=== PATIENT | male | born 1930 | race Caucasian/White ===

== ENCOUNTER 2019-06-14 04:24 | Inpatient (IN) ==
[2019-06-14] MEDS ORDERED: IPRATROPIUM/ALBUTEROL 3 ML AMPUL.NEB NEB ONE (05:00)
--- NOTE | 2019-06-14 05:00 | Emergency Department Note ---
Fall HPI - General Chief Complaint: Fall Stated Complaint: fALL Time Seen by Provider: 06/14/19 04:49 Source: patient Mode of arrival: ambulatory Limitations: no limitations - History of Present Illness HPI Narrative: 89-year-old male brought in by his children for fall out of bed this morning. He is confused and talking nonsense. He is unable to get up by himself. In the process of getting him up he scraped his knees. No other injuries are reported. All history is per his children-I am unable to get a full history or review of systems from him - Related Data Home Medications Medication Instructions Recorded Confirmed Bisoprolol Fumarate 5 mg PO DAILY 05/09/17 05/06/19 Pravastatin [Pravachol] 40 mg PO HS 05/09/17 05/06/19 metFORMIN [Glucophage] 750 mg PO BIDCC 05/09/17 05/06/19 aspirin 81 mg tablet,delayed 81 mg PO QDAY 10/13/17 05/06/19 release pantoprazole 40 mg tablet,delayed 40 mg PO QDAY 10/13/17 05/06/19 release ferrous gluconate 324 mg (37.5 mg 324 mg PO QDAY tab 12/15/17 05/06/19 iron) tablet chlorthalidone 25 mg tablet 25 mg PO QDAY 05/27/18 05/06/19 hydrochlorothiazide 12.5 mg capsule 12.5 mg PO QDAY 05/27/18 05/06/19 telmisartan 80 mg-amlodipine 5 mg 1 tab PO QDAY 05/27/18 05/06/19 tablet vitamins A,C,D-apjr-yptldb 14,320 1 cap PO BID 05/27/18 05/06/19 unit-226 mg-200 unit capsule vitamins A,C,D-shxc-nanjha 14,320 1 cap PO ONCE cap 05/06/19 05/06/19 unit-226 mg-200 unit capsule Previous Rx's Medication Instructions Recorded finasteride 5 mg tablet 5 mg PO QDAY #30 tab 11/23/18 tamsulosin 0.4 mg capsule 0.8 mg PO QDAY #60 cap 11/23/18 Allergies Allergy/AdvReac Type Severity Reaction Status Date / Time No Known Drug Allergies Allergy Verified 05/06/19 09:52 Review of Systems All systems ED: reviewed and negative except as stated. 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) Urge incontinence (Chronic) Essential (primary) hypertension (Chronic) Type 2 diabetes mellitus without complication (Chronic) 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 Normocephalic atraumatic. Conjunctive are clear sclerae white and icteric. Wearing nasal cannula oxygen. No nasal congestion or discharge. Oropharynx pink moist. Posterior pharynx clear. Neck is supple without lymphadenopathy thyromegaly or carotid bruit. Heart is regular rate and rhythm no murmur appreciated. Lungs are clear to auscultation bilaterally but he does have end expiratory wheezes. Abdomen soft nontender nondistended. No peritoneal signs or guarding. No pedal edema. Bilateral abrasions on patella. No ecchymoses. Alert but not oriented. He is unable to give meaningful history or review of systems. Limitations: no limitations Course Vital Signs Temperature 98.6 F 06/14/19 04:26 Pulse Rate 92 H 06/14/19 04:26 Respiratory Rate 25 H 06/14/19 04:26 Blood Pressure 103/44 06/14/19 04:26 Pulse Oximetry (%) 89 L 06/14/19 04:26 Temperature 98.6 F 06/14/19 04:26 Pulse Rate 82 06/14/19 08:16 Respiratory Rate 24 H 06/14/19 05:20 Blood Pressure 115/54 06/14/19 08:16 Pulse Oximetry (%) 93 06/14/19 08:16 Fall - Lab Data Lab results reviewed: Yes I reviewed the patient's lab results. Result diagrams: 06/14/19 05:00 06/14/19 05:00 Lab Results 06/14/19 06/14/19 06/14/19 Range/Units 05:00 05:00 05:00 WBC 19.8 H (4.5-11.0) K/mcL RBC 4.28 L (4.50-5.90) M/mcL Hgb 12.4 L (13.5-16.5) g/dL Hct 38.1 L (41.0-55.0) % POC Hct 39.0 L (41.0-55.0) % MCV 88.9 (80.0-100.0) fL MCH 29.0 (26.0-34.0) pg MCHC 32.6 (31.0-36.0) g/dL RDW 14.3 (11.5-14.5) % Plt Count 237 (140-440) K/mcL MPV 9.4 (7.4-10.4) fL Gran % 92.1 H (38.0-78.0) % Lymph % (Auto) 2.2 L (15.5-49.0) % Bethel % (Auto) 5.7 (1.0-12.0) % Eos % (Auto) 0 (0.0-7.0) % Baso % (Auto) 0 (0.0-2.0) % Gran # 18.3 H (1.8-8.0) K/mcL Lymph # (Auto) 0.4 L (1.5-4.8) K/mcL Bethel # (Auto) 1.1 H (0.1-0.9) K/mcL Eos # (Auto) 0 (0.0-0.7) K/mcL Baso # (Auto) 0 (0.0-0.3) K/mcL Differential Comment VBG Lactic Acid 5.4 H* (0.5-2.0) mmol/L POC Sodium 142 (133-145) mmol/L Sodium 141 (133-145) mmol/L POC Potassium 3.6 (3.3-5.1) mmol/L Potassium 3.7 (3.3-5.1) mmol/L POC Chloride 101 (96-108) mmol/L Chloride 99 (96-108) mmol/L Carbon Dioxide 22 (22-30) mmol/L POC Total CO2 23 (22-30) mmol/L Anion Gap 20.0 H (8-16) POC BUN 28 H (8-23) mg/dl BUN 28 H (8-23) mg/dl Creatinine 1.8 H (0.7-1.2) mg/dl POC Creatinine 1.9 H (0.7-1.2) mg/dl GFR Calculation 33 Glucose 238 H (70-105) mg/dL POC Glucose 239 H (70-105) mg/dL Calcium 7.9 L (8.6-10.4) mg/dl POC WB Ioniz Calcium 0.94 L (1.16-1.32) mmol/L Total Bilirubin 1.1 H (0.0-1.0) mg/dL AST 209 H (0-37) U/l ALT 147 H (0-40) U/l Alkaline Phosphatase 299 H (39-117) U/L Total Protein 6.5 (5.9-8.4) gm/dL Albumin 3.8 (3.2-5.2) gm/dL Globulin 2.7 (2.2-3.7) gm/dL Albumin/Globulin Ratio 1.4 (1.0-2.3) Prolactin (4.0-15.2) ng/ml Urine Color Urine Appearance Urine pH (5.0-9.0) Ur Specific Rumson (1.000-1.035) Urine Protein (NEG) mg/dL Urine Glucose (UA) (NEG) mg/dL Urine Ketones (NEG) mg/dL Urine Occult Blood (<0.03) mg/dL Urine Nitrate (NEG) Urine Bilirubin (NEG) mg/dL Urine Urobilinogen (NEG) mg/dL Ur Leukocyte Esterase (NEG) /uL Urine RBC (0-1) /hpf Urine WBC (0-4) /hpf Ur Squamous Epith Cells (0-4) /hpf Urine Bacteria (0) /hpf Hyaline Casts (0-2) /lpf Urine Mucus (0) /hpf Ur Culture Indicated? 06/14/19 06/14/19 Range/Units 05:55 06:36 WBC (4.5-11.0) K/mcL RBC (4.50-5.90) M/mcL Hgb (13.5-16.5) g/dL Hct (41.0-55.0) % POC Hct (41.0-55.0) % MCV (80.0-100.0) fL MCH (26.0-34.0) pg MCHC (31.0-36.0) g/dL RDW (11.5-14.5) % Plt Count (140-440) K/mcL MPV (7.4-10.4) fL Gran % (38.0-78.0) % Lymph % (Auto) (15.5-49.0) % Bethel % (Auto) (1.0-12.0) % Eos % (Auto) (0.0-7.0) % Baso % (Auto) (0.0-2.0) % Gran # (1.8-8.0) K/mcL Lymph # (Auto) (1.5-4.8) K/mcL Bethel # (Auto) (0.1-0.9) K/mcL Eos # (Auto) (0.0-0.7) K/mcL Baso # (Auto) (0.0-0.3) K/mcL Differential Comment VBG Lactic Acid (0.5-2.0) mmol/L POC Sodium (133-145) mmol/L Sodium (133-145) mmol/L POC Potassium (3.3-5.1) mmol/L Potassium (3.3-5.1) mmol/L POC Chloride (96-108) mmol/L Chloride (96-108) mmol/L Carbon Dioxide (22-30) mmol/L POC Total CO2 (22-30) mmol/L Anion Gap (8-16) POC BUN (8-23) mg/dl BUN (8-23) mg/dl Creatinine (0.7-1.2) mg/dl POC Creatinine (0.7-1.2) mg/dl GFR Calculation Glucose (70-105) mg/dL POC Glucose (70-105) mg/dL Calcium (8.6-10.4) mg/dl POC WB Ioniz Calcium (1.16-1.32) mmol/L Total Bilirubin (0.0-1.0) mg/dL AST (0-37) U/l ALT (0-40) U/l Alkaline Phosphatase (39-117) U/L Total Protein (5.9-8.4) gm/dL Albumin (3.2-5.2) gm/dL Globulin (2.2-3.7) gm/dL Albumin/Globulin Ratio (1.0-2.3) Prolactin 46.7 H (4.0-15.2) ng/ml Urine Color Lori Urine Appearance Clear Urine pH 5.0 (5.0-9.0) Ur Specific Rumson 1.016 (1.000-1.035) Urine Protein 30 A (NEG) mg/dL Urine Glucose (UA) 50 A (NEG) mg/dL Urine Ketones 5/tr A (NEG) mg/dL Urine Occult Blood 0.03 A (<0.03) mg/dL Urine Nitrate Neg (NEG) Urine Bilirubin Neg (NEG) mg/dL Urine Urobilinogen 4.0 A (NEG) mg/dL Ur Leukocyte Esterase Neg (NEG) /uL Urine RBC 9 H (0-1) /hpf Urine WBC 3 (0-4) /hpf Ur Squamous Epith Cells 1 (0-4) /hpf Urine Bacteria 0 (0) /hpf Hyaline Casts 20 H (0-2) /lpf Urine Mucus Few (0) /hpf Ur Culture Indicated? No - Radiology Data Radiology results reviewed: Yes I reviewed the patient's radiology results. Chest x-ray shows no acute findings - EKG Data EKG attestation: Yes I reviewed and interpreted this EKG., Yes There are no EKG findings of acute coronary syndrome, Yes This EKG will be read by industrial service technician EKG results narrative: EKG shows sinus rhythm with a rate of 92 with several PVCs. Borderline long SC and long QT 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 by [employer]/PA only: No Clinical Impression: Abrasion Sepsis Qualifiers: Sepsis type: sepsis due to unspecified organism Sepsis acute organ dysfunction status: with acute organ dysfunction Severe sepsis acute organ dysfunction type: acute renal failure Acute renal failure type: unspecified Severe sepsis shock status: without septic shock Qualified Code(s): A41.9 - Sepsis, unspecified organism Fall Qualifiers: Encounter type: initial encounter Qualified Code(s): W19.XXXA - Unspecified fall, initial encounter Summary: Likely urinary tract infection causing confusion and fall. Bilateral abrasions on knees. Ordered work-up with laboratory chest x-ray. EKG just shows some PVCs Lactic acid came back elevated so we will start IV fluids. Concern for sepsis : Has leukocytosis along with elevated lactic acid and altered mental status. Blood pressure has been stable at low normal not requiring pressors. Blood cultures ordered with antibiotic. Influenza swab ordered Hospitalist wanted further [id number] results. Patient is handed off to Dr. Oliveira at shift change for further work-up and admission Disposition: Xfer As Inpt ([facility]) Condition: Critical Referrals: David Mccray MD [Primary Care Provider] -
[2019-06-14 05:15] LABS: POC Blood Urea Nitrogen 28 mg/dl (8-23); POC CO2 23 mmol/L (22-30); POC Calcium, Ionized 0.94 mmol/L (1.16-1.32); POC Chloride 101 mmol/L (96-108); POC Creatinine 1.9 mg/dl (0.7-1.2); POC Glucose, Random 239 mg/dL (70-105); POC Potassium 3.6 mmol/L (3.3-5.1); POC Sodium 142 mmol/L (133-145)
--- NOTE | 2019-06-14 05:23 | XRay Report ---
CLINICAL INFORMATION: FALL COMPARISON: 05/06/2019 FINDINGS: Heart size is normal for technique. Increased density in the retrocardiac region likely indicates a hiatal hernia. There is also noted on prior study. The remaining mediastinum and pulmonary vessels are normal. Lungs are clear. No effusions IMPRESSION: No acute disease. Probable hiatal hernia Interpreted and Authenticated by: Otto Dominique 06/14/19
[2019-06-14 05:44] LABS: Basophils # (Auto) 0 K/mcL (0.0-0.3); Basophils % (Auto) 0 % (0.0-2.0); Eosinophils # (Auto) 0 K/mcL (0.0-0.7); Eosinophils % (Auto) 0 % (0.0-7.0); Granulocytes % (Auto) 92.1 % (38.0-78.0); Hematocrit 38.1 % (41.0-55.0); Hemoglobin 12.4 g/dL (13.5-16.5); Lymphocytes # (Auto) 0.4 K/mcL (1.5-4.8); Lymphocytes % (Auto) 2.2 % (15.5-49.0); Mean Cell Volume 88.9 fL (80.0-100.0); Mean Corpuscular HGB Conc 32.6 g/dL (31.0-36.0); Mean Platelet Volume 9.4 fL (7.4-10.4); Monocytes # (Auto) 1.1 K/mcL (0.1-0.9); Monocytes % (Auto) 5.7 % (1.0-12.0); Platelet Count 237 K/mcL (140-440); RBC 4.28 M/mcL (4.50-5.90); Red Cell Distribution Width 14.3 % (11.5-14.5); WBC 19.8 K/mcL (4.5-11.0)
[2019-06-14] MEDS ORDERED: 0.9 % SODIUM CHLORIDE 1,000 ML IV ONE ×2 (06:09→06:17)
[2019-06-14 06:14] LABS: ALT/SGPT 147 U/l (0-40); AST/SGOT 209 U/l (0-37); Albumin 3.8 gm/dL (3.2-5.2); Albumin/Globulin Ratio 1.4 (1.0-2.3); Alkaline Phosphatase 299 U/L (39-117); Bilirubin,Total 1.1 mg/dL (0.0-1.0); Blood Urea Nitrogen 28 mg/dl (8-23); Calcium 7.9 mg/dl (8.6-10.4); Carbon Dioxide 22 mmol/L (22-30); Chloride 99 mmol/L (96-108); Globulin 2.7 gm/dL (2.2-3.7); Glomerular Filtration Rate 33; Glucose 238 mg/dL (70-105)
[2019-06-14] MEDS ORDERED: VANCOMYCIN 1,000 MG in 0.9 % SODIUM CHLORIDE 250 ML IV ONE (06:18)
[2019-06-14] MEDS ORDERED: PIPERACILLIN SODIUM/TAZOBACTAM 3.375 GM in DEXTROSE 5% IN WATER 50 ML IV ONE (06:18)
[2019-06-14 06:47] LABS: Appearance,Urine CLEAR; Bacteria,Urine 0 /hpf (0); Bilirubin,Urine NEG (NEG); Color,Urine AMBER; Culture Indicated,Urine NO; Glucose,Urine (UA) 50 mg/dL (NEG); Ketones,Urine 5/TR mg/dL (NEG); Leukocyte Esterase,Urine NEG /uL (NEG); Mucus,Urine FEW /hpf (0); Nitrate,Urine NEG (NEG); Protein,Urine 30 mg/dL (NEG); Specific Gravity,Urine 1.016 (1.000-1.035); Urine Blood 0.03 mg/dL (<0.03); Urine Hyaline Cast 20 /lpf (0-2); Urine RBC 9 /hpf (0-1); Urine Squamous Epithelial Cell 1 /hpf (0-4); Urine WBC 3 /hpf (0-4)
[2019-06-14 08:07] LABS: Prolactin 46.7 ng/ml (4.0-15.2)
--- NOTE | 2019-06-14 08:33 | Cat Scan Report ---
CLINICAL INFORMATION: Fever. Evaluate for infection COMPARISON: None. TECHNIQUE: 0.625 mm mm helical slices were obtained from the lung apices through the subtrochanteric regions of the femurs. Following reconstruction, 2.5 mm sagittal, coronal and axial reformatted images were processed and reviewed at multiple windows and levels. 7 mm MIP reconstructions were obtained through the lungs to optimize nodule detection.The exam was performed using radiation dose optimization techniques including, but not limited to, automated exposure control, adjustment of the mA and/or kV according to patient size and use of iterative reconstruction technique. FINDINGS: Pulmonary parenchymal windows show mild airspace disease in the posterior peripheral lower lobes. There is associated subsegmental and segmental bronchiectasis. This is more likely fibrosis and atelectasis rather than developing aspiration pneumonia or infection. No effusion. A large hiatal hernia is is appreciated. The heart is mildly enlarged with extraordinarily heavy calcification in the coronary arteries. The noncontrast central pulmonary arteries are mildly enlarged: main pulmonary artery diameter 3.5 cm suggesting mild pulmonary hypertension. The noncontrasted thoracic aorta is normal in diameter with scattered atherosclerotic plaque. There is no adenopathy in the mediastinal hilar or axillary region. The thyroid is diminutive. Abdominal images show multiple small stones in the gallbladder. The gallbladder also shows equivocal wall thickening, bowel is normal caliber - 6 mm. Common bile ducts are normal caliber CBD is 5 mm. The noncontrasted liver, both kidneys, adrenal glands, spleen, pancreas are normal. The aorta demonstrates heavy atherosclerotic plaque but is normal diameter. Pelvic images show marked enlargement of the prostate (7.5 x 7.2 cm). There is diffuse wall thickening of the urinary bladder likely representing chronic bladder outlet narrowing. Partial sigmoid colectomy changes noted. The remainder of the colon appendix, small bowel and stomach are normal. Large (8 cm) inguinal hernia contains only mesenteric fat with a small amount of edema in the hernia sac. Bone windows show no focal osseous abnormality. IMPRESSION: 1. Marked prostatic hypertrophy including a 2.6 cm nodule from the central zone invaginating the urinary bladder base. Diffuse wall thickening of the urinary bladder likely represents chronic bladder outlet obstruction. Patient is at risk for cystitis. 2. Large right inguinal hernia containing only mesenteric fat with a small amount of edema. 3. Cholelithiasis. There is equivocal wall thickening the gallbladder suggesting mild cholecystitis - suggest limited gallbladder ultrasound to confirm. 4. Mild airspace disease confined to the periphery of both inferior lower lobe almost certainly represent atelectasis or scarring. There is associated segmental and subsegmental bronchiectasis. The patient is at risk for aspiration pneumonia with a large hiatal hernia and dilatation of the thoracic esophagus. 5. Mild pulmonary hypertension. Interpreted and Authenticated by: Otto Dominique 06/14/19
[2019-06-14 09:38] LABS: INR 1.3 (0.9-1.1); Prothrombin Time 15.9 sec (11.9-14.5)
--- NOTE | 2019-06-14 10:00 | Cat Scan Report ---
CLINICAL INFORMATION: Extremity weakness history of trauma COMPARISON: None. TECHNIQUE: 2.5 mm helical slices were obtained in the skull base to vertex. Following reconstruction, axial reformatted images were reviewed at bone and parenchymal windows. The exam was performed using radiation dose optimization techniques including, but not limited to, automated exposure control, adjustment of the mA and/or kV according to patient size and use of iterative reconstruction technique. FINDINGS: The ventricles, sulci, fissures, and cisterns are symmetrically enlarged compatible with mild age-related atrophy - no subdural hemorrhage or extra-axial fluid collections or mass appreciated. Patchy chronic ischemic changes in the cerebral white matter expected for age. There is no intracerebral hemorrhage, mass effect, edema or other acute finding. Bone windows show no fracture or other osseous abnormality. IMPRESSION: Mild atrophy and patchy chronic ischemic changes in the deep cerebral white matter that expected for age. There is no intracerebral hemorrhage or acute posttraumatic change. Interpreted and Authenticated by: Otto Dominique 06/14/19
--- NOTE | 2019-06-14 10:24 | Emergency Department Note ---
Fall HPI - General Chief Complaint: Fall Stated Complaint: fALL Time Seen by Provider: 06/14/19 04:49 Source: patient Mode of arrival: ambulatory - Related Data Home Medications Medication Instructions Recorded Confirmed Bisoprolol Fumarate 5 mg PO DAILY 05/09/17 06/14/19 Pravastatin [Pravachol] 40 mg PO HS 05/09/17 06/14/19 metFORMIN [Glucophage] 750 mg PO BIDCC 05/09/17 06/14/19 aspirin 81 mg tablet,delayed 81 mg PO QDAY 10/13/17 06/14/19 release pantoprazole 40 mg tablet,delayed 40 mg PO QDAY 10/13/17 06/14/19 release ferrous gluconate 324 mg (37.5 mg 324 mg PO QDAY tab 12/15/17 06/14/19 iron) tablet hydrochlorothiazide 12.5 mg capsule 12.5 mg PO QDAY 05/27/18 06/14/19 telmisartan 80 mg-amlodipine 5 mg 1 tab PO QDAY 05/27/18 06/14/19 tablet Vit A/Vit C/Vit E/Zinc/Copper 1 each PO DAILY 06/14/19 06/14/19 [Icaps Areds Softgel] Previous Rx's Medication Instructions Recorded finasteride 5 mg tablet 5 mg PO QDAY #30 tab 11/23/18 tamsulosin 0.4 mg capsule 0.8 mg PO QDAY #60 cap 11/23/18 Allergies Allergy/AdvReac Type Severity Reaction Status Date / Time No Known Drug Allergies Allergy Verified 05/06/19 09:52 Fall PMH - Past Medical History Medical history: Reports: arthritis, DM, hyperlipidemia, hypertension, other (Anemia, hemorrhoids, prostate problems with lower urinary tract symptoms) - Social History smoking status: Former smoker Alcohol use: Reports: None Drug use: Reports: none Physical Exam Limitations: no limitations Course - Reevaluation(s) Reevaluation #1: Please see history and physical are documented by Dr. Gipson . Further history is obtained from the son who states that he has never been disoriented, he has not been confused he denies headache. He has no neck stiffness on physical exam he has no focal neurologic deficits except that he had bilateral leg weakness l ikely from an episode of hypotension and infection. At this point he has no source of infection, gallbladder ultrasound reportedly not convincing for acute cholecystitis although there was a little bit of sludge but no dilation of his common bile duct, no pericholecystic fluid. It is not tender in that area on physical exam. His abdominal exam is rather benign but he does have a significant history of diverticulosis and diverticulitis. Status post colon resection on the left side for diverticular disease and this was done several years ago by Dr. Tamayo. At this point he has regained strength in his legs with just IV fluids. He was started on antibiotics. Other baseline labs have been done. White count is elevated 19,000 Vital Signs Temperature 98.6 F 06/14/19 04:26 Pulse Rate 92 H 06/14/19 04:26 Respiratory Rate 25 H 06/14/19 04:26 Blood Pressure 103/44 06/14/19 04:26 Pulse Oximetry (%) 89 L 06/14/19 04:26 Temperature 98.9 F 06/14/19 10:10 Pulse Rate 89 06/14/19 09:01 Respiratory Rate 24 H 06/14/19 05:20 Blood Pressure 106/68 06/14/19 09:16 Pulse Oximetry (%) 93 06/14/19 09:01 Fall - [facility] Narrative Medical decision making narrative: Impression is infection, undetermined etiology. History of diverticulitis. Further studies are pending. Plan is hospital admission. Discussed with our hospitalist., Discussed with Dr. Cheung. At this time he he will be admitted, IV fluids given. His strength was improving with IV fluids as well as IV antibiotics. - Lab Data Lab results reviewed: Yes I reviewed the patient's lab results. Result diagrams: 06/14/19 05:00 06/14/19 05:00 Lab Results 06/14/19 06/14/19 06/14/19 Range/Units 05:00 05:00 05:00 WBC 19.8 H (4.5-11.0) K/mcL RBC 4.28 L (4.50-5.90) M/mcL Hgb 12.4 L (13.5-16.5) g/dL Hct 38.1 L (41.0-55.0) % POC Hct 39.0 L (41.0-55.0) % MCV 88.9 (80.0-100.0) fL MCH 29.0 (26.0-34.0) pg MCHC 32.6 (31.0-36.0) g/dL RDW 14.3 (11.5-14.5) % Plt Count 237 (140-440) K/mcL MPV 9.4 (7.4-10.4) fL Gran % 92.1 H (38.0-78.0) % Lymph % (Auto) 2.2 L (15.5-49.0) % [place] % (Auto) 5.7 (1.0-12.0) % Eos % (Auto) 0 (0.0-7.0) % Baso % (Auto) 0 (0.0-2.0) % Gran # 18.3 H (1.8-8.0) K/mcL Lymph # (Auto) 0.4 L (1.5-4.8) K/mcL [place] # (Auto) 1.1 H (0.1-0.9) K/mcL Eos # (Auto) 0 (0.0-0.7) K/mcL Baso # (Auto) 0 (0.0-0.3) K/mcL Differential Comment PT (11.9-14.5) sec INR (0.9-1.1) VBG Lactic Acid 5.4 H* (0.5-2.0) mmol/L POC Sodium 142 (133-145) mmol/L Sodium 141 (133-145) mmol/L POC Potassium 3.6 (3.3-5.1) mmol/L Potassium 3.7 (3.3-5.1) mmol/L POC Chloride 101 (96-108) mmol/L Chloride 99 (96-108) mmol/L Carbon Dioxide 22 (22-30) mmol/L POC Total CO2 23 (22-30) mmol/L Anion Gap 20.0 H (8-16) POC BUN 28 H (8-23) mg/dl BUN 28 H (8-23) mg/dl Creatinine 1.8 H (0.7-1.2) mg/dl POC Creatinine 1.9 H (0.7-1.2) mg/dl GFR Calculation 33 Glucose 238 H (70-105) mg/dL POC Glucose 239 H (70-105) mg/dL Calcium 7.9 L (8.6-10.4) mg/dl POC WB Ioniz Calcium 0.94 L (1.16-1.32) mmol/L Total Bilirubin 1.1 H (0.0-1.0) mg/dL AST 209 H (0-37) U/l ALT 147 H (0-40) U/l Alkaline Phosphatase 299 H (39-117) U/L Ammonia (16-60) umol/L C-Reactive Protein (0.0-0.8) mg/dl Total Protein 6.5 (5.9-8.4) gm/dL Albumin 3.8 (3.2-5.2) gm/dL Globulin 2.7 (2.2-3.7) gm/dL Albumin/Globulin Ratio 1.4 (1.0-2.3) Procalcitonin (<0.10) ng/mL Prolactin (4.0-15.2) ng/ml Urine Color Urine Appearance Urine pH (5.0-9.0) Ur Specific [place] (1.000-1.035) Urine Protein (NEG) mg/dL Urine Glucose (UA) (NEG) mg/dL Urine Ketones (NEG) mg/dL Urine Occult Blood (<0.03) mg/dL Urine Nitrate (NEG) Urine Bilirubin (NEG) mg/dL Urine Urobilinogen (NEG) mg/dL Ur Leukocyte Esterase (NEG) /uL Urine RBC (0-1) /hpf Urine WBC (0-4) /hpf Ur Squamous Epith Cells (0-4) /hpf Urine Bacteria (0) /hpf Hyaline Casts (0-2) /lpf Urine Mucus (0) /hpf Ur Culture Indicated? 06/14/19 06/14/19 06/14/19 Range/Units 05:55 06:36 06:36 WBC (4.5-11.0) K/mcL RBC (4.50-5.90) M/mcL Hgb (13.5-16.5) g/dL Hct (41.0-55.0) % POC Hct (41.0-55.0) % MCV (80.0-100.0) fL MCH (26.0-34.0) pg MCHC (31.0-36.0) g/dL RDW (11.5-14.5) % Plt Count (140-440) K/mcL MPV (7.4-10.4) fL Gran % (38.0-78.0) % Lymph % (Auto) (15.5-49.0) % [place] % (Auto) (1.0-12.0) % Eos % (Auto) (0.0-7.0) % Baso % (Auto) (0.0-2.0) % Gran # (1.8-8.0) K/mcL Lymph # (Auto) (1.5-4.8) K/mcL [place] # (Auto) (0.1-0.9) K/mcL Eos # (Auto) (0.0-0.7) K/mcL Baso # (Auto) (0.0-0.3) K/mcL Differential Comment PT (11.9-14.5) sec INR (0.9-1.1) VBG Lactic Acid (0.5-2.0) mmol/L POC Sodium (133-145) mmol/L Sodium (133-145) mmol/L POC Potassium (3.3-5.1) mmol/L Potassium (3.3-5.1) mmol/L POC Chloride (96-108) mmol/L Chloride (96-108) mmol/L Carbon Dioxide (22-30) mmol/L POC Total CO2 (22-30) mmol/L Anion Gap (8-16) POC BUN (8-23) mg/dl BUN (8-23) mg/dl Creatinine (0.7-1.2) mg/dl POC Creatinine (0.7-1.2) mg/dl GFR Calculation Glucose (70-105) mg/dL POC Glucose (70-105) mg/dL Calcium (8.6-10.4) mg/dl POC WB Ioniz Calcium (1.16-1.32) mmol/L Total Bilirubin (0.0-1.0) mg/dL AST (0-37) U/l ALT (0-40) U/l Alkaline Phosphatase (39-117) U/L Ammonia (16-60) umol/L C-Reactive Protein (0.0-0.8) mg/dl Total Protein (5.9-8.4) gm/dL Albumin (3.2-5.2) gm/dL Globulin (2.2-3.7) gm/dL Albumin/Globulin Ratio (1.0-2.3) Procalcitonin 13.65 (<0.10) ng/mL Prolactin 46.7 H (4.0-15.2) ng/ml Urine Color Lori Urine Appearance Clear Urine pH 5.0 (5.0-9.0) Ur Specific [place] 1.016 (1.000-1.035) Urine Protein 30 A (NEG) mg/dL Urine Glucose (UA) 50 A (NEG) mg/dL Urine Ketones 5/tr A (NEG) mg/dL Urine Occult Blood 0.03 A (<0.03) mg/dL Urine Nitrate Neg (NEG) Urine Bilirubin Neg (NEG) mg/dL Urine Urobilinogen 4.0 A (NEG) mg/dL Ur Leukocyte Esterase Neg (NEG) /uL Urine RBC 9 H (0-1) /hpf Urine WBC 3 (0-4) /hpf Ur Squamous Epith Cells 1 (0-4) /hpf Urine Bacteria 0 (0) /hpf Hyaline Casts 20 H (0-2) /lpf Urine Mucus Few (0) /hpf Ur Culture Indicated? No 06/14/19 06/14/19 06/14/19 Range/Units 06:36 06:36 09:26 WBC (4.5-11.0) K/mcL RBC (4.50-5.90) M/mcL Hgb (13.5-16.5) g/dL Hct (41.0-55.0) % POC Hct (41.0-55.0) % MCV (80.0-100.0) fL MCH (26.0-34.0) pg MCHC (31.0-36.0) g/dL RDW (11.5-14.5) % Plt Count (140-440) K/mcL MPV (7.4-10.4) fL Gran % (38.0-78.0) % Lymph % (Auto) (15.5-49.0) % [place] % (Auto) (1.0-12.0) % Eos % (Auto) (0.0-7.0) % Baso % (Auto) (0.0-2.0) % Gran # (1.8-8.0) K/mcL Lymph # (Auto) (1.5-4.8) K/mcL [place] # (Auto) (0.1-0.9) K/mcL Eos # (Auto) (0.0-0.7) K/mcL Baso # (Auto) (0.0-0.3) K/mcL Differential Comment PT 15.9 H (11.9-14.5) sec INR 1.3 H (0.9-1.1) VBG Lactic Acid (0.5-2.0) mmol/L POC Sodium (133-145) mmol/L Sodium (133-145) mmol/L POC Potassium (3.3-5.1) mmol/L Potassium (3.3-5.1) mmol/L POC Chloride (96-108) mmol/L Chloride (96-108) mmol/L Carbon Dioxide (22-30) mmol/L POC Total CO2 (22-30) mmol/L Anion Gap (8-16) POC BUN (8-23) mg/dl BUN (8-23) mg/dl Creatinine (0.7-1.2) mg/dl POC Creatinine (0.7-1.2) mg/dl GFR Calculation Glucose (70-105) mg/dL POC Glucose (70-105) mg/dL Calcium (8.6-10.4) mg/dl POC WB Ioniz Calcium (1.16-1.32) mmol/L Total Bilirubin (0.0-1.0) mg/dL AST (0-37) U/l ALT (0-40) U/l Alkaline Phosphatase (39-117) U/L Ammonia 11 L (16-60) umol/L C-Reactive Protein 2.5 H (0.0-0.8) mg/dl Total Protein (5.9-8.4) gm/dL Albumin (3.2-5.2) gm/dL Globulin (2.2-3.7) gm/dL Albumin/Globulin Ratio (1.0-2.3) Procalcitonin (<0.10) ng/mL Prolactin (4.0-15.2) ng/ml Urine Color Urine Appearance Urine pH (5.0-9.0) Ur Specific [place] (1.000-1.035) Urine Protein (NEG) mg/dL Urine Glucose (UA) (NEG) mg/dL Urine Ketones (NEG) mg/dL Urine Occult Blood (<0.03) mg/dL Urine Nitrate (NEG) Urine Bilirubin (NEG) mg/dL Urine Urobilinogen (NEG) mg/dL Ur Leukocyte Esterase (NEG) /uL Urine RBC (0-1) /hpf Urine WBC (0-4) /hpf Ur Squamous Epith Cells (0-4) /hpf Urine Bacteria (0) /hpf Hyaline Casts (0-2) /lpf Urine Mucus (0) /hpf Ur Culture Indicated? - Radiology Data Radiology results reviewed: Yes I reviewed the patient's radiology results. 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/PA only: No Clinical Impression: Abrasion, Diverticulitis, Sepsis associated hypotension Sepsis Qualifiers: Sepsis type: sepsis due to unspecified organism Sepsis acute organ dysfunction status: with acute organ dysfunction Severe sepsis acute organ dysfunction type: acute renal failure Acute renal failure type: unspecified Severe sepsis shock status: without septic shock Qualified Code(s): A41.9 - Sepsis, unspecified o rganism Fall Qualifiers: Encounter type: initial encounter Qualified Code(s): W19.XXXA - Unspecified fall, initial encounter Disposition: Xfer As Inpt ([facility]) Condition: Fair Referrals: David Mccray MD [Primary Care Provider] -
--- NOTE | 2019-06-14 10:36 | Ultrasound Report ---
CLINICAL INFORMATION: Fever COMPARISON: None. FINDINGS: There are multiple stones present within the gallbladder. The gallbladder wall is mildly thickened: 3.5 mm. No focal tenderness. Common bile is normal caliber: 6 mm. The liver and pancreas are normal in size, configuration echotexture without focal lesion. No free fluid IMPRESSION: Cholelithiasis with mild gallbladder wall thickening suggesting developing cholecystitis. Interpreted and Authenticated by: Otto Dominique 06/14/19
--- NOTE | 2019-06-14 11:10 | Internal Med History&Physical ---
Medical - H&P: HPI Patient information: Note initiated : 06/14/19 at 11:05 am Service Date, if different from initiated Date: [] Patient: Parag Monk 89 y/o M admitted on for fALL. Chief Complaint: [] History of present illness: Mr. Monk is a 89 year old M Presents the ED after fall with weakness. History obtained from patient and family. Patient states he felt fine going to bed last night and felt fine yesterday. In the middle night he up to urinate went to the bathroom came back to bed but was too weak to get into bed and had a controlled fall to the ground scraping his knees on the carpet. He denies any headache fever chills stomach pain diarrhea constipation. When asked about chest pain he said he did have chest pain in the center before he went to bed while he was sitting in his chair that lasted for several hours and felt better after taking [place]. He was seen in minor care a month prior for the similar type of chest pain/epigastric pain had a EKG and troponin which were unremarkable. There was some initial concern about confusion but discussion with the family he is never been confused. Per EMS he is quite weak and it sounds like there might of been a low blood pre ssure obtained by EMS but I do not have the results. In the ED is found to have leukocytosis with elevated lactate level mildly elevated liver enzymes and elevated urine creatinine. Systolic blood pressure in the ER range from 97-124. He received several liters of IV fluids as well as vancomycin and Zosyn. CT abdomen pelvis was obtained which revealed atelectasis large right inguinal hernia and hiatal hernia. It did show cholelithiasis with some gallbladder wall thickening. Gallbladder ultrasound showed cholelithiasis with mild gallbladder wall thickening common bile duct was within normal limits, no mention of pericholecystic fluid. Case was discussed with Dr. Cheung who will review the abdominal imaging. Other than the possible gallbladder no obvious source of infection seen at this time. Review of Systems: Pertinent positive as above. Denies headache/fever/chills/nausea/vomiti ng/abdominal pain/cough/dyspnea/diarrhea. 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) Urge incontinence (Chronic) Essential (primary) hypertension (Chronic) Type 2 diabetes mellitus without complication (Chronic) 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) Past Surgical History (Last Reviewed 05/06/19 @ 10:02 by Lori Francis PA-C) History of colon surgery (Chronic ~1999) History of hernia repair (Chronic) History of surgery (Chronic) Family History (Last Reviewed 05/06/19 @ 10:02 by Lori Francis PA-C) Other Cancer Diabetes Social History (Last Updated 05/06/19 @ 13:02 by Lori Francis PA-C) Quit smoking 40 years ago has a 20 pack smoking history Has a glass of wine 2-3 times a week Ambulates independently Lives at home with his Medical - H&P: Meds Home Medications Medication Instructions Recorded Confirmed Type Bisoprolol Fumarate 5 mg PO DAILY 05/09/17 06/14/19 History Pravastatin [Pravachol] 40 mg PO HS 05/09/17 06/14/19 History metFORMIN [Glucophage] 750 mg PO BIDCC 05/09/17 06/14/19 History aspirin 81 mg tablet,delayed 81 mg PO QDAY 10/13/17 06/14/19 History release pantoprazole 40 mg tablet,delayed 40 mg PO QDAY 10/13/17 06/14/19 History release ferrous gluconate 324 mg (37.5 mg 324 mg PO QDAY tab 12/15/17 06/14/19 History iron) tablet hydrochlorothiazide 12.5 mg capsule 12.5 mg PO QDAY 05/27/18 06/14/19 History telmisartan 80 mg-amlodipine 5 mg 1 tab PO QDAY 05/27/18 06/14/19 History tablet finasteride 5 mg tablet 5 mg PO QDAY #30 tab 11/23/18 06/14/19 Rx tamsulosin 0.4 mg capsule 0.8 mg PO QDAY #60 cap 11/23/18 06/14/19 Rx Vit A/Vit C/Vit E/Zinc/Copper 1 each PO DAILY 06/14/19 06/14/19 History [Icaps Areds Softgel] Allergies Allergy/AdvReac Type Severity Reaction Status Date / Time No Known Drug Allergies Allergy Verified 05/06/19 09:52 Medical - H&P: Exam - Constitutional Vitals: Temp Pulse Resp BP Pulse Ox 98.9 F 89 24 H 106/68 93 06/14/19 10:10 06/14/19 09:01 06/14/19 05:20 06/14/19 09:16 06/14/19 09:01 Exam: General: Alert, Awake, No acute Distress, obese Eyes/N/T: EOMI, PEERL, Head/Neck: neck supple, normocephalic atraumatic CV: RRR, No murmurs, normal s1/s2 Pulm: Mild wheezing bilaterally, no rhonchi rales Abd: soft, nontender, +BS x4 Ext: no clubbing/cyanosis, 1-2+ b/l LE edema Neuro: Alert, no focal deficits, moves all extremities, CN 2-12 grossly intact, symmetrical strength b/l upper/lower, sensations intact b/l upper/lower Skin: warm/dry Medical - H&P: Reslt - Labs CBC & Chem 7: 06/14/19 05:00 06/14/19 05:00 Labs: Short CBC 06/14/19 Range/Units 05:00 WBC 19.8 H (4.5-11.0) K/mcL Hgb 12.4 L (13.5-16.5) g/dL Hct 38.1 L (41.0-55.0) % Plt Count 237 (140-440) K/mcL BMP 06/14/19 05:00 Sodium 141 Potassium 3.7 Chloride 99 Carbon Dioxide 22 BUN 28 H Creatinine 1.8 H Glucose 238 H Calcium 7.9 L Liver Function 06/14/19 Range/Units 05:00 Total Bilirubin 1.1 H (0.0-1.0) mg/dL AST 209 H (0-37) U/l ALT 147 H (0-40) U/l Alkaline Phosphatase 299 H (39-117) U/L Albumin 3.8 (3.2-5.2) gm/dL Urine 06/14/19 Range/Units 05:55 Urine Color Lori Urine Appearance Clear Urine pH 5.0 (5.0-9.0) Ur Specific [place] 1.016 (1.000-1.035) Urine Protein 30 A (NEG) mg/dL Urine Glucose (UA) 50 A (NEG) mg/dL - Impressions CT abdomen pelvis and abdominal ultrasound with some cholelithiasis and mild gallbladder wall thickening. Atelectasis on the chest. Medical - H&P: A/P - Narrative A/P Narrative: A: *Sepsis: Unknown etiology, possible early cholecystitis *Lactic acidosis: *CARLOS on CKD III: volume depletion *Transaminitis: Possibly from transient hypotension versus developing cholecystitis *Low BP: *DM: *HTN/HLD: *GERD: *BPH: Follows with Dr. Poon * P: -IVF's -f/u lactate -Zosyn, pending BC -monitor UOP -trend PCT and LFT's -Dr. Cheung to review abdominal imaging -Hold home BP meds -SSI -IS for atelectasis - -pt/ot -ppx: Lovenox/home PPI DNR
[2019-06-14] MEDS ORDERED: DEXTROSE 50% 50 ML VIAL IV PRN (12:11)
[2019-06-14] MEDS ORDERED: MAGNESIUM SULFATE 2 GM/50 ML BAG IV PRN (12:11)
[2019-06-14] MEDS ORDERED: ONDANSETRON 4 MG/2 ML VIAL IV PRN (12:11)
[2019-06-14] MEDS ORDERED: DEXTROSE 31 GM ORAL.SUSP PO PRN (12:11)
[2019-06-14] MEDS ORDERED: POLYETHYLENE GLYCOL 3350 17 GM PACKET PO PRN (12:11)
[2019-06-14] MEDS ORDERED: POTASSIUM CHLORIDE 20 MEQ TABLET PO PRN ×2 (12:11)
[2019-06-14] MEDS ORDERED: POTASSIUM CHLORIDE 40 MEQ in DEXTROSE 5% IN WATER 500 ML IV PRN (12:11)
[2019-06-14] MEDS ORDERED: LACTULOSE 20 GM/30 ML ORAL.SOL PO PRN (12:11)
[2019-06-14] MEDS ORDERED: SENNOSIDES 1 TABLET PO PRN (12:11)
[2019-06-14] MEDS: 0.9 % SODIUM CHLORIDE 1,000 ML IV SCH (13:03)
[2019-06-14] MEDS: PIPERACILLIN SODIUM/TAZOBACTAM 2.25 GM in DEXTROSE 5% IN WATER 50 ML IV SCH ×3 (13:14→23:59)
[2019-06-14] MEDS: INSULIN LISPRO 1 UNIT/0.01 ML UNIT SQ SCH ×3 (13:22→20:42)
[2019-06-14] MEDS: 0.9 % SODIUM CHLORIDE 10 ML SYRINGE IV SCH ×2 (15:12→20:43)
--- NOTE | 2019-06-14 16:13 | General Surgery Consult Note ---
History of Present Illness Patient information: Note initiated : 06/14/19 at 4:08 pm Service Date, if different from initiated Date: [] Patient: Parag Monk 89 y/o M admitted on 06/14/19 for fALL. Chief Complaint: [] Reason for consult: abdominal pain Requesting physician: Donovan Terry History of present illness: 89-year-old male admitted for evaluation of sepsis and evidence of leukocytosis and dehydration. The patient was found at home on the floor. He had been up to urinate and could not get back in bed. His son could not assist him back in bed so he was brought in by EMS. He was confused and weak. He also had systolic blood pressure in the 100 range but no tachycardia. There is a history which suggests that he did have some mid chest pain earlier in the evening but that resolved. Prior history shows that he was seen in urgent care on 05/06/19 for epigastric pain. His white blood count was 14,200 at that time. He was released to go home and by his memory he had some other episodes of epigastric and mid chest pain. Troponins in the past have been negative for myocardial injury. Patient's white blood count is 19.8 and his lactate on admission was 5.4. BUN is 28 and creatinine is 1.8. When evaluating his liver panel his bili weaver is 1.1 with AST of 209, ALT 147, alkaline phosphatase 29 . Symptoms complex and lab findings suggestive of possible common bile duct stone with potentially early cholangitis. Patient is admitted and has been started on antibiotics. Other source of infection has been undertaken. It is felt that he should have MRCP tomorrow after his stabilize clinically. Review of Systems All systems PM: reviewed and no additional remarkable complaints except as stated (review of systems is not obtainable due to mental status) Past History Past medical history: History taken from records History of diverticulitis Elevated valve stenosis Hypertension Type 2 diabetes mellitus BPH with urinary retention Right inguinal hernia Chronic hiatal hernia Past surgical history: Partial colectomy 2000 diverticulitis Hernia repair 2 Past family history: Family history positive for diabetes mellitus and cancer specifics unknown Past social history: Former smoker but none recently Occasional alcoholic beverage Denies drug use Medications and Allergies Home Medications Medication Instructions Recorded Confirmed Type Bisoprolol Fumarate 5 mg PO DAILY 05/09/17 06/14/19 History Pravastatin [Pravachol] 40 mg PO HS 05/09/17 06/14/19 History metFORMIN [Glucophage] 750 mg PO BIDCC 05/09/17 06/14/19 History aspirin 81 mg tablet,delayed 81 mg PO Q2D 10/13/17 06/14/19 History release pantoprazole 40 mg tablet,delayed 40 mg PO QDAY 10/13/17 06/14/19 History release ferrous gluconate 324 mg (37.5 mg 324 mg PO QDAY tab 12/15/17 06/14/19 History iron) tablet hydrochlorothiazide 12.5 mg capsule 12.5 mg PO QDAY 05/27/18 06/14/19 History telmisartan 80 mg-amlodipine 5 mg 1 tab PO QDAY 05/27/18 06/14/19 History tablet finasteride 5 mg tablet 5 mg PO QDAY #30 tab 11/23/18 06/14/19 Rx tamsulosin 0.4 mg capsule 0.8 mg PO QDAY #60 cap 11/23/18 06/14/19 Rx Vit A/Vit C/Vit E/Zinc/Copper 1 each PO DAILY 06/14/19 06/14/19 History [Icaps Areds Softgel] Allergies Allergy/AdvReac Type Severity Reaction Status Date / Time No Known Drug Allergies Allergy Verified 05/06/19 09:52 Exam Temp Pulse Resp BP Pulse Ox 98.6 F 71 24 H 126/61 96 06/14/19 16:05 06/14/19 16:05 06/14/19 12:19 06/14/19 16:01 06/14/19 16:05 - General physical appearance well developed, well nourished, no distress - Eyes PERRL, normal ocular movement - ENT normal pinna, normal nares, normal mucosa, no congestion, decreased hearing - Head Head exam IM: Present: atraumatic, normocephalic - Neck no masses, no bruits, trachea midline, no lymphadenopathy, no venous distension - Cardiovascular Cardiovascular exam IM: Present: normal rate and rhythm, RRR, +S1, +S2. Absent: JVD, tachycardia - Respiratory normal expansion, normal respiratory effort, clear to auscultation - Abdomen Abdomen: Present: soft, tender (no abdominal or epigastric tenderness noted), bowel sounds Hernia: Present: none - Genitourinary Present: normal penis with no external lesions, other ( Wesley catheter in place) - Integumentary Present: no rash, no growths, no abnormal pigmentation, other ( deep abrasions on both knees covered with dressing) - Neurologic Present: normal coordination, normal sensation, other ( patient no longer appears to be confused as he was originally) - Musculoskeletal Present: other ( gait and stance not tested) - Psychiatric Present: oriented to time, oriented to person, oriented to place, speech is normal, memory intact Results - Labs 06/14/19 05:00 06/14/19 05:00 Abnormal lab results 06/14/19 06/14/19 06/14/19 Range/Units 05:00 05:00 05:00 WBC 19.8 H (4.5-11.0) K/mcL RBC 4.28 L (4.50-5.90) M/mcL Hgb 12.4 L (13.5-16.5) g/dL Hct 38.1 L (41.0-55.0) % POC Hct 39.0 L (41.0-55.0) % Gran % 92.1 H (38.0-78.0) % Lymph % (Auto) 2.2 L (15.5-49.0) % Gran # 18.3 H (1.8-8.0) K/mcL Lymph # (Auto) 0.4 L (1.5-4.8) K/mcL [place] # (Auto) 1.1 H (0.1-0.9) K/mcL PT (11.9-14.5) sec INR (0.9-1.1) VBG Lactic Acid 5.4 H* (0.5-2.0) mmol/L Anion Gap 20.0 H (8-16) POC BUN 28 H (8-23) mg/dl BUN 28 H (8-23) mg/dl Creatinine 1.8 H (0.7-1.2) mg/dl POC Creatinine 1.9 H (0.7-1.2) mg/dl Glucose 238 H (70-105) mg/dL POC Glucose 239 H (70-105) mg/dL Calcium 7.9 L (8.6-10.4) mg/dl POC WB Ioniz Calcium 0.94 L (1.16-1.32) mmol/L Total Bilirubin 1.1 H (0.0-1.0) mg/dL AST 209 H (0-37) U/l ALT 147 H (0-40) U/l Alkaline Phosphatase 299 H (39-117) U/L Ammonia (16-60) umol/L C-Reactive Protein (0.0-0.8) mg/dl Prolactin (4.0-15.2) ng/ml Urine Protein (NEG) mg/dL Urine Glucose (UA) (NEG) mg/dL Urine Ketones (NEG) mg/dL Urine Occult Blood (<0.03) mg/dL Urine Urobilinogen (NEG) mg/dL Urine RBC (0-1) /hpf Hyaline Casts (0-2) /lpf 06/14/19 06/14/19 06/14/19 Range/Units 05:55 06:36 06:36 WBC (4.5-11.0) K/mcL RBC (4.50-5.90) M/mcL Hgb (13.5-16.5) g/dL Hct (41.0-55.0) % POC Hct (41.0-55.0) % Gran % (38.0-78.0) % Lymph % (Auto) (15.5-49.0) % Gran # (1.8-8.0) K/mcL Lymph # (Auto) (1.5-4.8) K/mcL [place] # (Auto) (0.1-0.9) K/mcL PT (11.9-14.5) sec INR (0.9-1.1) VBG Lactic Acid (0.5-2.0) mmol/L Anion Gap (8-16) POC BUN (8-23) mg/dl BUN (8-23) mg/dl Creatinine (0.7-1.2) mg/dl POC Creatinine (0.7-1.2) mg/dl Glucose (70-105) mg/dL POC Glucose (70-105) mg/dL Calcium (8.6-10.4) mg/dl POC WB Ioniz Calcium (1.16-1.32) mmol/L Total Bilirubin (0.0-1.0) mg/dL AST (0-37) U/l ALT (0-40) U/l Alkaline Phosphatase (39-117) U/L Ammonia (16-60) umol/L C-Reactive Protein 2.5 H (0.0-0.8) mg/dl Prolactin 46.7 H (4.0-15.2) ng/ml Urine Protein 30 A (NEG) mg/dL Urine Glucose (UA) 50 A (NEG) mg/dL Urine Ketones 5/tr A (NEG) mg/dL Urine Occult Blood 0.03 A (<0.03) mg/dL Urine Urobilinogen 4.0 A (NEG) mg/dL Urine RBC 9 H (0-1) /hpf Hyaline Casts 20 H (0-2) /lpf 06/14/19 06/14/19 06/14/19 Range/Units 06:36 09:26 11:03 WBC (4.5-11.0) K/mcL RBC (4.50-5.90) M/mcL Hgb (13.5-16.5) g/dL Hct (41.0-55.0) % POC Hct (41.0-55.0) % Gran % (38.0-78.0) % Lymph % (Auto) (15.5-49.0) % Gran # (1.8-8.0) K/mcL Lymph # (Auto) (1.5-4.8) K/mcL [place] # (Auto) (0.1-0.9) K/mcL PT 15.9 H (11.9-14.5) sec INR 1.3 H (0.9-1.1) VBG Lactic Acid 3.7 H (0.5-2.0) mmol/L Anion Gap (8-16) POC BUN (8-23) mg/dl BUN (8-23) mg/dl Creatinine (0.7-1.2) mg/dl POC Creatinine (0.7-1.2) mg/dl Glucose (70-105) mg/dL POC Glucose (70-105) mg/dL Calcium (8.6-10.4) mg/dl POC WB Ioniz Calcium (1.16-1.32) mmol/L Total Bilirubin (0.0-1.0) mg/dL AST (0-37) U/l ALT (0-40) U/l Alkaline Phosphatase (39-117) U/L Ammonia 11 L (16-60) umol/L C-Reactive Protein (0.0-0.8) mg/dl Prolactin (4.0-15.2) ng/ml Urine Protein (NEG) mg/dL Urine Glucose (UA) (NEG) mg/dL Urine Ketones (NEG) mg/dL Urine Occult Blood (<0.03) mg/dL Urine Urobilinogen (NEG) mg/dL Urine RBC (0-1) /hpf Hyaline Casts (0-2) /lpf Diabetes panel 06/14/19 Range/Units 05:00 Sodium 141 (133-145) mmol/L Potassium 3.7 (3.3-5.1) mmol/L Chloride 99 (96-108) mmol/L Carbon Dioxide 22 (22-30) mmol/L BUN 28 H (8-23) mg/dl Creatinine 1.8 H (0.7-1.2) mg/dl Glucose 238 H (70-105) mg/dL Calcium 7.9 L (8.6-10.4) mg/dl AST 209 H (0-37) U/l ALT 147 H (0-40) U/l Alkaline Phosphatase 299 H (39-117) U/L Total Protein 6.5 (5.9-8.4) gm/dL Albumin 3.8 (3.2-5.2) gm/dL Calcium panel 06/14/19 Range/Units 05:00 Calcium 7.9 L (8.6-10.4) mg/dl Albumin 3.8 (3.2-5.2) gm/dL Pituitary panel 06/14/19 06/14/19 Range/Units 05:00 06:36 Sodium 141 (133-145) mmol/L Potassium 3.7 (3.3-5.1) mmol/L Chloride 99 (96-108) mmol/L Carbon Dioxide 22 (22-30) mmol/L BUN 28 H (8-23) mg/dl Creatinine 1.8 H (0.7-1.2) mg/dl Glucose 238 H (70-105) mg/dL Calcium 7.9 L (8.6-10.4) mg/dl Prolactin 46.7 H (4.0-15.2) ng/ml Adrenal panel 06/14/19 Range/Units 05:00 Sodium 141 (133-145) mmol/L Potassium 3.7 (3.3-5.1) mmol/L Chloride 99 (96-108) mmol/L Carbon Dioxide 22 (22-30) mmol/L BUN 28 H (8-23) mg/dl Creatinine 1.8 H (0.7-1.2) mg/dl Glucose 238 H (70-105) mg/dL Calcium 7.9 L (8.6-10.4) mg/dl Total Bilirubin 1.1 H (0.0-1.0) mg/dL AST 209 H (0-37) U/l ALT 147 H (0-40) U/l Alkaline Phosphatase 299 H (39-117) U/L Total Protein 6.5 (5.9-8.4) gm/dL Albumin 3.8 (3.2-5.2) gm/dL All other labs normal. Assessment and Plan (1) Elevated liver enzymes Follow-up MRCP in the a.m. Recheck labs in the Status: Acute (2) Cholelithiasis and acute cholecystitis without obstruction If MRCP is negative patient will be stabilized and then considered for cholecystectomy If MRCP is positive we will have to make arrangements for him to have ERCP which will probably require transfer to a high level of care Status: Acute (3) Essential (primary) hypertension Status: Chronic (4) Nonrheumatic aortic valve stenosis Status: Chronic (5) Type 2 diabetes mellitus without complication Status: Chronic
[2019-06-14] MEDS: DOCUSATE SODIUM 100 MG CAPSULE PO SCH (20:41)
[2019-06-14] MEDS: SIMVASTATIN 20 MG TABLET PO SCH (20:41)
[2019-06-14] MEDS: FAMOTIDINE 20 MG TABLET PO SCH (20:41)
[2019-06-14] MEDS ORDERED: ACETAMINOPHEN 1,000 MG/100 ML BOTTLE IV ONE (23:01)
[2019-06-14 23:39] LABS: ALT/SGPT 174 U/l (0-40); AST/SGOT 273 U/l (0-37); Albumin 3.4 gm/dL (3.2-5.2); Albumin/Globulin Ratio 1.3 (1.0-2.3); Alkaline Phosphatase 220 U/L (39-117); Bilirubin,Direct 0.3 mg/dL (0.0-0.3); Blood Urea Nitrogen 23 mg/dl (8-23); Calcium 7.1 mg/dl (8.6-10.4); Carbon Dioxide 28 mmol/L (22-30); Chloride 102 mmol/L (96-108); Globulin 2.6 gm/dL (2.2-3.7); Glomerular Filtration Rate 35; Glucose 139 mg/dL (70-105); Lactate Dehydrogenase 413 U/L (94-250); Phosphorous 2.6 mg/dL (2.7-4.5); Triglycerides 70 mg/dl (<150); Uric Acid 7.7 mg/dL (2.5-8.0)
[2019-06-15] MEDS ORDERED: HYDROmorphone 2 MG/ML VIAL IV PRN ×2 (00:32→00:52)
[2019-06-15] MEDS ORDERED: HYDROmorphone 2 MG/ML VIAL ONE (00:59)
[2019-06-15] MEDS: 0.9 % SODIUM CHLORIDE 1,000 ML IV SCH (01:56)
[2019-06-15] MEDS: 0.9 % SODIUM CHLORIDE 10 ML SYRINGE IV SCH ×3 (05:05→20:43)
[2019-06-15] MEDS: PIPERACILLIN SODIUM/TAZOBACTAM 2.25 GM in DEXTROSE 5% IN WATER 50 ML IV SCH (05:06)
[2019-06-15 05:45] LABS: Hematocrit 34.6 % (41.0-55.0); Hemoglobin 11.1 g/dL (13.5-16.5); Mean Cell Volume 90.2 fL (80.0-100.0); Mean Corpuscular HGB Conc 32.2 g/dL (31.0-36.0); Mean Platelet Volume 9.1 fL (7.4-10.4); Platelet Count 174 K/mcL (140-440); RBC 3.84 M/mcL (4.50-5.90); Red Cell Distribution Width 14.2 % (11.5-14.5); WBC 13.1 K/mcL (4.5-11.0)
[2019-06-15 05:53] LABS: INR 1.5 (0.9-1.1); Prothrombin Time 17.7 sec (11.9-14.5)
[2019-06-15 06:26] LABS: ALT/SGPT 161 U/l (0-40); AST/SGOT 240 U/l (0-37); Albumin 3.3 gm/dL (3.2-5.2); Albumin/Globulin Ratio 1.3 (1.0-2.3); Alkaline Phosphatase 214 U/L (39-117); Bilirubin,Direct 0.3 mg/dL (0.0-0.3); Blood Urea Nitrogen 20 mg/dl (8-23); Calcium 7.3 mg/dl (8.6-10.4); Carbon Dioxide 27 mmol/L (22-30); Chloride 104 mmol/L (96-108); Globulin 2.6 gm/dL (2.2-3.7); Glomerular Filtration Rate 41; Glucose 121 mg/dL (70-105); Lactate Dehydrogenase 353 U/L (94-250); Triglycerides 76 mg/dl (<150); Uric Acid 7.3 mg/dL (2.5-8.0)
[2019-06-15 08:13] LABS: Band Neutrophils % 8 % (0-10); Eosinophils % (Manual) 1 % (0-7); Lymphocytes % 6 % (15-49); Monocytes % (Manual) 1 % (1-12); Platelet Estimate NORMAL (NORMAL); RBC Morphology NORMAL (NORMAL); Segmented Neutrophils % 84 % (38-78)
[2019-06-15] MEDS ORDERED: PNEUMOCOCCAL 23-VAL P-SAC VAC 0.5 ML SYRINGE IM ONE (10:00)
[2019-06-15] MEDS: INSULIN LISPRO 1 UNIT/0.01 ML UNIT SQ SCH ×4 (10:47→20:44)
[2019-06-15] MEDS: ENOXAPARIN 40 MG/0.4 ML SYRINGE SQ SCH ×2 (11:17→14:10)
[2019-06-15] MEDS: ACETAMINOPHEN 1,000 MG/100 ML BOTTLE IV PRN ×2 (12:09→22:20)
--- NOTE | 2019-06-15 12:34 | Magnetic Resonance Report ---
CLINICAL INFORMATION: Known cholelithiasis. Elevated LFTs. Evaluate for choledocholithiasis COMPARISON: Abdomen and pelvic CT 06/14/2019 TECHNIQUE: MRCP was performed using 3D FRFSE respiratory triggered and single-shot FSE thick slab technique. Axial T2 SSFSE and coronal SSFSE images were obtained through the upper abdomen as well. FINDINGS: Multiple small stones layer dependently within the gallbladder. The gallbladder is normal size and wall thickness without evidence of associated cholecystitis. The intrahepatic, common hepatic and common bile ducts are normal caliber: CBD is 4 mm. There is no evidence of choledocholithiasis. Pancreatic duct is also normal in contour and caliber with a diameter 2 mm. The liver, pancreas, both adrenal glands, spleen and aorta are normal in size configuration and signal intensity without focal lesion. 2.2 cm simple cyst inferior pole of the right kidney and 10 mm simple cyst mid left kidney appreciated - no significant renal lesions. No free air, free fluid or adenopathy. Moderate-sized hiatal hernia noted IMPRESSION: Cholelithiasis. No evidence of associated cholecystitis. Intrahepatic common bile and hepatic ducts all normal. There is no evidence of choledocholithiasis. Moderate hiatal hernia Interpreted and Authenticated by: Otto Dominique 06/15/19
[2019-06-15] MEDS: PIPERACILLIN SODIUM/TAZOBACTAM 3.375 GM in DEXTROSE 5% IN WATER 50 ML IV SCH ×3 (12:35→23:40)
[2019-06-15] MEDS: FINASTERIDE 5 MG TABLET PO SCH (14:10)
[2019-06-15] MEDS: DOCUSATE SODIUM 100 MG CAPSULE PO SCH ×2 (14:11→20:43)
[2019-06-15] MEDS: ASPIRIN 81 MG TAB.CHEW PO SCH (14:11)
[2019-06-15] MEDS: FAMOTIDINE 20 MG TABLET PO SCH ×2 (14:11→20:43)
[2019-06-15] MEDS: TAMSULOSIN 0.4 MG CAPSULE PO SCH (14:11)
--- NOTE | 2019-06-15 16:20 | General Surgery Progress Note ---
Subjective Patient reports: feels better, pain is less Narrative: Note initiated : 06/15/19 at 4:19 pm Service Date, if different from initiated Date: [] Patient: Parag Monk 89 y/o M admitted on 06/14/19 for Fall. Chief Complaint: [Patient states that he feels much better. He does not have any discomfort but he states that he is very weak. He has been afebrile. His lactate has decreased from 3.7-1. White blood count is decreased to 13.1. LFTs are still elevated including alkaline phosphatase and bilirubin is normal. Blood cultures are growing out gram-negative bacillus. MR DANIELLE does not show any common bile duct stones or obstruction. Findings suggest acute cholecystitis with cholelithiasis. Discussed with him and his the probability of proceeding with cholecystectomy on Thursday. This will allow him to stabilize hemodynamically prior to surgery. Echocardiogram will be ordered to check b aseline cardiac function.] Objective Temp Pulse Resp BP Pulse Ox 100.4 F H 91 H 16 143/65 96 06/15/19 12:55 06/15/19 07:58 06/15/19 12:55 06/15/19 12:55 06/15/19 13:02 - Additional Data Intake & Output - Last 24 hours: Intake & Output 06/13/19 06/14/19 06/15/19 06/16/19 05:59 05:59 05:59 05:59 Intake Total 4509 440 Output Total 2190 700 Balance 2319 -260 Weight 223 lb 218 lb 14.4 oz 218 lb 14.4 oz - General physical appearance well developed, well nourished, no distress - Eyes PERRL, normal ocular movement - ENT normal pinna, normal nares, normal mucosa, no hearing loss, no congestion - Neck no masses, no bruits, trachea midline, no lymphadenopathy, no venous distension - Respiratory normal expansion, normal respiratory effort, other (the patient has some upper airway coarse wheezes but peripherally his lungs are clear. Oxygenation is very good) - Cardiovascular Cardiovascular exam: Present: normal rate and rhythm, RRR, +S1, +S2. Absent: JVD, tachycardia - Abdomen non tender (no abdominal tenderness noted today), bowel sounds (present), surgical scars (none), masses (none) - Integumentary no rash, no growths, no abnormal pigmentation - Neurologic normal coordination, normal sensation - Musculoskeletal normal gait, normal posture - Psychiatric oriented to time, oriented to person, oriented to place, speech is normal, memory intact - Labs 06/15/19 04:03 06/15/19 04:03 Diabetes panel 06/14/19 06/15/19 Range/Units 22:35 04:03 Sodium 142 144 (133-145) mmol/L Potassium 3.9 3.5 (3.3-5.1) mmol/L Chloride 102 104 (96-108) mmol/L Carbon Dioxide 28 27 (22-30) mmol/L BUN 23 20 (8-23) mg/dl Creatinine 1.7 H 1.5 H (0.7-1.2) mg/dl Glucose 139 H 121 H (70-105) mg/dL Calcium 7.1 L 7.3 L (8.6-10.4) mg/dl AST 273 H 240 H (0-37) U/l ALT 174 H 161 H (0-40) U/l Alkaline Phosphatase 220 H 214 H (39-117) U/L Total Protein 6.0 5.9 (5.9-8.4) gm/dL Albumin 3.4 3.3 (3.2-5.2) gm/dL Triglycerides 70 76 (<150) mg/dl Calcium panel 06/14/19 06/15/19 Range/Units 22:35 04:03 Calcium 7.1 L 7.3 L (8.6-10.4) mg/dl Phosphorus 2.6 L 3.0 (2.7-4.5) mg/dL Albumin 3.4 3.3 (3.2-5.2) gm/dL Pituitary panel 06/14/19 06/15/19 Range/Units 22:35 04:03 Sodium 142 144 (133-145) mmol/L Potassium 3.9 3.5 (3.3-5.1) mmol/L Chloride 102 104 (96-108) mmol/L Carbon Dioxide 28 27 (22-30) mmol/L BUN 23 20 (8-23) mg/dl Creatinine 1.7 H 1.5 H (0.7-1.2) mg/dl Glucose 139 H 121 H (70-105) mg/dL Calcium 7.1 L 7.3 L (8.6-10.4) mg/dl Adrenal panel 06/14/19 06/15/19 Range/Units 22:35 04:03 Sodium 142 144 (133-145) mmol/L Potassium 3.9 3.5 (3.3-5.1) mmol/L Chloride 102 104 (96-108) mmol/L Carbon Dioxide 28 27 (22-30) mmol/L BUN 23 20 (8-23) mg/dl Creatinine 1.7 H 1.5 H (0.7-1.2) mg/dl Glucose 139 H 121 H (70-105) mg/dL Calcium 7.1 L 7.3 L (8.6-10.4) mg/dl Total Bilirubin 1.0 1.0 (0.0-1.0) mg/dL AST 273 H 240 H (0-37) U/l ALT 174 H 161 H (0-40) U/l Alkaline Phosphatase 220 H 214 H (39-117) U/L Total Protein 6.0 5.9 (5.9-8.4) gm/dL Albumin 3.4 3.3 (3.2-5.2) gm/dL Assessment and Plan (1) Elevated liver enzymes Status: Acute Assessment and plan: MRCP is normal Discussed need for cholecystectomy which will be performed potentially on Thursday Current Visit: Yes (2) Cholelithiasis and acute cholecystitis without obstruction Status: Acute Assessment and plan: As noted above Current Visit: Yes (3) Essential (primary) hypertension Status: Chronic Current Visit: No (4) Nonrheumatic aortic valve stenosis Status: Chronic Current Visit: No (5) Type 2 diabetes mellitus without complication Status: Chronic Current Visit: No (6) Bacteremia due to Gram-negative bacteria Status: Acute Current Visit: Yes - Time Spent With Patient Total time spent is greater than 50% in coordination of care (as documented) at patient's floor/unit and/or counseling patient:
--- NOTE | 2019-06-15 19:06 | Internal Med Progress Note ---
Medical - PN: Subj Patient information: Note initiated : 06/15/19 at 7:04 pm Service Date, if different from initiated Date: [] Patient: Parag Monk 89 y/o M admitted on 06/14/19 for Fall. Chief Complaint: [] Interval history: History obtained from patient and family. Patient states he felt fine going to bed last night and felt fine yesterday. In the middle night he up to urinate went to the bathroom came back to bed but was too weak to get into bed and had a controlled fall to the ground scraping his knees on the carpet. He denies any headache fever chills stomach pain diarrhea constipation. When a sked about chest pain he said he did have chest pain in the center before he went to bed while he was sitting in his chair that lasted for several hours and felt better after taking Monie-[place]. He was seen in minor care a month prior for the similar type of chest pain/epigastric pain had a EKG and troponin which were unremarkable. There was some initial concern about confusion but discussion with the family he is never been confused. Per EMS he is quite weak and it sounds like there might of been a low blood pressure obtained by EMS but I do not have the results. In the ED is found to have leukocytosis with elevated lactate level mildly elevated liver enzymes and elevated urine creatinine. Systolic blood pressure in the ER range from 97-124. He received several liters of IV fluids as well as vancomycin and Zosyn. CT abdomen pelvis was obtained which revealed atelectasis large right inguinal hernia and hiatal hernia. It did show cholelithiasis with some gallbladder wall thickening. Gallbladder ultrasound showed cholelithiasis with mild gallbladder wall thickening common bile duct was within normal limits, no mention of pericholecystic fluid. Case was discussed with Dr. Cheung who will review the abdominal imaging. Other than the possible gallbladder no obvious source of infection seen at this time. [id number] bacteremia with E. coli on initial identification. Sensory is pending. Repeat surveillance cultures pending. Procalcitonin 25. ID consulted. MRCP no evidence of biliary obstruction. Patient undergo cholecystectomy likely on Thursday. Echocardiogram awaited. Continue IV antibiotics. De-escalate based on culture sensitivities per ID. T-max 101.3. Lactic acid normalized, white count down from 19.8-13.1, creatinine improved to 1.5 from 1.7. - Constitutional Vitals: Vital Signs Temp Pulse Resp BP Pulse Ox 98.9 F 91 H 14 135/74 97 06/15/19 17:23 06/15/19 07:58 06/15/19 17:23 06/15/19 17:23 06/15/19 17:23 Period Temp Pulse Resp BP Sys/[place] Pulse Ox Last 24 Hr 98.4 F-101.3 F 70-91 14-24 113-166/63-82 94-97 Intake and Output 06/15/19 06/15/19 06/15/19 05:59 13:59 21:59 Intake Total 1800 200 240 Output Total 875 700 Balance 925 200 -460 Weight 218 lb 14.4 oz Patient Weight 06/16/19 05:59 Weight 218 lb 14.4 oz Intake & Output: Intake & Output 06/15/19 06/15/19 06/15/19 05:59 13:59 21:59 Intake Total 1800 200 240 Output Total 875 700 Balance 925 200 -460 Weight 218 lb 14.4 oz Intake: IV 1200 200 Sodium Chloride 0.9% 1,000 ml @ 1000 100 mls/hr IV .Q10H [facility] Rx#: [id number] OFIRMEV 1,000 mg In 100 ml @ 0 100 mls/hr IV .STK-MED [facility] Rx#: [id number] Zosyn 2.25 gm In Dextrose 5% in 50 50 Water 50 ml @ 100 mls/hr IV Q6H [facility] Rx#:[id number] Zosyn 3.375 gm In Dextrose 5% 50 in Water 50 ml @ 100 mls/hr IV Q6H [facility] Rx#:[id number] Oral 600 240 Output: Urine Catheter Amount 875 Void Amount 700 Other: Meal Lunch Percent of Meal Consumed 100% Feeding Ability Independent Urine Appearance Cloudy Clear Temp Probe Wesley Sediment Urine Color Dark Yellow Pale Temp Probe Wesley Straw Urine Odor Normal # Voids 1 General appearance: no acute distress Exam: Alert oriented Nonlabored breathing No telemetry events Nondistended nontender abdomen No lymphedema Medical - PN: Obj Da - Labs CBC & Chem 7: 06/15/19 04:03 06/15/19 04:03 Labs: Abnormal Lab Results 06/15/19 06/15/19 06/15/19 04:03 04:03 04:03 WBC 13.1 H RBC 3.84 L Hgb 11.1 L Hct 34.6 L POC Hct Gran % Lymph % (Auto) Gran # Lymph # (Auto) [place] # (Auto) Seg Neutrophils % 84 H Lymphocytes % 6 L PT 17.7 H INR 1.5 H VBG Lactic Acid Anion Gap POC BUN BUN Creatinine 1.5 H POC Creatinine Glucose 121 H POC Glucose Calcium 7.3 L POC WB Ioniz Calcium Phosphorus Magnesium Total Bilirubin GGT 229 H AST 240 H ALT 161 H Alkaline Phosphatase 214 H Ammonia Lactate Dehydrogenase 353 H C-Reactive Protein Prolactin Urine Protein Urine Glucose (UA) Urine Ketones Urine Occult Blood Urine Urobilinogen Urine RBC Hyaline Casts 06/14/19 06/14/19 06/14/19 22:35 11:03 09:26 WBC RBC Hgb Hct POC Hct Gran % Lymph % (Auto) Gran # Lymph # (Auto) [place] # (Auto) Seg Neutrophils % Lymphocytes % PT INR VBG Lactic Acid 3.7 H Anion Gap POC BUN BUN Creatinine 1.7 H POC Creatinine Glucose 139 H POC Glucose Calcium 7.1 L POC WB Ioniz Calcium Phosphorus 2.6 L Magnesium 1.2 L Total Bilirubin GGT 236 H AST 273 H ALT 174 H Alkaline Phosphatase 220 H Ammonia 11 L Lactate Dehydrogenase 413 H C-Reactive Protein Prolactin Urine Protein Urine Glucose (UA) Urine Ketones Urine Occult Blood Urine Urobilinogen Urine RBC Hyaline Casts 06/14/19 06/14/19 06/14/19 06:36 06:36 06:36 WBC RBC Hgb Hct POC Hct Gran % Lymph % (Auto) Gran # Lymph # (Auto) [place] # (Auto) Seg Neutrophils % Lymphocytes % PT 15.9 H INR 1.3 H VBG Lactic Acid Anion Gap POC BUN BUN Creatinine POC Creatinine Glucose POC Glucose Calcium POC WB Ioniz Calcium Phosphorus Magnesium Total Bilirubin GGT AST ALT Alkaline Phosphatase Ammonia Lactate Dehydrogenase C-Reactive Protein 2.5 H Prolactin 46.7 H Urine Protein Urine Glucose (UA) Urine Ketones Urine Occult Blood Urine Urobilinogen Urine RBC Hyaline Casts 06/14/19 06/14/19 06/14/19 05:55 05:00 05:00 WBC RBC Hgb Hct POC Hct 39.0 L Gran % Lymph % (Auto) Gran # Lymph # (Auto) [place] # (Auto) Seg Neutrophils % Lymphocytes % PT INR VBG Lactic Acid 5.4 H* Anion Gap 20.0 H POC BUN 28 H BUN 28 H Creatinine 1.8 H POC Creatinine 1.9 H Glucose 238 H POC Glucose 239 H Calcium 7.9 L POC WB Ioniz Calcium 0.94 L Phosphorus Magnesium Total Bilirubin 1.1 H GGT AST 209 H ALT 147 H Alkaline Phosphatase 299 H Ammonia Lactate Dehydrogenase C-Reactive Protein Prolactin Urine Protein 30 A Urine Glucose (UA) 50 A Urine Ketones 5/tr A Urine Occult Blood 0.03 A Urine Urobilinogen 4.0 A Urine RBC 9 H Hyaline Casts 20 H 06/14/19 05:00 WBC 19.8 H RBC 4.28 L Hgb 12.4 L Hct 38.1 L POC Hct Gran % 92.1 H Lymph % (Auto) 2.2 L Gran # 18.3 H Lymph # (Auto) 0.4 L [place] # (Auto) 1.1 H Seg Neutrophils % Lymphocytes % PT INR VBG Lactic Acid Anion Gap POC BUN BUN Creatinine POC Creatinine Glucose POC Glucose Calcium POC WB Ioniz Calcium Phosphorus Magnesium Total Bilirubin GGT AST ALT Alkaline Phosphatase Ammonia Lactate Dehydrogenase C-Reactive Protein Prolactin Urine Protein Urine Glucose (UA) Urine Ketones Urine Occult Blood Urine Urobilinogen Urine RBC Hyaline Casts Meds: Medications Albuterol/Ipratropium (Duoneb) 3 ml NEB Q4HP PRN PRN Reason: Shortness Of Breath Aspirin (Aspirin) 81 mg PO DAILY [facility] Last Admin: 06/15/19 14:11 Dose: 81 mg Documented by: Dextrose (Dextrose 50%) 0 ml IV UD PRN PRN Reason: Hypoglycemia Diagnostic Test (Pha) (Accu-Chek) 1 each FS ACHS [facility] Last Admin: 06/15/19 17:56 Dose: 1 each Documented by: Docusate Sodium (Colace) 100 mg PO BID [facility] Last Admin: 06/15/19 14:11 Dose: 100 mg Documented by: Enoxaparin Sodium (Lovenox) 40 mg SQ DAILY [facility] Last Admin: 06/15/19 14:10 Dose: 40 mg Documented by: Famotidine (Pepcid) 20 mg PO BID [facility] Last Admin: 06/15/19 14:11 Dose: Not Given Documented by: Finasteride (Proscar) 5 mg PO QDAY [facility] Last Admin: 06/15/19 14:10 Dose: 5 mg Documented by: Glucose (Insta-Glucose) 15 gm PO PRN PRN PRN Reason: Hypoglycemia Hydromorphone HCl (Dilaudid) 0.25 mg IV Q4HP PRN; Protocol PRN Reason: Per Pain Protocol Potassium Chloride 40 meq/ (Dextrose) 520 mls @ 130 mls/hr IV UD PRN PRN Reason: Potassium < 3 Magnesium Sulfate (Magnesium Sulfate) 2 gm in 50 mls @ 50 mls/hr IV UD PRN PRN Reason: Magnesium </= 1.6 Last Infusion: 06/15/19 01:42 Dose: Infused Documented by: Acetaminophen (Ofirmev) 1,000 mg in 100 mls @ 200 mls/hr IV Q8HP PRN; Protocol PRN Reason: PAIN/FEVER > 101 Last Infusion: 06/15/19 13:00 Dose: Infused Documented by: Piperacillin Sod/Tazobactam (Sod 3.375 gm/ Dextrose) 50 mls @ 100 mls/hr IV Q6H [facility]; Protocol Last Admin: 06/15/19 18:46 Dose: 100 mls/hr Documented by: Insulin Human Lispro (Humalog) 0 unit SQ ACHS [facility]; Protocol Last Admin: 06/15/19 17:56 Dose: Not Given Documented by: Lactulose (Cephulac) 10 gm PO DAILYP PRN PRN Reason: Constipation Ondansetron HCl (Zofran) 4 mg IV Q4HP PRN PRN Reason: Nausea And Vomiting Polyethylene Glycol (Miralax) 17 gm PO DAILYP PRN PRN Reason: Constipation Potassium Chloride (Kdur) 40 meq PO UD PRN PRN Reason: Potssium is 3-3.5 Potassium Chloride (Kdur) 40 meq PO UD PRN PRN Reason: Potassium < 3 Senna (Senokot) 2 tab PO HSP PRN PRN Reason: Constipation Simvastatin (Zocor) 20 mg PO HS [facility] Last Admin: 06/14/19 20:41 Dose: 20 mg Documented by: Sodium Chloride (Saline Flush) 10 ml IV Q8 [facility] Last Admin: 06/15/19 14:12 Dose: 10 ml Documented by: Tamsulosin HCl (Flomax) 0.8 mg PO QDAY [facility] Last Admin: 06/15/19 14:11 Dose: 0.8 mg Documented by: Medical - PN: A/P - Time Spent With Patient Total time spent is greater than 50% in coordination of care (as documented) at patient's floor/unit and/or counseling patient: 25 - 35 minutes (1) E coli bacteremia Status: Acute Assessment and plan: * E. coli bacteremia-likely source acute cholecystitis. Surveillance cultures pending. On antibiotic coverage. Await sensitivities. ID on board. * Acute cholecystitis will undergo cholecystectomy on Thursday. Surgery on board. * Severe sepsis with leukocytosis/evidence of endorgan dysfunction including CARLOS. Clinically improving. White count down from 19.8-13.1 * CARLOS-improving white count. Likely secondary to sepsis endorgan dysfunction * Lactic acidosis clinically resolved. Down from 5.4-1 * Transaminitis secondary to acute cholecystitis * DM type II continue basal panel insulin * History of BPH follows up with Dr. Poon * History of hypertension hold antihypertensive until sepsis resolved * Full code * Prophylaxis Lovenox Plan * Antibiotic coverage and de-escalate based on sensitivities * ID consult * Monitor renal function * Pre-existing well condition management home meds except for antihypertensives * PT OT Current Visit: Yes Medical - PN: Qual - Stroke Symptom Onset Unknown: No - VTE Deep Vein Thrombosis/Pulmonary Embolism Present on Admission: No
[2019-06-15] MEDS: SIMVASTATIN 20 MG TABLET PO SCH (20:46)
[2019-06-16] MEDS: PIPERACILLIN SODIUM/TAZOBACTAM 3.375 GM in DEXTROSE 5% IN WATER 50 ML IV SCH ×3 (05:31→17:22)
[2019-06-16] MEDS: 0.9 % SODIUM CHLORIDE 10 ML SYRINGE IV SCH ×4 (05:32→20:58)
[2019-06-16 05:39] LABS: Basophils # (Auto) 0 K/mcL (0.0-0.3); Basophils % (Auto) 0.3 % (0.0-2.0); Eosinophils # (Auto) 0.2 K/mcL (0.0-0.7); Eosinophils % (Auto) 1.7 % (0.0-7.0); Granulocytes % (Auto) 84.5 % (38.0-78.0); Hematocrit 33.9 % (41.0-55.0); Hemoglobin 11.1 g/dL (13.5-16.5); Lymphocytes # (Auto) 0.6 K/mcL (1.5-4.8); Lymphocytes % (Auto) 7.2 % (15.5-49.0); Mean Cell Volume 89.4 fL (80.0-100.0); Mean Corpuscular HGB Conc 32.6 g/dL (31.0-36.0); Mean Platelet Volume 9.1 fL (7.4-10.4); Monocytes # (Auto) 0.6 K/mcL (0.1-0.9); Monocytes % (Auto) 6.3 % (1.0-12.0); Platelet Count 170 K/mcL (140-440); RBC 3.79 M/mcL (4.50-5.90); Red Cell Distribution Width 14.6 % (11.5-14.5); WBC 8.9 K/mcL (4.5-11.0)
[2019-06-16 06:07] LABS: ALT/SGPT 116 U/l (0-40); AST/SGOT 122 U/l (0-37); Albumin/Globulin Ratio 1.1 (1.0-2.3); Alkaline Phosphatase 178 U/L (39-117); Bilirubin,Direct 0.3 mg/dL (0.0-0.3); Bilirubin,Total 0.7 mg/dL (0.0-1.0); Blood Urea Nitrogen 15 mg/dl (8-23); Calcium 7.4 mg/dl (8.6-10.4); Carbon Dioxide 28 mmol/L (22-30); Chloride 103 mmol/L (96-108); Globulin 2.7 gm/dL (2.2-3.7); Glomerular Filtration Rate 49; Glucose 116 mg/dL (70-105); Lactate Dehydrogenase 270 U/L (94-250); Phosphorous 3.1 mg/dL (2.7-4.5); Triglycerides 145 mg/dl (<150); Uric Acid 4.7 mg/dL (2.5-8.0)
[2019-06-16] MEDS: INSULIN LISPRO 1 UNIT/0.01 ML UNIT SQ SCH ×4 (07:40→20:48)
[2019-06-16] MEDS: IPRATROPIUM/ALBUTEROL 3 ML AMPUL.NEB NEB PRN ×2 (07:58→17:25)
[2019-06-16] MEDS: TAMSULOSIN 0.4 MG CAPSULE PO SCH (09:05)
[2019-06-16] MEDS: FAMOTIDINE 20 MG TABLET PO SCH ×2 (09:05→20:55)
[2019-06-16] MEDS: ASPIRIN 81 MG TAB.CHEW PO SCH (09:05)
[2019-06-16] MEDS: ENOXAPARIN 40 MG/0.4 ML SYRINGE SQ SCH (09:05)
[2019-06-16] MEDS: DOCUSATE SODIUM 100 MG CAPSULE PO SCH ×2 (09:06→20:55)
[2019-06-16] MEDS: FINASTERIDE 5 MG TABLET PO SCH (09:06)
--- NOTE | 2019-06-16 09:48 | Internal Med Progress Note ---
Medical - PN: Subj Patient information: Note initiated : 06/16/19 at 9:45 am Service Date, if different from initiated Date: [] Patient: Parag Monk 89 y/o M admitted on 06/14/19 for Fall. Chief Complaint: [] Interval history: History obtained from patient and family. Patient states he felt fine going to bed last night and felt fine yesterday. In the middle night he up to urinate went to the bathroom came back to bed but was too weak to get into bed and had a controlled fall to the ground scraping his knees on the carpet. He denies any headache fever chills stomach pain diarrhea constipation. When a sked about chest pain he said he did have chest pain in the center before he went to bed while he was sitting in his chair that lasted for several hours and felt better after taking Monie-[place]rof[place]. He was seen in minor care a month prior for the similar type of chest pain/epigastric pain had a EKG and troponin which were unremarkable. There was some initial concern about confusion but discussion with the family he is never been confused. Per EMS he is quite weak and it sounds like there might of been a low blood pressure obtained by EMS but I do not have the results. In the ED is found to have leukocytosis with elevated lactate level mildly elevated liver enzymes and elevated urine creatinine. Systolic blood pressure in the ER range from 97-124. He received several liters of IV fluids as well as vancomycin and Zosyn. CT abdomen pelvis was obtained which revealed atelectasis large right inguinal hernia and hiatal hernia. It did show cholelithiasis with some gallbladder wall thickening. Gallbladder ultrasound showed cholelithiasis with mild gallbladder wall thickening common bile duct was within normal limits, no mention of pericholecystic fluid. Case was discussed with Dr. Cheung who will review the abdominal imaging. Other than the possible gallbladder no obvious source of infection seen at this time. [id number] bacteremia with E. coli on initial identification. Sensory is pending. Repeat surveillance cultures pending. Procalcitonin 25. ID consulted. MRCP no evidence of biliary obstruction. Patient undergo cholecystectomy likely on Thursday. Echocardiogram awaited. Continue IV antibiotics. De-escalate based on culture sensitivities per ID. T-max 101.3. Lactic acid normalized, white count down from 19.8-13.1, creatinine improved to 1.5 from 1.7. 06/16-patient doing remarkably better. No overnight events during fever chills. White count downtrending. LFTs improving. Due for surgery in 24 hours. - Constitutional Vitals: Vital Signs Temp Pulse Resp BP Pulse Ox 97.6 F 78 18 125/84 96 06/16/19 08:02 06/16/19 08:04 06/16/19 08:04 06/16/19 08:02 06/16/19 08:08 Period Temp Pulse Resp BP Sys/[place] Pulse Ox Last 24 Hr 97.6 F-101.3 F 78 14-22 121-153/62-84 93-97 Intake and Output 06/15/19 06/16/19 06/16/19 21:59 05:59 13:59 Intake Total 460 221 3077 Output Total 700 3 Balance -280 821 5900 Weight 219 lb 4 oz Intake & Output: Intake & Output 06/15/19 06/16/19 06/16/19 21:59 05:59 13:59 Intake Total 915 441 1734 Output Total 700 3 Balance -403 704 7842 Weight 219 lb 4 oz Intake: IV 50 150 1050 Sodium Chloride 0.9% 1,000 ml @ 1000 100 mls/hr IV .Q10H [facility] Rx#: [id number] Zosyn 3.375 gm In Dextrose 5% 50 50 50 in Water 50 ml @ 100 mls/hr IV Q6H [facility] Rx#:[id number] Oral 240 300 Output: Void Amount 700 # of times incontinent of urine 3 Other: Meal Lunch Percent of Meal Consumed 100% Feeding Ability Independent Urine Appearance Clear Urine Color Pale Urine Odor Normal # Voids 1 General appearance: no acute distress Exam: Alert oriented Nondistended abdomen Nonlabored breathing No telemetry events Medical - PN: Obj Da - Labs CBC & Chem 7: 06/16/19 03:48 06/16/19 03:48 Labs: Abnormal Lab Results 06/16/19 06/16/19 06/15/19 03:48 03:48 04:03 WBC RBC 3.79 L Hgb 11.1 L Hct 33.9 L POC Hct RDW 14.6 H Gran % 84.5 H Lymph % (Auto) 7.2 L Gran # Lymph # (Auto) 0.6 L [place] # (Auto) Seg Neutrophils % Lymphocytes % PT 17.7 H INR 1.5 H VBG Lactic Acid Anion Gap POC BUN BUN Creatinine 1.3 H POC Creatinine Glucose 116 H POC Glucose Calcium 7.4 L POC WB Ioniz Calcium Phosphorus Magnesium Total Bilirubin GGT 196 H AST 122 H ALT 116 H Alkaline Phosphatase 178 H Ammonia Lactate Dehydrogenase 270 H C-Reactive Protein Total Protein 5.7 L Albumin 3.0 L Prolactin Urine Protein Urine Glucose (UA) Urine Ketones Urine Occult Blood Urine Urobilinogen Urine RBC Hyaline Casts 06/15/19 06/15/19 06/14/19 04:03 04:03 22:35 WBC 13.1 H RBC 3.84 L Hgb 11.1 L Hct 34.6 L POC Hct RDW Gran % Lymph % (Auto) Gran # Lymph # (Auto) [place] # (Auto) Seg Neutrophils % 84 H Lymphocytes % 6 L PT INR VBG Lactic Acid Anion Gap POC BUN BUN Creatinine 1.5 H 1.7 H POC Creatinine Glucose 121 H 139 H POC Glucose Calcium 7.3 L 7.1 L POC WB Ioniz Calcium Phosphorus 2.6 L Magnesium 1.2 L Total Bilirubin GGT 229 H 236 H AST 240 H 273 H ALT 161 H 174 H Alkaline Phosphatase 214 H 220 H Ammonia Lactate Dehydrogenase 353 H 413 H C-Reactive Protein Total Protein Albumin Prolactin Urine Protein Urine Glucose (UA) Urine Ketones Urine Occult Blood Urine Urobilinogen Urine RBC Hyaline Casts 06/14/19 06/14/19 06/14/19 11:03 09:26 06:36 WBC RBC Hgb Hct POC Hct RDW Gran % Lymph % (Auto) Gran # Lymph # (Auto) [place] # (Auto) Seg Neutrophils % Lymphocytes % PT 15.9 H INR 1.3 H VBG Lactic Acid 3.7 H Anion Gap POC BUN BUN Creatinine POC Creatinine Glucose POC Glucose Calcium POC WB Ioniz Calcium Phosphorus Magnesium Total Bilirubin GGT AST ALT Alkaline Phosphatase Ammonia 11 L Lactate Dehydrogenase C-Reactive Protein Total Protein Albumin Prolactin Urine Protein Urine Glucose (UA) Urine Ketones Urine Occult Blood Urine Urobilinogen Urine RBC Hyaline Casts 06/14/19 06/14/19 06/14/19 06:36 06:36 05:55 WBC RBC Hgb Hct POC Hct RDW Gran % Lymph % (Auto) Gran # Lymph # (Auto) [place] # (Auto) Seg Neutrophils % Lymphocytes % PT INR VBG Lactic Acid Anion Gap POC BUN BUN Creatinine POC Creatinine Glucose POC Glucose Calcium POC WB Ioniz Calcium Phosphorus Magnesium Total Bilirubin GGT AST ALT Alkaline Phosphatase Ammonia Lactate Dehydrogenase C-Reactive Protein 2.5 H Total Protein Albumin Prolactin 46.7 H Urine Protein 30 A Urine Glucose (UA) 50 A Urine Ketones 5/tr A Urine Occult Blood 0.03 A Urine Urobilinogen 4.0 A Urine RBC 9 H Hyaline Casts 20 H 06/14/19 06/14/19 06/14/19 05:00 05:00 05:00 WBC 19.8 H RBC 4.28 L Hgb 12.4 L Hct 38.1 L POC Hct 39.0 L RDW Gran % 92.1 H Lymph % (Auto) 2.2 L Gran # 18.3 H Lymph # (Auto) 0.4 L [place] # (Auto) 1.1 H Seg Neutrophils % Lymphocytes % PT INR VBG Lactic Acid 5.4 H* Anion Gap 20.0 H POC BUN 28 H BUN 28 H Creatinine 1.8 H POC Creatinine 1.9 H Glucose 238 H POC Glucose 239 H Calcium 7.9 L POC WB Ioniz Calcium 0.94 L Phosphorus Magnesium Total Bilirubin 1.1 H GGT AST 209 H ALT 147 H Alkaline Phosphatase 299 H Ammonia Lactate Dehydrogenase C-Reactive Protein Total Protein Albumin Prolactin Urine Protein Urine Glucose (UA) Urine Ketones Urine Occult Blood Urine Urobilinogen Urine RBC Hyaline Casts Meds: Medications Albuterol/Ipratropium (Duoneb) 3 ml NEB Q4HP PRN PRN Reason: Shortness Of Breath Last Admin: 06/16/19 07:58 Dose: 3 ml Documented by: Aspirin (Aspirin) 81 mg PO DAILY [facility] Last Admin: 06/16/19 09:05 Dose: 81 mg Documented by: Dextrose (Dextrose 50%) 0 ml IV UD PRN PRN Reason: Hypoglycemia Diagnostic Test (Pha) (Accu-Chek) 1 each FS ACHS [facility] Last Admin: 06/16/19 07:39 Dose: 1 each Documented by: Docusate Sodium (Colace) 100 mg PO BID [facility] Last Admin: 06/16/19 09:06 Dose: Not Given Documented by: Enoxaparin Sodium (Lovenox) 40 mg SQ DAILY [facility] Last Admin: 06/16/19 09:05 Dose: 40 mg Documented by: Famotidine (Pepcid) 20 mg PO BID [facility] Last Admin: 06/16/19 09:05 Dose: 20 mg Documented by: Finasteride (Proscar) 5 mg PO QDAY [facility] Last Admin: 06/16/19 09:06 Dose: 5 mg Documented by: Glucose (Insta-Glucose) 15 gm PO PRN PRN PRN Reason: Hypoglycemia Hydromorphone HCl (Dilaudid) 0.25 mg IV Q4HP PRN; Protocol PRN Reason: Per Pain Protocol Potassium Chloride 40 meq/ (Dextrose) 520 mls @ 130 mls/hr IV UD PRN PRN Reason: Potassium < 3 Magnesium Sulfate (Magnesium Sulfate) 2 gm in 50 mls @ 50 mls/hr IV UD PRN PRN Reason: Magnesium </= 1.6 Last Infusion: 06/15/19 01:42 Dose: Infused Documented by: Acetaminophen (Ofirmev) 1,000 mg in 100 mls @ 200 mls/hr IV Q8HP PRN; Protocol PRN Reason: PAIN/FEVER > 101 Last Infusion: 06/15/19 23:00 Dose: Infused Documented by: Piperacillin Sod/Tazobactam (Sod 3.375 gm/ Dextrose) 50 mls @ 100 mls/hr IV Q6H [facility]; Protocol Last Infusion: 06/16/19 06:01 Dose: Infused Documented by: Insulin Human Lispro (Humalog) 0 unit SQ [facility]; Protocol Last Admin: 06/16/19 07:40 Dose: Not Given Documented by: Lactulose (Cephulac) 10 gm PO DAILYP PRN PRN Reason: Constipation Ondansetron HCl (Zofran) 4 mg IV Q4HP PRN PRN Reason: Nausea And Vomiting Pneumococcal Polyvalent Vaccine (Pneumovax 23) 0.5 ml IM .ONCE ONE Stop: 06/16/19 10:01 Last Admin: 06/16/19 09:04 Dose: 0.5 ml Documented by: Polyethylene Glycol (Miralax) 17 gm PO DAILYP PRN PRN Reason: Constipation Potassium Chloride (Kdur) 40 meq PO UD PRN PRN Reason: Potssium is 3-3.5 Potassium Chloride (Kdur) 40 meq PO UD PRN PRN Reason: Potassium < 3 Senna (Senokot) 2 tab PO HSP PRN PRN Reason: Constipation Simvastatin (Zocor) 20 mg PO HS [facility] Last Admin: 06/15/19 20:46 Dose: 20 mg Documented by: Sodium Chloride (Saline Flush) 10 ml IV Q8 [facility] Last Admin: 06/16/19 05:32 Dose: 10 ml Documented by: Tamsulosin HCl (Flomax) 0.8 mg PO QDAY [facility] Last Admin: 06/16/19 09:05 Dose: 0.8 mg Documented by: Medical - PN: A/P - Time Spent With Patient Total time spent is greater than 50% in coordination of care (as documented) at patient's floor/unit and/or counseling patient: 25 - 35 minutes (1) E coli bacteremia Status: Acute Assessment and plan: * E. coli bacteremia-likely source acute cholecystitis. Surveillance cultures negative so far. Continuing antibiotic coverage. Await sensitivities. Echocardiogram unremarkable * Acute cholecystitis will undergo cholecystectomy on Thursday. Surgery on board. * Severe sepsis with leukocytosis/evidence of endorgan dysfunction including CARLOS. Clinically resolved. Lactate normalized. * CARLOS-improving white count. Likely secondary to sepsis endorgan dysfunction. Creatinine down from 1.8-1.3 * Transaminitis secondary to acute cholecystitis * DM type II continue basal panel insulin * History of BPH follows up with Dr. Poon * History of hypertension-currently stable with systolics around 120s * Full code * Prophylaxis Lovenox Plan * Continue antibiotics * Surgery in 24 hours * ID consult * Monitor renal function/avoid nephrotoxins * Pre-existing medical condition management home meds * PT OT Current Visit: Yes Medical - PN: Qual - Stroke Symptom Onset Unknown: No - VTE Deep Vein Thrombosis/Pulmonary Embolism Present on Admission: No
[2019-06-16] MEDS ORDERED: PNEUMOCOCCAL 23-VAL P-SAC VAC 0.5 ML SYRINGE IM ONE (10:00)
--- NOTE | 2019-06-16 10:05 | XRay Report ---
CLINICAL INFORMATION: wheezing/shortness of breath COMPARISON: 06/14/2019 FINDINGS: Moderate hiatal hernia again noted. Cardiomediastinal silhouette and pulmonary vessels are, otherwise, normal. Minimal patchy airspace disease, likely atelectasis/scar, in both mid and lower lungs is unchanged from CT. No definite infiltrate or no effusion IMPRESSION: Mild bibasilar scarring or atelectasis. No definite infiltrate. Moderate hiatal hernia - stable Interpreted and Authenticated by: Otto Dominique 06/16/19
--- NOTE | 2019-06-16 16:52 | General Surgery Progress Note ---
Subjective Patient reports: feels better, pain is less, no flatus, nausea, afebrile Narrative: Note initiated : 06/16/19 at 4:52 pm Service Date, if different from initiated Date: [] Patient: Parag Monk 89 y/o M admitted on 06/14/19 for Fall. Chief Complaint: [Patient continues to feel better. He is afebrile. He does have some nausea and mild epigastric discomfort. White blood count 8.9, hemoglobin 11.1, hematocrit 33.9, urine 15, creatinine 1.3, LFTs remain elevated bilirubin is 0.7. Echocardiogram looks fairly good with ejection fraction of 50%. Discussed with patient and his earlier today the need to proceed with surgery in the morning.] Objective Temp Pulse Resp BP Pulse Ox 98.6 F 78 18 158/84 93 06/16/19 16:14 06/16/19 08:04 06/16/19 16:14 06/16/19 16:14 06/16/19 16:14 - Additional Data Intake & Output - Last 24 hours: Intake & Output 06/14/19 06/15/19 06/16/19 06/17/19 05:59 05:59 05:59 05:59 Intake Total 4509 940 2540 Output Total 2190 703 177 Balance 2319 237 2363 Weight 223 lb 218 lb 14.4 oz 219 lb 4 oz - General physical appearance well developed, well nourished, no distress, other (mild epigastric discomfort) - Eyes PERRL, normal ocular movement - ENT normal pinna, normal nares, normal mucosa, no congestion, decreased hearing - Neck no masses, no bruits, trachea midline, no lymphadenopathy, no venous distension - Respiratory normal expansion, normal respiratory effort, clear to auscultation - Cardiovascular Cardiovascular exam: Present: normal rate and rhythm, +S1, +S2, tachycardia. Absent: JVD, RRR - Abdomen tender (mild epigastric tenderness), bowel sounds (present), surgical scars (none), masses (none) - Integumentary no rash, no growths, no abnormal pigmentation - Neurologic normal coordination, normal sensation - Musculoskeletal normal gait, normal posture - Psychiatric oriented to time, oriented to person, oriented to place, speech is normal, memory intact - Labs 06/16/19 03:48 06/16/19 03:48 Diabetes panel 06/16/19 Range/Units 03:48 Sodium 141 (133-145) mmol/L Potassium 3.6 (3.3-5.1) mmol/L Chloride 103 (96-108) mmol/L Carbon Dioxide 28 (22-30) mmol/L BUN 15 (8-23) mg/dl Creatinine 1.3 H (0.7-1.2) mg/dl Glucose 116 H (70-105) mg/dL Calcium 7.4 L (8.6-10.4) mg/dl AST 122 H (0-37) U/l ALT 116 H (0-40) U/l Alkaline Phosphatase 178 H (39-117) U/L Total Protein 5.7 L (5.9-8.4) gm/dL Albumin 3.0 L (3.2-5.2) gm/dL Triglycerides 145 (<150) mg/dl Calcium panel 06/16/19 Range/Units 03:48 Calcium 7.4 L (8.6-10.4) mg/dl Phosphorus 3.1 (2.7-4.5) mg/dL Albumin 3.0 L (3.2-5.2) gm/dL Pituitary panel 06/16/19 Range/Units 03:48 Sodium 141 (133-145) mmol/L Potassium 3.6 (3.3-5.1) mmol/L Chloride 103 (96-108) mmol/L Carbon Dioxide 28 (22-30) mmol/L BUN 15 (8-23) mg/dl Creatinine 1.3 H (0.7-1.2) mg/dl Glucose 116 H (70-105) mg/dL Calcium 7.4 L (8.6-10.4) mg/dl Adrenal panel 06/16/19 Range/Units 03:48 Sodium 141 (133-145) mmol/L Potassium 3.6 (3.3-5.1) mmol/L Chloride 103 (96-108) mmol/L Carbon Dioxide 28 (22-30) mmol/L BUN 15 (8-23) mg/dl Creatinine 1.3 H (0.7-1.2) mg/dl Glucose 116 H (70-105) mg/dL Calcium 7.4 L (8.6-10.4) mg/dl Total Bilirubin 0.7 (0.0-1.0) mg/dL AST 122 H (0-37) U/l ALT 116 H (0-40) U/l Alkaline Phosphatase 178 H (39-117) U/L Total Protein 5.7 L (5.9-8.4) gm/dL Albumin 3.0 L (3.2-5.2) gm/dL Assessment and Plan (1) Elevated liver enzymes Status: Acute Assessment and plan: MRCP is normal Discussed need for cholecystectomy which will be performed potentially on Thursday Current Visit: Yes (2) Cholelithiasis and acute cholecystitis without obstruction Status: Acute Assessment and plan: As noted above Current Visit: Yes (3) Essential (primary) hypertension Status: Chronic Current Visit: No (4) Nonrheumatic aortic valve stenosis Status: Chronic Current Visit: No (5) Type 2 diabetes mellitus without complication Status: Chronic Current Visit: No (6) Bacteremia due to Gram-negative bacteria Status: Acute Current Visit: Yes - Time Spent With Patient Total time spent is greater than 50% in coordination of care (as documented) at patient's floor/unit and/or counseling patient:
[2019-06-16] MEDS: SIMVASTATIN 20 MG TABLET PO SCH (20:55)
[2019-06-17] MEDS: PIPERACILLIN SODIUM/TAZOBACTAM 3.375 GM in DEXTROSE 5% IN WATER 50 ML IV SCH ×4 (00:17→17:34)
[2019-06-17] MEDS: IPRATROPIUM/ALBUTEROL 3 ML AMPUL.NEB NEB PRN (04:02)
[2019-06-17 05:25] LABS: Basophils # (Auto) 0 K/mcL (0.0-0.3); Basophils % (Auto) 0.4 % (0.0-2.0); Eosinophils # (Auto) 0.1 K/mcL (0.0-0.7); Eosinophils % (Auto) 1.4 % (0.0-7.0); Granulocytes % (Auto) 75.9 % (38.0-78.0); Hematocrit 36.1 % (41.0-55.0); Hemoglobin 11.8 g/dL (13.5-16.5); Lymphocytes # (Auto) 1.1 K/mcL (1.5-4.8); Lymphocytes % (Auto) 14.5 % (15.5-49.0); Mean Cell Volume 89.8 fL (80.0-100.0); Mean Corpuscular HGB Conc 32.6 g/dL (31.0-36.0); Mean Platelet Volume 8.9 fL (7.4-10.4); Monocytes # (Auto) 0.6 K/mcL (0.1-0.9); Monocytes % (Auto) 7.8 % (1.0-12.0); Platelet Count 203 K/mcL (140-440); RBC 4.02 M/mcL (4.50-5.90); Red Cell Distribution Width 14.2 % (11.5-14.5); WBC 7.3 K/mcL (4.5-11.0)
[2019-06-17 05:47] LABS: ALT/SGPT 96 U/l (0-40); AST/SGOT 76 U/l (0-37); Albumin 3.4 gm/dL (3.2-5.2); Albumin/Globulin Ratio 1.2 (1.0-2.3); Alkaline Phosphatase 176 U/L (39-117); Bilirubin,Direct 0.2 mg/dL (0.0-0.3); Bilirubin,Total 0.7 mg/dL (0.0-1.0); Blood Urea Nitrogen 11 mg/dl (8-23); Carbon Dioxide 29 mmol/L (22-30); Chloride 101 mmol/L (96-108); Globulin 2.9 gm/dL (2.2-3.7); Glomerular Filtration Rate 54; Glucose 105 mg/dL (70-105); Lactate Dehydrogenase 265 U/L (94-250); Phosphorous 2.8 mg/dL (2.7-4.5); Triglycerides 137 mg/dl (<150); Uric Acid 4.1 mg/dL (2.5-8.0)
[2019-06-17] MEDS: 0.9 % SODIUM CHLORIDE 10 ML SYRINGE IV SCH ×5 (05:56→21:13)
[2019-06-17] MEDS: INSULIN LISPRO 1 UNIT/0.01 ML UNIT SQ SCH ×4 (06:56→20:43)
[2019-06-17] MEDS ORDERED: LIDOCAINE HCL/PF 100 MG/5 ML SYRINGE IV ONE (08:06)
[2019-06-17] MEDS ORDERED: ROCURONIUM 10 MG/ML ML IV ONE (08:06)
[2019-06-17] MEDS ORDERED: ONDANSETRON 4 MG/2 ML VIAL IV ONE (08:06)
[2019-06-17] MEDS ORDERED: ESMOLOL 100 MG/10 ML VIAL IV ONE (08:06)
[2019-06-17] MEDS ORDERED: SUGAMMADEX SODIUM 200 MG/2 ML VIAL IV ONE (08:06)
[2019-06-17] MEDS ORDERED: DEXAMETHASONE 10 MG/ML VIAL IV ONE (08:06)
[2019-06-17] MEDS ORDERED: GLYCOPYRROLATE 0.2 MG/ML VIAL IV ONE (08:06)
[2019-06-17] MEDS ORDERED: fentaNYL 100 MCG/2 ML VIAL IV ONE (08:06)
[2019-06-17] MEDS ORDERED: KETAMINE 100 MG/ML ML IV ONE (08:06)
[2019-06-17] MEDS ORDERED: PROPOFOL 200 MG/20 ML VIAL IV ONE (08:06)
[2019-06-17] MEDS ORDERED: MIDAZOLAM 2 MG/2 ML VIAL IV ONE (08:06)
[2019-06-17] MEDS ORDERED: LACTATED RINGERS 1,000 ML IV SCH ×2 (09:15→10:49)
[2019-06-17] MEDS ORDERED: ePHEDrine 50 MG/ML AMPUL IV PRN ×2 (09:15→10:49)
[2019-06-17] MEDS ORDERED: MEPERIDINE 50 MG/ML INJECTION IM PRN ×2 (09:15→10:49)
[2019-06-17] MEDS ORDERED: BENZOCAINE/MENTHOL 1 LOZENGE PO PRN ×2 (09:15→10:49)
[2019-06-17] MEDS ORDERED: IPRATROPIUM/ALBUTEROL 3 ML AMPUL.NEB NEB PRN ×3 (09:15→10:49)
[2019-06-17] MEDS ORDERED: PROMETHAZINE 25 MG/ML VIAL IM PRN ×2 (09:15→10:49)
[2019-06-17] MEDS ORDERED: fentaNYL 100 MCG/2 ML VIAL IV PRN ×2 (09:15→10:49)
[2019-06-17] MEDS ORDERED: ONDANSETRON 4 MG/2 ML VIAL IV PRN ×3 (09:15→10:49)
[2019-06-17] MEDS ORDERED: METOPROLOL TARTRATE 5 MG/5 ML VIAL IV PRN ×2 (09:15→10:49)
--- NOTE | 2019-06-17 09:30 | Brief Operative Note ---
Date of procedure: 06/17/19 Pre-op diagnosis: cholelithiasis with cholecystitis Post-op diagnosis: other (cholelithiasis with cholecystitis) Procedure: laparoscopic cholecystectomy Grafts/Implants: No (danitza drain drain x1 #10) Anesthesia: GETA Findings: dilated edematous gallbladder with small stones Complications: none Surgeon: Yi Cheung Estimated blood loss (cc): 10 Specimens Removed/Pathology: other (gallbladder) Condition: stable Disposition: PACU
[2019-06-17] MEDS ORDERED: LACTULOSE 20 GM/30 ML ORAL.SOL PO PRN (10:49)
[2019-06-17] MEDS ORDERED: POTASSIUM CHLORIDE 20 MEQ TABLET PO PRN ×2 (10:49)
[2019-06-17] MEDS ORDERED: POLYETHYLENE GLYCOL 3350 17 GM PACKET PO PRN (10:49)
[2019-06-17] MEDS ORDERED: DEXTROSE 31 GM ORAL.SUSP PO PRN (10:49)
[2019-06-17] MEDS ORDERED: MAGNESIUM SULFATE 2 GM/50 ML BAG IV PRN (10:49)
[2019-06-17] MEDS ORDERED: DEXTROSE 50% 50 ML VIAL IV PRN (10:49)
[2019-06-17] MEDS ORDERED: ACETAMINOPHEN 1,000 MG/100 ML BOTTLE IV PRN (10:49)
[2019-06-17] MEDS ORDERED: POTASSIUM CHLORIDE 40 MEQ in DEXTROSE 5% IN WATER 500 ML IV PRN (10:49)
[2019-06-17] MEDS ORDERED: HYDROmorphone 2 MG/ML VIAL IV PRN (10:49)
--- NOTE | 2019-06-17 11:01 | Internal Med Progress Note ---
Medical - PN: Subj Patient information: Note initiated : 06/17/19 at 10:58 am Service Date, if different from initiated Date: [] Patient: Parag Monk 89 y/o M admitted on 06/14/19 for Fall. Chief Complaint: [] Interval history: History obtained from patient and family. Patient states he felt fine going to bed last night and felt fine yesterday. In the middle night he up to urinate went to the bathroom came back to bed but was too weak to get into bed and had a controlled fall to the ground scraping his knees on the carpet. He denies any headache fever chills stomach pain diarrhea constipation. When asked about chest pain he said he did have chest pain in the center before he went to bed while he was sitting in his chair that lasted for several hours and felt better after taking [place]. He was seen in minor care a month prior for the similar type of chest pain/epigastric pain had a EKG and troponin which were unremarkable. There was some initial concern about confusion but discussion with the family he is never been confused. Per EMS he is quite weak and it sounds like there might of been a low blood pressure obtained by EMS but I do not have the results. In the ED is found to have leukocytosis with elevated lactate level mildly elevated liver enzymes and elevated urine creatinine. Systolic blood pressure in the ER range from 97-124. He received several liters of IV fluids as well as vancomycin and Zosyn. CT abdomen pelvis was obtained which revealed atelectasis large right inguinal hernia and hiatal hernia. It did show cholelithiasis with some gallbladder wall thickening. Gallbladder ultrasound showed cholelithiasis with mild gallbladder wall thickening common bile duct was within normal limits, no mention of pericholecystic fluid. Case was discussed with Dr. Cheung who will review the abdominal imaging. Other than the possible gallbladder no obvious source of infection seen at this time. [id number] bacteremia with E. coli on initial identification. Sensory is pending. Repeat surveillance cultures pending. Procalcitonin 25. ID consulted. MRCP no evidence of biliary obstruction. Patient undergo cholecystectomy likely on Thursday. Echocardiogram awaited. Continue IV antibiotics. De-escalate based on culture sensitivities per ID. T-max 101.3. Lactic acid normalized, white count down from 19.8-13.1, creatinine improved to 1.5 from 1.7. 06/16-patient doing remarkably better. No overnight events during fever chills. White count downtrending. LFTs improving. Due for surgery in 24 hours. 06/17-patient seen postoperatively. No overnight events. Underwent laparoscopic cholecystectomy. Currently under anesthesia sedated. No apparent discomfort. Telemetry sinus rhythm. Nonlabored breathing. No family at bedside. White count 7.3. Creatinine 1.2 with downtrending LFTs - Constitutional Vitals: Vital Signs Temp Pulse Resp BP Pulse Ox 97.4 F 84 16 163/78 96 06/17/19 09:35 06/17/19 10:30 06/17/19 10:30 06/17/19 10:30 06/17/19 10:30 Period Temp Pulse Resp BP Sys/[place] Pulse Ox Last 24 Hr 97.4 F-99.0 F 84-111 12-20 115-163/58-92 90-98 Intake and Output 06/16/19 06/17/19 06/17/19 21:59 05:59 13:59 Intake Total 625 36 1511 Output Total 27 1 50 Balance 503 49 950 Weight 217 lb 9.6 oz Intake & Output: Intake & Output 06/16/19 06/17/19 06/17/19 21:59 05:59 13:59 Intake Total 534 25 2832 Output Total 27 1 50 Balance 503 49 950 Weight 217 lb 9.6 oz Intake: IV 50 50 50 Zosyn 3.375 gm In Dextrose 5% 50 50 50 in Water 50 ml @ 100 mls/hr IV Q6H [facility] Rx#:[id number] Oral 480 IV - Manual Only 950 Output: Drainage 35 Right Abdomen SALOME Drain 35 Void Amount 25 # of times incontinent of urine 2 1 Estimated Blood Loss 15 Other: Meal Jello Percent of Meal Consumed 25% Feeding Ability Independent Urine Appearance Clear Clear Urine Color Bright Yellow Bright Yellow Stool Size Large Stool Color Brown Stool Consistency Soft Formed # Bowel Movements 1 General appearance: no acute distress Exam: Resting comfortably Telemetry sinus rhythm Nonlabored breathing Nondistended nontender abdomen Medical - PN: Obj Da - Labs CBC & Chem 7: 06/17/19 03:56 06/17/19 03:56 Labs: Abnormal Lab Results 06/17/19 06/17/19 06/16/19 03:56 03:56 03:48 WBC RBC 4.02 L Hgb 11.8 L Hct 36.1 L RDW Gran % Lymph % (Auto) 14.5 L Lymph # (Auto) 1.1 L Seg Neutrophils % Lymphocytes % PT INR VBG Lactic Acid Creatinine 1.3 H Glucose 116 H Calcium 8.0 L 7.4 L Phosphorus Magnesium GGT 194 H 196 H AST 76 H 122 H ALT 96 H 116 H Alkaline Phosphatase 176 H 178 H Lactate Dehydrogenase 265 H 270 H Total Protein 5.7 L Albumin 3.0 L 06/16/19 06/15/19 06/15/19 03:48 04:03 04:03 WBC RBC 3.79 L Hgb 11.1 L Hct 33.9 L RDW 14.6 H Gran % 84.5 H Lymph % (Auto) 7.2 L Lymph # (Auto) 0.6 L Seg Neutrophils % Lymphocytes % PT 17.7 H INR 1.5 H VBG Lactic Acid Creatinine 1.5 H Glucose 121 H Calcium 7.3 L Phosphorus Magnesium GGT 229 H AST 240 H ALT 161 H Alkaline Phosphatase 214 H Lactate Dehydrogenase 353 H Total Protein Albumin 06/15/19 06/14/19 06/14/19 04:03 22:35 11:03 WBC 13.1 H RBC 3.84 L Hgb 11.1 L Hct 34.6 L RDW Gran % Lymph % (Auto) Lymph # (Auto) Seg Neutrophils % 84 H Lymphocytes % 6 L PT INR VBG Lactic Acid 3.7 H Creatinine 1.7 H Glucose 139 H Calcium 7.1 L Phosphorus 2.6 L Magnesium 1.2 L GGT 236 H AST 273 H ALT 174 H Alkaline Phosphatase 220 H Lactate Dehydrogenase 413 H Total Protein Albumin Meds: Medications Albuterol/Ipratropium (Duoneb) 3 ml NEB Q4HP PRN PRN Reason: Shortness Of Breath Aspirin (Aspirin) 81 mg PO DAILY GARY Dextrose (Dextrose 50%) 0 ml IV UD PRN PRN Reason: Hypoglycemia Diagnostic Test (Pha) (Accu-Chek) 1 each FS ACHS GARY Docusate Sodium (Colace) 100 mg PO BID GARY Famotidine (Pepcid) 20 mg PO BID GARY Finasteride (Proscar) 5 mg PO QDAY GARY Glucose (Insta-Glucose) 15 gm PO PRN PRN PRN Reason: Hypoglycemia Hydromorphone HCl (Dilaudid) 0.25 mg IV Q4HP PRN; Protocol PRN Reason: Per Pain Protocol Potassium Chloride 40 meq/ (Dextrose) 520 mls @ 130 mls/hr IV UD PRN PRN Reason: Potassium < 3 Magnesium Sulfate (Magnesium Sulfate) 2 gm in 50 mls @ 50 mls/hr IV UD PRN PRN Reason: Magnesium </= 1.6 Acetaminophen (Ofirmev) 1,000 mg in 100 mls @ 200 mls/hr IV Q8HP PRN; Protocol PRN Reason: PAIN/FEVER > 101 Piperacillin Sod/Tazobactam (Sod 3.375 gm/ Dextrose) 50 mls @ 100 mls/hr IV Q6H GARY; Protocol Insulin Human Lispro (Humalog) 0 unit SQ ACHS GARY; Protocol Lactulose (Cephulac) 10 gm PO DAILYP PRN PRN Reason: Constipation Ondansetron HCl (Zofran) 4 mg IV Q4HP PRN PRN Reason: Nausea And Vomiting Polyethylene Glycol (Miralax) 17 gm PO DAILYP PRN PRN Reason: Constipation Potassium Chloride (Kdur) 40 meq PO UD PRN PRN Reason: Potssium is 3-3.5 Potassium Chloride (Kdur) 40 meq PO UD PRN PRN Reason: Potassium < 3 Senna (Senokot) 2 tab PO HSP PRN PRN Reason: Constipation Simvastatin (Zocor) 20 mg PO HS GARY Sodium Chloride (Saline Flush) 10 ml IV Q8 GARY Tamsulosin HCl (Flomax) 0.8 mg PO QDAY [facility] Medical - PN: A/P - Time Spent With Patient Total time spent is greater than 50% in coordination of care (as documented) at patient's floor/unit and/or counseling patient: 25 - 35 minutes (1) E coli bacteremia Status: Acute Assessment and plan: * E. coli bacteremia-likely source acute cholecystitis. Surveillance cultures negative so far. Continue antibiotic coverage. Echocardiogram unremarkable * Acute cholecystitis -underwent laparoscopic cholecystectomy. Continue close monitoring and postoperative phase * Severe sepsis with leukocytosis/evidence of endorgan dysfunction including CARLOS. Clinically resolved. * CARLOS-clinically resolved. Creatinine down from 1.8-1.2 * Transaminitis secondary to acute cholecystitis. Clinically improving * DM type II continue basal panel insulin * History of BPH follows up with Dr. Ayah * History of hypertension-currently stable with systolics around 120s * Full code * Prophylaxis Lovenox Plan * Postoperative care per surgery/hemodynamic monitoring * De-escalate antibiotics * Pre-existing medical condition management home meds * PT OT * Discharge planning per case management Current Visit: Yes Medical - PN: Qual - Stroke Symptom Onset Unknown: No - VTE Deep Vein Thrombosis/Pulmonary Embolism Present on Admission: No
[2019-06-17] MEDS: DOCUSATE SODIUM 100 MG CAPSULE PO SCH ×2 (11:46→21:12)
[2019-06-17] MEDS: TAMSULOSIN 0.4 MG CAPSULE PO SCH ×2 (11:46→16:36)
[2019-06-17] MEDS: ASPIRIN 81 MG TAB.CHEW PO SCH (11:46)
[2019-06-17] MEDS: FAMOTIDINE 20 MG TABLET PO SCH ×2 (11:47→21:12)
[2019-06-17] MEDS: FINASTERIDE 5 MG TABLET PO SCH ×2 (11:47→16:36)
[2019-06-17] MEDS: ENOXAPARIN 40 MG/0.4 ML SYRINGE SQ SCH (14:30)
[2019-06-17] MEDS ORDERED: TAMSULOSIN 0.4 MG CAPSULE PO ONE (16:37)
[2019-06-17] MEDS ORDERED: FINASTERIDE 5 MG TABLET PO ONE (16:38)
[2019-06-17] MEDS ORDERED: SENNOSIDES 1 TABLET PO PRN (21:00)
[2019-06-17] MEDS ORDERED: SIMVASTATIN 20 MG TABLET PO SCH (21:00)
[2019-06-18] MEDS: PIPERACILLIN SODIUM/TAZOBACTAM 3.375 GM in DEXTROSE 5% IN WATER 50 ML IV SCH ×5 (00:30→23:37)
[2019-06-18] MEDS: 0.9 % SODIUM CHLORIDE 10 ML SYRINGE IV SCH ×5 (05:44→22:08)
[2019-06-18] MEDS: INSULIN LISPRO 1 UNIT/0.01 ML UNIT SQ SCH ×4 (07:54→22:08)
[2019-06-18 08:05] LABS: Basophils # (Auto) 0 K/mcL (0.0-0.3); Basophils % (Auto) 0.1 % (0.0-2.0); Eosinophils # (Auto) 0 K/mcL (0.0-0.7); Eosinophils % (Auto) 0.3 % (0.0-7.0); Granulocytes % (Auto) 82.7 % (38.0-78.0); Hematocrit 36.4 % (41.0-55.0); Hemoglobin 11.6 g/dL (13.5-16.5); Lymphocytes # (Auto) 0.8 K/mcL (1.5-4.8); Mean Cell Volume 89.3 fL (80.0-100.0); Mean Corpuscular HGB Conc 31.9 g/dL (31.0-36.0); Mean Platelet Volume 8.8 fL (7.4-10.4); Monocytes # (Auto) 0.7 K/mcL (0.1-0.9); Monocytes % (Auto) 7.9 % (1.0-12.0); Platelet Count 214 K/mcL (140-440); RBC 4.08 M/mcL (4.50-5.90); Red Cell Distribution Width 14.2 % (11.5-14.5); WBC 8.5 K/mcL (4.5-11.0)
[2019-06-18 08:22] LABS: ALT/SGPT 98 U/l (0-40); AST/SGOT 61 U/l (0-37); Albumin 3.4 gm/dL (3.2-5.2); Albumin/Globulin Ratio 1.3 (1.0-2.3); Alkaline Phosphatase 158 U/L (39-117); Bilirubin,Direct < 0.2 mg/dL (0.0-0.3); Bilirubin,Total 0.4 mg/dL (0.0-1.0); Blood Urea Nitrogen 11 mg/dl (8-23); Calcium 8.2 mg/dl (8.6-10.4); Carbon Dioxide 29 mmol/L (22-30); Chloride 104 mmol/L (96-108); Globulin 2.7 gm/dL (2.2-3.7); Glomerular Filtration Rate 60; Glucose 128 mg/dL (70-105); Lactate Dehydrogenase 228 U/L (94-250); Phosphorous 2.3 mg/dL (2.7-4.5); Triglycerides 97 mg/dl (<150); Uric Acid 4.1 mg/dL (2.5-8.0)
[2019-06-18] MEDS: FAMOTIDINE 20 MG TABLET PO SCH (08:25)
[2019-06-18] MEDS: DOCUSATE SODIUM 100 MG CAPSULE PO SCH ×2 (08:26→22:06)
[2019-06-18] MEDS ORDERED: MELATONIN 3 MG TABLET PO PRN ×2 (08:40→11:38)
[2019-06-18] MEDS ORDERED: FINASTERIDE 5 MG TABLET PO SCH (09:00)
[2019-06-18] MEDS ORDERED: ASPIRIN 81 MG TAB.CHEW PO SCH (09:00)
[2019-06-18] MEDS ORDERED: BISOPROLOL 5 MG TABLET PO SCH (09:00)
[2019-06-18] MEDS ORDERED: NEUTRA PHOS 1 PACKET PO SCH ×2 (09:00→21:00)
[2019-06-18] MEDS ORDERED: OLMESARTAN MEDOXOMIL 20 MG TABLET PO SCH (09:00)
[2019-06-18] MEDS ORDERED: TAMSULOSIN 0.4 MG CAPSULE PO SCH (09:00)
[2019-06-18] MEDS ORDERED: amLODIPine 5 MG TABLET PO SCH (09:00)
--- NOTE | 2019-06-18 09:59 | General Surgery Progress Note ---
Subjective Patient reports: feels better, pain is less, tolerating liquids well, flatus, no bowel movement, afebrile Narrative: Note initiated : 06/18/19 at 9:57 am Service Date, if different from initiated Date: [] Patient: Parag Monk 89 y/o M admitted on 06/14/19 for Fall. Chief Complaint: [Patient is doing well. He states that he has no pain. He denies nausea. He denies shortness of breath or chest discomfort. He had flatus but no bowel movement incisional discomfort is controlled. White blood count 8.5, hemoglobin 11.6, hematocrit 36.4, BUN 11, creatinine 1.1, phosphorus 2.3. LFTs decreased but still slightly elevated bilirubin is normal.] Objective Temp Pulse Resp BP Pulse Ox 97.8 F 88 22 161/80 92 06/18/19 07:01 06/18/19 08:37 06/18/19 09:21 06/18/19 09:21 06/18/19 09:21 - Additional Data Intake & Output - Last 24 hours: Intake & Output 06/16/19 06/17/19 06/18/19 06/19/19 05:59 05:59 05:59 05:59 Intake Total 940 3120 1490 650 Output Total 998 784 2948 1 Balance 237 2916 235 649 Weight 219 lb 4 oz 217 lb 9.6 oz 218 lb - General physical appearance well developed, well nourished, no distress - Eyes PERRL, normal ocular movement - ENT normal pinna, normal nares, normal mucosa, no congestion, decreased hearing - Neck no masses, no bruits, trachea midline, no lymphadenopathy, no venous distension - Respiratory normal expansion, normal respiratory effort, clear to auscultation - Cardiovascular Cardiovascular exam: Present: normal rate and rhythm, RRR, +S1, +S2. Absent: irregular rhythm, JVD, tachycardia - Abdomen tender (mild tenderness around port sites otherwise benign abdominal exam; good active bowel sounds), bowel sounds (present), surgical scars (none), masses ( none) - Integumentary no rash, no growths, no abnormal pigmentation - Neurologic normal coordination, normal sensation - Musculoskeletal normal gait, normal posture - Psychiatric oriented to time, oriented to person, oriented to place, speech is normal, memory intact - Labs 06/18/19 07:15 06/18/19 07:15 Diabetes panel 06/18/19 Range/Units 07:15 Sodium 143 (133-145) mmol/L Potassium 4.3 (3.3-5.1) mmol/L Chloride 104 (96-108) mmol/L Carbon Dioxide 29 (22-30) mmol/L BUN 11 (8-23) mg/dl Creatinine 1.1 (0.7-1.2) mg/dl Glucose 128 H (70-105) mg/dL Calcium 8.2 L (8.6-10.4) mg/dl AST 61 H (0-37) U/l ALT 98 H (0-40) U/l Alkaline Phosphatase 158 H (39-117) U/L Total Protein 6.1 (5.9-8.4) gm/dL Albumin 3.4 (3.2-5.2) gm/dL Triglycerides 97 (<150) mg/dl Calcium panel 06/18/19 Range/Units 07:15 Calcium 8.2 L (8.6-10.4) mg/dl Phosphorus 2.3 L (2.7-4.5) mg/dL Albumin 3.4 (3.2-5.2) gm/dL Pituitary panel 06/18/19 Range/Units 07:15 Sodium 143 (133-145) mmol/L Potassium 4.3 (3.3-5.1) mmol/L Chloride 104 (96-108) mmol/L Carbon Dioxide 29 (22-30) mmol/L BUN 11 (8-23) mg/dl Creatinine 1.1 (0.7-1.2) mg/dl Glucose 128 H (70-105) mg/dL Calcium 8.2 L (8.6-10.4) mg/dl Adrenal panel 06/18/19 Range/Units 07:15 Sodium 143 (133-145) mmol/L Potassium 4.3 (3.3-5.1) mmol/L Chloride 104 (96-108) mmol/L Carbon Dioxide 29 (22-30) mmol/L BUN 11 (8-23) mg/dl Creatinine 1.1 (0.7-1.2) mg/dl Glucose 128 H (70-105) mg/dL Calcium 8.2 L (8.6-10.4) mg/dl Total Bilirubin 0.4 (0.0-1.0) mg/dL AST 61 H (0-37) U/l ALT 98 H (0-40) U/l Alkaline Phosphatase 158 H (39-117) U/L Total Protein 6.1 (5.9-8.4) gm/dL Albumin 3.4 (3.2-5.2) gm/dL Assessment and Plan (1) Elevated liver enzymes Status: Acute Assessment and plan: Stable status post laparoscopic cholecystectomy Current Visit: Yes (2) Cholelithiasis and acute cholecystitis without obstruction Status: Acute Assessment and plan: As noted above Current Visit: Yes (3) Essential (primary) hypertension Status: Chronic Current Visit: No (4) Nonrheumatic aortic valve stenosis Status: Chronic Current Visit: No (5) Type 2 diabetes mellitus without complication Status: Chronic Current Visit: No (6) Bacteremia due to Gram-negative bacteria Status: Resolved Current Visit: Yes - Time Spent With Patient Total time spent is greater than 50% in coordination of care (as documented) at patient's floor/unit and/or counseling patient:
[2019-06-18] MEDS ORDERED: POTASSIUM PHOSPHATE 40 MEQ in DEXTROSE 5% IN WATER 500 ML IV ONE (10:03)
--- NOTE | 2019-06-18 10:25 | Internal Med Progress Note ---
Medical - PN: Subj Patient information: Note initiated : 06/18/19 at 10:21 am Service Date, if different from initiated Date: [] Patient: Parag Monk 89 y/o M admitted on 06/14/19 for Fall. Chief Complaint: [] Interval history: History obtained from patient and family. Patient states he felt fine going to bed last night and felt fine yesterday. In the middle night he up to urinate went to the bathroom came back to bed but was too weak to get into bed and had a controlled fall to the ground scraping his knees on the carpet. He denies any headache fever chills stomach pain diarrhea constipation. When asked about chest pain he said he did have chest pain in the center before he went to bed while he was sitting in his chair that lasted for several hours and felt better after taking Monie-[place]. He was seen in minor care a month prior for the similar type of chest pain/epigastric pain had a EKG and troponin which were unremarkable. There was some initial concern about confusion but discussion with the family he is never been confused. Per EMS he is quite weak and it sounds like there might of been a low blood pressure obtained by EMS but I do not have the results. In the ED is found to have leukocytosis with elevated lactate level mildly elevated liver enzymes and elevated urine creatinine. Systolic blood pressure in the ER range from 97-124. He received several liters of IV fluids as well as vancomycin and Zosyn. CT abdomen pelvis was obtained which revealed atelectasis large right inguinal hernia and hiatal hernia. It did show cholelithiasis with some gallbladder wall thickening. Gallbladder ultrasound showed cholelithiasis with mild gallbladder wall thickening common bile duct was within normal limits, no mention of pericholecystic fluid. Case was discussed with Dr. Cheung who will review the abdominal imaging. Other than the possible gallbladder no obvious source of infection seen at this time. [id number] bacteremia with E. coli on initial identification. Sensory is pending. Repeat surveillance cultures pending. Procalcitonin 25. ID consulted. MRCP no evidence of biliary obstruction. Patient undergo cholecystectomy likely on Thursday. Echocardiogram awaited. Continue IV antibiotics. De-escalate based on culture sensitivities per ID. T-max 101.3. Lactic acid normalized, white count down from 19.8-13.1, creatinine improved to 1.5 from 1.7. 06/16-patient doing remarkably better. No overnight events during fever chills. White count downtrending. LFTs improving. Due for surgery in 24 hours. 06/17-patient seen postoperatively. No overnight events. Underwent laparoscopic cholecystectomy. Currently under anesthesia sedated. No apparent discomfort. Telemetry sinus rhythm. Nonlabored breathing. No family at bedside. White count 7.3. Creatinine 1.2 with downtrending LFTs 06/18-patient doing a lot better. Postop day 2. No overnight fever chills. Pansensitive E. coli. Anticipate discharge on Thursday with outpatient an tibiotics for total of 14 days from positive blood culture. Diet advancement as per surgery. Start oral medications for pre-existing medical issues. No overnight events or concerns per staff. No telemetry events. Pain in good control. Intermittent cough but improved wheezing. Postop urine retention status post straight catheterization with minimal trauma. Continue voiding trials - Constitutional Vitals: Vital Signs Temp Pulse Resp BP Pulse Ox 97.8 F 88 22 161/80 92 06/18/19 07:01 06/18/19 08:37 06/18/19 09:21 06/18/19 09:21 06/18/19 09:21 Period Temp Pulse Resp BP Sys/Mesa Pulse Ox Last 24 Hr 97.3 F-97.9 F 84-88 14-23 116-163/53-92 90-98 Intake and Output 06/17/19 06/18/19 06/18/19 21:59 05:59 13:59 Intake Total 290 50 650 Output Total 575 630 1 Balance -285 -580 649 Weight 218 lb Intake & Output: Intake & Output 06/17/19 06/18/19 06/18/19 21:59 05:59 13:59 Intake Total 290 50 650 Output Total 575 630 1 Balance -285 -580 649 Weight 218 lb Intake: IV 50 50 50 Zosyn 3.375 gm In Dextrose 5% 50 50 50 in Water 50 ml @ 100 mls/hr IV Q6H [facility] Rx#:[id number] Oral 240 600 Output: Drainage 30 Right Abdomen SALOME Drain 30 Urine Catheter Amount 575 600 Straight 575 600 # of times incontinent of urine 1 Other: Meal Lunch Breakfast Percent of Meal Consumed 100% 100% Feeding Ability Independent Urine Appearance Hematuria Small Blood Clots Straight Clear Clear Urine Color Straight Bright Yellow Blood Tinged Blood Tinged General appearance: no acute distress Exam: Improved wheezing nonlabored breathing Nondistended nontender abdomen No telemetry events Medical - PN: Obj Da - Labs CBC & Chem 7: 06/18/19 07:15 06/18/19 07:15 Labs: Abnormal Lab Results 06/18/19 06/18/19 06/17/19 07:15 07:15 03:56 RBC 4.08 L Hgb 11.6 L Hct 36.4 L RDW Gran % 82.7 H Lymph % (Auto) 9.0 L Lymph # (Auto) 0.8 L Creatinine Glucose 128 H Calcium 8.2 L 8.0 L Phosphorus 2.3 L GGT 186 H 194 H AST 61 H 76 H ALT 98 H 96 H Alkaline Phosphatase 158 H 176 H Lactate Dehydrogenase 265 H Total Protein Albumin 06/17/19 06/16/19 06/16/19 03:56 03:48 03:48 RBC 4.02 L 3.79 L Hgb 11.8 L 11.1 L Hct 36.1 L 33.9 L RDW 14.6 H Gran % 84.5 H Lymph % (Auto) 14.5 L 7.2 L Lymph # (Auto) 1.1 L 0.6 L Creatinine 1.3 H Glucose 116 H Calcium 7.4 L Phosphorus GGT 196 H AST 122 H ALT 116 H Alkaline Phosphatase 178 H Lactate Dehydrogenase 270 H Total Protein 5.7 L Albumin 3.0 L Meds: Medications Albuterol/Ipratropium (Duoneb) 3 ml NEB Q4HP PRN PRN Reason: Shortness Of Breath Last Admin: 06/18/19 08:29 Dose: 3 ml Documented by: Aspirin (Aspirin) 81 mg PO DAILY [facility] Last Admin: 06/18/19 08:25 Dose: 81 mg Documented by: Dextrose (Dextrose 50%) 0 ml IV UD PRN PRN Reason: Hypoglycemia Diagnostic Test (Pha) (Accu-Chek) 1 each FS ACHS [facility] Last Admin: 06/18/19 07:20 Dose: 1 each Documented by: Docusate Sodium (Colace) 100 mg PO BID [facility] Last Admin: 06/18/19 08:26 Dose: 100 mg Documented by: Famotidine (Pepcid) 20 mg PO BID [facility] Last Admin: 06/18/19 08:25 Dose: 20 mg Documented by: Finasteride (Proscar) 5 mg PO QDAY [facility] Last Admin: 06/18/19 08:27 Dose: 5 mg Documented by: Glucose (Insta-Glucose) 15 gm PO PRN PRN PRN Reason: Hypoglycemia Hydromorphone HCl (Dilaudid) 0.25 mg IV Q4HP PRN; Protocol PRN Reason: Per Pain Protocol Potassium Chloride 40 meq/ (Dextrose) 520 mls @ 130 mls/hr IV UD PRN PRN Reason: Potassium < 3 Magnesium Sulfate (Magnesium Sulfate) 2 gm in 50 mls @ 50 mls/hr IV UD PRN PRN Reason: Magnesium </= 1.6 Acetaminophen (Ofirmev) 1,000 mg in 100 mls @ 200 mls/hr IV Q8HP PRN; Protocol PRN Reason: PAIN/FEVER > 101 Last Infusion: 06/17/19 12:11 Dose: Infused Documented by: Piperacillin Sod/Tazobactam (Sod 3.375 gm/ Dextrose) 50 mls @ 100 mls/hr IV Q6H [facility]; Protocol Last Infusion: 06/18/19 06:14 Dose: Infused Documented by: Insulin Human Lispro (Humalog) 0 unit SQ ACHS [facility]; Protocol Last Admin: 06/18/19 07:54 Dose: Not Given Documented by: Lactulose (Cephulac) 10 gm PO DAILYP PRN PRN Reason: Constipation Melatonin (Melatonin 3mg Tablet) 3 mg PO HSP PRN PRN Reason: Insomnia Ondansetron HCl (Zofran) 4 mg IV Q4HP PRN PRN Reason: Nausea And Vomiting Polyethylene Glycol (Miralax) 17 gm PO DAILYP PRN PRN Reason: Constipation Potassium Chloride (Kdur) 40 meq PO UD PRN PRN Reason: Potssium is 3-3.5 Last Admin: 06/17/19 16:57 Dose: 40 meq Documented by: Potassium Chloride (Kdur) 40 meq PO UD PRN PRN Reason: Potassium < 3 Potassium/Phosphorus/Sodium (Neutra Phos) 2 packet PO BID [facility] Stop: 06/18/19 21:01 Senna (Senokot) 2 tab PO HSP PRN PRN Reason: Constipation Simvastatin (Zocor) 20 mg PO HS [facility] Last Admin: 06/17/19 21:12 Dose: 20 mg Documented by: Sodium Chloride (Saline Flush) 10 ml IV Q8 [facility] Last Admin: 06/18/19 06:14 Dose: 10 ml Documented by: Tamsulosin HCl (Flomax) 0.8 mg PO QDAY [facility] Last Admin: 06/18/19 08:27 Dose: 0.8 mg Documented by: Medical - PN: A/P - Time Spent With Patient Total time spent is greater than 50% in coordination of care (as documented) at patient's floor/unit and/or counseling patient: 25 - 35 minutes (1) E coli bacteremia Status: Acute Assessment and plan: * E. coli bacteremia-likely source acute cholecystitis. Continue antibiotic for total 14 days from first positive blood culture. Echocardiogram unremarkable * Acute cholecystitis -status post cholecystectomy. Postop care per surgery. Diet advancement per surgery. * Severe sepsis with leukocytosis/evidence of endorgan dysfunction including CARLOS. White count normalized * CARLOS-clinically back at baseline creatinine down from 1.8-1.1 * Transaminitis secondary to acute cholecystitis. Clinically improving * DM type II stable on basal prandial insulin * Postop urinary retention continue voiding trial/avoid Wesley's catheterization/tamsulosin/finasteride, patient follows up with Dr. Poon * History of hypertension-restart home dose bisoprolol/telmisartan/amlodipine/thiazide * Hyperlipidemia continue statin * Full code * Prophylaxis Lovenox Plan * Continue antibiotic coverage for total 14 days * De-escalate antibiotics oral levofloxacin * Pre-existing medical condition management home meds * Postop care /diet advancement per surgery/PT OT * Discharge planning per case management likely Thursday Current Visit: Yes Medical - PN: Qual - Stroke Symptom Onset Unknown: No - VTE Deep Vein Thrombosis/Pulmonary Embolism Present on Admission: No
[2019-06-18] MEDS ORDERED: POTASSIUM CHLORIDE 40 MEQ in DEXTROSE 5% IN WATER 500 ML IV PRN (11:38)
[2019-06-18] MEDS ORDERED: SENNOSIDES 1 TABLET PO PRN (11:38)
[2019-06-18] MEDS ORDERED: DEXTROSE 50% 50 ML VIAL IV PRN (11:38)
[2019-06-18] MEDS ORDERED: MAGNESIUM SULFATE 2 GM/50 ML BAG IV PRN (11:38)
[2019-06-18] MEDS ORDERED: IPRATROPIUM/ALBUTEROL 3 ML AMPUL.NEB NEB PRN (11:38)
[2019-06-18] MEDS ORDERED: HYDROmorphone 2 MG/ML VIAL IV PRN (11:38)
[2019-06-18] MEDS ORDERED: POLYETHYLENE GLYCOL 3350 17 GM PACKET PO PRN (11:38)
[2019-06-18] MEDS ORDERED: ONDANSETRON 4 MG/2 ML VIAL IV PRN (11:38)
[2019-06-18] MEDS ORDERED: LACTULOSE 20 GM/30 ML ORAL.SOL PO PRN (11:38)
[2019-06-18] MEDS ORDERED: DEXTROSE 31 GM ORAL.SUSP PO PRN (11:38)
[2019-06-18] MEDS ORDERED: ACETAMINOPHEN 1,000 MG/100 ML BOTTLE IV PRN (11:38)
[2019-06-18] MEDS ORDERED: POTASSIUM CHLORIDE 20 MEQ TABLET PO PRN ×2 (11:38)
--- NOTE | 2019-06-18 12:36 | Internal Med Progress Note ---
Medical - PN: Subj Patient information: Note initiated : 06/18/19 at 12:31 pm Service Date, if different from initiated Date: [] Patient: Parag Monk 89 y/o M admitted on 06/14/19 for Fall. Chief Complaint: [] Interval history: History obtained from patient and family. Patient states he felt fine going to bed last night and felt fine yesterday. In the middle night he up to urinate went to the bathroom came back to bed but was too weak to get into bed and had a controlled fall to the ground scraping his knees on the carpet. He denies any headache fever chills stomach pain diarrhea constipation. When asked about chest pain he said he did have chest pain in the center before he went to bed while he was sitting in his chair that lasted for several hours and felt better after taking Monie-[place]. He was seen in minor care a month prior for the similar type of chest pain/epigastric pain had a EKG and troponin which were unremarkable. There was some initial concern about confusion but discussion with the family he is never been confused. Per EMS he is quite weak and it sounds like there might of been a low blood pressure obtained by EMS but I do not have the results. In the ED is found to have leukocytosis with elevated lactate level mildly elevated liver enzymes and elevated urine creatinine. Systolic blood pressure in the ER range from 97-124. He received several liters of IV fluids as well as vancomycin and Zosyn. CT abdomen pelvis was obtained which revealed atelectasis large right inguinal hernia and hiatal hernia. It did show cholelithiasis with some gallbladder wall thickening. Gallbladder ultrasound showed cholelithiasis with mild gallbladder wall thickening common bile duct was within normal limits, no mention of pericholecystic fluid. Case was discussed with Dr. Cheung who will review the abdominal imaging. Other than the possible gallbladder no obvious source of infection seen at this time. [id number] bacteremia with E. coli on initial identification. Sensory is pending. Repeat surveillance cultures pending. Procalcitonin 25. ID consulted. MRCP no evidence of biliary obstruction. Patient undergo cholecystectomy likely on Thursday. Echocardiogram awaited. Continue IV antibiotics. De-escalate based on culture sensitivities per ID. T-max 101.3. Lactic acid normalized, white count down from 19.8-13.1, creatinine improved to 1.5 from 1.7. 06/16-patient doing remarkably better. No overnight events during fever chills. White count downtrending. LFTs improving. Due for surgery in 24 hours. 06/17-patient seen postoperatively. No overnight events. Underwent laparoscopic cholecystectomy. Currently under anesthesia sedated. No apparent discomfort. Telemetry sinus rhythm. Nonlabored breathing. No family at bedside. White count 7.3. Creatinine 1.2 with downtrending LFTs 06/18-patient doing a lot better. Postop day 2. No overnight fever chills. Pansensitive E. coli. Anticipate discharge on Thursday with outpatient an tibiotics for total of 14 days from positive blood culture. Diet advancement as per surgery. Start oral medications for pre-existing medical issues. No overnight events or concerns per staff. No telemetry events. Pain in good control. Intermittent cough but improved wheezing. Postop urine retention status post straight catheterization with minimal trauma. Continue voiding trials - Constitutional Vitals: Vital Signs Temp Pulse Resp BP Pulse Ox 98 F 88 18 137/66 96 06/18/19 12:02 06/18/19 08:37 06/18/19 12:02 06/18/19 12:02 06/18/19 12:02 Period Temp Pulse Resp BP Sys/Mesa Pulse Ox Last 24 Hr 97.3 F-98 F 88 14-23 116-161/53-92 92-98 Intake and Output 06/17/19 06/18/19 06/18/19 21:59 05:59 13:59 Intake Total 290 50 650 Output Total 575 630 1 Balance -285 -580 649 Weight 98.883 kg Intake & Output: Intake & Output 06/17/19 06/18/19 06/18/19 21:59 05:59 13:59 Intake Total 290 50 650 Output Total 575 630 1 Balance -285 -580 649 Weight 98.883 kg Intake: IV 50 50 50 Zosyn 3.375 gm In Dextrose 5% 50 50 50 in Water 50 ml @ 100 mls/hr IV Q6H [facility] Rx#:[id number] Oral 240 600 Output: Drainage 30 Right Abdomen SALOME Drain 30 Urine Catheter Amount 575 600 Straight 575 600 # of times incontinent of urine 1 Other: Meal Lunch Breakfast Percent of Meal Consumed 100% 100% Feeding Ability Independent Urine Appearance Hematuria Small Blood Clots Straight Clear Clear Urine Color Straight Bright Yellow Blood Tinged Blood Tinged Exam: General: Alert, Awake, No acute Distress, obese Eyes/N/T: EOMI, Head/Neck: neck supple, CV: RRR, No murmurs, Pulm: improved wheezing bilaterally, no rhonchi rales Abd: soft, nontender, +BS x4 Ext: no clubbing/cyanosis, edema Neuro: Alert, no focal deficits, moves all extremities, Skin: warm/dry Medical - PN: Obj Da - Labs CBC & Chem 7: 06/18/19 07:15 06/18/19 07:15 Labs: Abnormal Lab Results 06/18/19 06/18/19 06/17/19 07:15 07:15 03:56 RBC 4.08 L Hgb 11.6 L Hct 36.4 L RDW Gran % 82.7 H Lymph % (Auto) 9.0 L Lymph # (Auto) 0.8 L Creatinine Glucose 128 H Calcium 8.2 L 8.0 L Phosphorus 2.3 L GGT 186 H 194 H AST 61 H 76 H ALT 98 H 96 H Alkaline Phosphatase 158 H 176 H Lactate Dehydrogenase 265 H Total Protein Albumin 06/17/19 06/16/19 06/16/19 03:56 03:48 03:48 RBC 4.02 L 3.79 L Hgb 11.8 L 11.1 L Hct 36.1 L 33.9 L RDW 14.6 H Gran % 84.5 H Lymph % (Auto) 14.5 L 7.2 L Lymph # (Auto) 1.1 L 0.6 L Creatinine 1.3 H Glucose 116 H Calcium 7.4 L Phosphorus GGT 196 H AST 122 H ALT 116 H Alkaline Phosphatase 178 H Lactate Dehydrogenase 270 H Total Protein 5.7 L Albumin 3.0 L Meds: Medications Albuterol/Ipratropium (Duoneb) 3 ml NEB Q4HP PRN PRN Reason: Shortness Of Breath Amlodipine Besylate (Norvasc) 5 mg PO DAILY [facility] Aspirin (Aspirin) 81 mg PO DAILY [facility] Bisoprolol Fumarate (Zebeta) 5 mg PO DAILY [facility] Dextrose (Dextrose 50%) 0 ml IV UD PRN PRN Reason: Hypoglycemia Diagnostic Test (Pha) (Accu-Chek) 1 each FS ACHS [facility] Docusate Sodium (Colace) 100 mg PO BID [facility] Ferrous Gluconate (Fergon) 324 mg PO QAC [facility] Finasteride (Proscar) 5 mg PO QDAY [facility] Glucose (Insta-Glucose) 15 gm PO PRN PRN PRN Reason: Hypoglycemia Hydrochlorothiazide (Oretic) 12.5 mg PO QDAY [facility] Hydromorphone HCl (Dilaudid) 0.25 mg IV Q4HP PRN; Protocol PRN Reason: Per Pain Protocol Potassium Chloride 40 meq/ (Dextrose) 520 mls @ 130 mls/hr IV UD PRN PRN Reason: Potassium < 3 Magnesium Sulfate (Magnesium Sulfate) 2 gm in 50 mls @ 50 mls/hr IV UD PRN PRN Reason: Magnesium </= 1.6 Acetaminophen (Ofirmev) 1,000 mg in 100 mls @ 200 mls/hr IV Q8HP PRN; Protocol PRN Reason: PAIN/FEVER > 101 Piperacillin Sod/Tazobactam (Sod 3.375 gm/ Dextrose) 50 mls @ 100 mls/hr IV Q6H [facility]; Protocol Insulin Human Lispro (Humalog) 0 unit SQ ACHS [facility]; Protocol Lactulose (Cephulac) 10 gm PO DAILYP PRN PRN Reason: Constipation Melatonin (Melatonin 3mg Tablet) 3 mg PO HSP PRN PRN Reason: Insomnia Metformin HCl (Glucophage) 750 mg PO BIDCC [facility] Olmesartan (Benicar) 40 mg PO DAILY [facility] Ondansetron HCl (Zofran) 4 mg IV Q4HP PRN PRN Reason: Nausea And Vomiting Pantoprazole Sodium (Protonix) [facility] Own Medication () 1 dose PO DAILY [facility] Polyethylene Glycol (Miralax) 17 gm PO DAILYP PRN PRN Reason: Constipation Potassium Chloride (Kdur) 40 meq PO UD PRN PRN Reason: Potssium is 3-3.5 Potassium Chloride (Kdur) 40 meq PO UD PRN PRN Reason: Potassium < 3 Potassium/Phosphorus/Sodium (Neutra Phos) 2 packet PO BID [facility] Stop: 06/18/19 21:01 Senna (Senokot) 2 tab PO HSP PRN PRN Reason: Constipation Simvastatin (Zocor) 20 mg PO HS [facility] Sodium Chloride (Saline Flush) 10 ml IV Q8 [facility] Tamsulosin HCl (Flomax) 0.8 mg PO QDAY [facility] Medical - PN: A/P - Time Spent With Patient Total time spent is greater than 50% in coordination of care (as documented) at patient's floor/unit and/or counseling patient: - Narrative A/P Narrative: A: *Acute Cholecystitis: *E.coli Bacteremia: 2/2 above *Sepsis: 2/2 above. 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 Poon * P: -Abx per ID, 14 day course, deesalate to PO Levaquin -Surg following, diet per Gen Surg -restarted maricruz BB/ARB/CCB/HCTZ -cont flomax/finasteride; voiding trials -SSI -IS for atelectasis -pt/ot -ppx: Lovenox/home PPI DNR Medical - PN: Qual - Stroke Symptom Onset Unknown: No - VTE Deep Vein Thrombosis/Pulmonary Embolism Present on Admission: No
[2019-06-18] MEDS: metFORMIN 500 MG TABLET PO SCH (17:15)
[2019-06-18] MEDS ORDERED: metFORMIN 500 MG TABLET PO SCH (17:30)
[2019-06-18] MEDS: SIMVASTATIN 20 MG TABLET PO SCH (22:06)
[2019-06-19 05:19] LABS: Basophils # (Auto) 0 K/mcL (0.0-0.3); Basophils % (Auto) 0.4 % (0.0-2.0); Eosinophils # (Auto) 0.1 K/mcL (0.0-0.7); Eosinophils % (Auto) 1.4 % (0.0-7.0); Granulocytes % (Auto) 79.4 % (38.0-78.0); Hematocrit 34.6 % (41.0-55.0); Lymphocytes # (Auto) 1.1 K/mcL (1.5-4.8); Lymphocytes % (Auto) 11.8 % (15.5-49.0); Mean Corpuscular HGB Conc 31.9 g/dL (31.0-36.0); Mean Platelet Volume 8.9 fL (7.4-10.4); Monocytes # (Auto) 0.7 K/mcL (0.1-0.9); Platelet Count 222 K/mcL (140-440); RBC 3.85 M/mcL (4.50-5.90); Red Cell Distribution Width 14.2 % (11.5-14.5); WBC 9.4 K/mcL (4.5-11.0)
[2019-06-19 05:42] LABS: ALT/SGPT 118 U/l (0-40); AST/SGOT 92 U/l (0-37); Albumin/Globulin Ratio 1.1 (1.0-2.3); Alkaline Phosphatase 258 U/L (39-117); Bilirubin,Direct < 0.2 mg/dL (0.0-0.3); Bilirubin,Total 0.4 mg/dL (0.0-1.0); Blood Urea Nitrogen 15 mg/dl (8-23); Calcium 8.3 mg/dl (8.6-10.4); Carbon Dioxide 29 mmol/L (22-30); Chloride 104 mmol/L (96-108); Globulin 2.7 gm/dL (2.2-3.7); Glomerular Filtration Rate 54; Glucose 145 mg/dL (70-105); Lactate Dehydrogenase 250 U/L (94-250); Phosphorous 3.1 mg/dL (2.7-4.5); Triglycerides 117 mg/dl (<150)
[2019-06-19] MEDS: 0.9 % SODIUM CHLORIDE 10 ML SYRINGE IV SCH ×3 (05:42→20:51)
[2019-06-19] MEDS: PIPERACILLIN SODIUM/TAZOBACTAM 3.375 GM in DEXTROSE 5% IN WATER 50 ML IV SCH ×3 (05:42→17:46)
[2019-06-19] MEDS ORDERED: PANTOPRAZOLE 40 MG TABLET PO SCH (07:30)
[2019-06-19] MEDS: INSULIN LISPRO 1 UNIT/0.01 ML UNIT SQ SCH ×4 (07:33→20:48)
[2019-06-19] MEDS: PANTOPRAZOLE 40 MG TABLET PO SCH (07:35)
[2019-06-19] MEDS ORDERED: LABETALOL 5 MG/ML ML IV PRN (07:58)
[2019-06-19] MEDS ORDERED: FERROUS GLUCONATE 324 MG TABLET PO SCH (08:00)
--- NOTE | 2019-06-19 08:03 | Internal Med Progress Note ---
Medical - PN: Subj Patient information: Note initiated : 06/19/19 at 7:53 am Service Date, if different from initiated Date: [] Patient: Parag Monk 89 y/o M admitted on 06/14/19 for Fall. Chief Complaint: [] Interval history: History obtained from patient and family. Patient states he felt fine going to bed last night and felt fine yesterday. In the middle night he up to urinate went to the bathroom came back to bed but was too weak to get into bed and had a controlled fall to the ground scraping his knees on the carpet. He denies any headache fever chills stomach pain diarrhea constipation. When a sked about chest pain he said he did have chest pain in the center before he went to bed while he was sitting in his chair that lasted for several hours and felt better after taking Monie-[place]. He was seen in minor care a month prior for the similar type of chest pain/epigastric pain had a EKG and troponin which were unremarkable. There was some initial concern about confusion but discussion with the family he is never been confused. Per EMS he is quite weak and it sounds like there might of been a low blood pressure obtained by EMS but I do not have the results. In the ED is found to have leukocytosis with elevated lactate level mildly elevated liver enzymes and elevated urine creatinine. Systolic blood pressure in the ER range from 97-124. He received several liters of IV fluids as well as vancomycin and Zosyn. CT abdomen pelvis was obtained which revealed atelectasis large right inguinal hernia and hiatal hernia. It did show cholelithiasis with some gallbladder wall thickening. Gallbladder ultrasound showed cholelithiasis with mild gallbladder wall thickening common bile duct was within normal limits, no mention of pericholecystic fluid. Case was discussed with Dr. Cheung who will review the abdominal imaging. Other than the possible gallbladder no obvious source of infection seen at this time. [id number] bacteremia with E. coli on initial identification. Sensory is pending. Repeat surveillance cultures pending. Procalcitonin 25. ID consulted. MRCP no evidence of biliary obstruction. Patient undergo cholecystectomy likely on Thursday. Echocardiogram awaited. Continue IV antibiotics. De-escalate based on culture sensitivities per ID. T-max 101.3. Lactic acid normalized, white count down from 19.8-13.1, creatinine improved to 1.5 from 1.7. 06/16-patient doing remarkably better. No overnight events during fever chills. White count downtrending. LFTs improving. Due for surgery in 24 hours. 06/17-patient seen postoperatively. No overnight events. Underwent laparoscopic cholecystectomy. Currently under anesthesia sedated. No apparent discomfort. Telemetry sinus rhythm. Nonlabored breathing. No family at bedside. White count 7.3. Creatinine 1.2 with downtrending LFTs 06/18-patient doing a lot better. Postop day 2. No overnight fever chills. Pansensitive E. coli. Anticipate discharge on Thursday with outpatient ant ibiotics for total of 14 days from positive blood culture. Diet advancement as per surgery. Start oral medications for pre-existing medical issues. No overnight events or concerns per staff. No telemetry events. Pain in good control. Intermittent cough but improved wheezing. Postop urine retention status post straight catheterization with minimal trauma. Continue voiding trials 06/19 States poor sleep from interruptions. But overall feeling well. Has some abdominal ache over the incision sites. Having bowel movements. States he is urinating fine. Per the shift engineer nurses oxygen saturations dropped down to the mid 80s on room air while sleeping. Was placed on oxygen. Off this morning while sitting in the chair. Review of Systems: denies headache/fever/chills/nausea/vomiting/chest or abdominal pain/cough/dyspnea/diarrhea. Otherwise see above. - Constitutional Vitals: Vital Signs Temp Pulse Resp BP Pulse Ox 98 F 67 16 143/81 95 06/19/19 04:59 06/19/19 04:59 06/19/19 04:59 06/19/19 04:59 06/19/19 04:59 Period Temp Pulse Resp BP Sys/[place] Pulse Ox Last 24 Hr 98 F-98.5 F 59-88 16-22 137-162/66-81 92-96 Intake and Output 06/18/19 06/19/19 06/19/19 21:59 05:59 13:59 Intake Total 290 50 50 Output Total 2 20 Balance 288 50 30 Weight 98.883 kg Intake & Output: Intake & Output 06/18/19 06/19/19 06/19/19 21:59 05:59 13:59 Intake Total 290 50 50 Output Total 2 20 Balance 288 50 30 Weight 98.883 kg Intake: IV 50 50 50 Zosyn 3.375 gm In Dextrose 5% 50 50 50 in Water 50 ml @ 100 mls/hr IV Q6H [facility] Rx#:[id number] Oral 240 Output: Drainage 20 Right Abdomen SALOME Drain 20 # of times incontinent of urine 2 Other: Urine Color [place] Urine Odor Strong # Voids 1 # Bowel Movements 1 Exam: General: Alert, Awake, No acute Distress, obese Eyes/N/T: EOMI, Head/Neck: neck supple, CV: Reg with ectopic, No murmurs, Pulm: mild rales at bases, diminished at bases, no wheezing Abd: soft, mild TTP, +BS x4 Ext: no clubbing/cyanosis, 1+ b/l LE edema Neuro: Alert, no focal deficits, moves all extremities, Skin: warm/dry Medical - PN: Obj Da - Labs CBC & Chem 7: 06/19/19 04:16 06/19/19 04:16 Labs: Abnormal Lab Results 06/19/19 06/19/19 06/18/19 04:16 04:16 07:15 RBC 3.85 L Hgb 11.0 L Hct 34.6 L Gran % 79.4 H Lymph % (Auto) 11.8 L Lymph # (Auto) 1.1 L Glucose 145 H 128 H Calcium 8.3 L 8.2 L Phosphorus 2.3 L GGT 308 H 186 H AST 92 H 61 H ALT 118 H 98 H Alkaline Phosphatase 258 H 158 H Lactate Dehydrogenase Total Protein 5.7 L Albumin 3.0 L 06/18/19 06/17/19 06/17/19 07:15 03:56 03:56 RBC 4.08 L 4.02 L Hgb 11.6 L 11.8 L Hct 36.4 L 36.1 L Gran % 82.7 H Lymph % (Auto) 9.0 L 14.5 L Lymph # (Auto) 0.8 L 1.1 L Glucose Calcium 8.0 L Phosphorus GGT 194 H AST 76 H ALT 96 H Alkaline Phosphatase 176 H Lactate Dehydrogenase 265 H Total Protein Albumin Meds: Medications Albuterol/Ipratropium (Duoneb) 3 ml NEB Q4HP PRN PRN Reason: Shortness Of Breath Last Admin: 06/18/19 22:10 Dose: 3 ml Documented by: Amlodipine Besylate (Norvasc) 5 mg PO DAILY [facility] Aspirin (Aspirin) 81 mg PO DAILY [facility] Bisoprolol Fumarate (Zebeta) 5 mg PO DAILY [facility] Dextrose (Dextrose 50%) 0 ml IV UD PRN PRN Reason: Hypoglycemia Diagnostic Test (Pha) (Accu-Chek) 1 each FS [facility] Last Admin: 06/19/19 07:32 Dose: 1 each Documented by: Docusate Sodium (Colace) 100 mg PO BID [facility] Last Admin: 06/18/19 22:06 Dose: 100 mg Documented by: Ferrous Gluconate (Fergon) 324 mg PO QAC [facility] Finasteride (Proscar) 5 mg PO QDAY [facility] Glucose (Insta-Glucose) 15 gm PO PRN PRN PRN Reason: Hypoglycemia Hydrochlorothiazide (Oretic) 12.5 mg PO QDAY [facility] Hydromorphone HCl (Dilaudid) 0.25 mg IV Q4HP PRN; Protocol PRN Reason: Per Pain Protocol Potassium Chloride 40 meq/ (Dextrose) 520 mls @ 130 mls/hr IV UD PRN PRN Reason: Potassium < 3 Magnesium Sulfate (Magnesium Sulfate) 2 gm in 50 mls @ 50 mls/hr IV UD PRN PRN Reason: Magnesium </= 1.6 Acetaminophen (Ofirmev) 1,000 mg in 100 mls @ 200 mls/hr IV Q8HP PRN; Protocol PRN Reason: PAIN/FEVER > 101 Piperacillin Sod/Tazobactam (Sod 3.375 gm/ Dextrose) 50 mls @ 100 mls/hr IV Q6H [facility]; Protocol Last Infusion: 06/19/19 07:21 Dose: Infused Documented by: Insulin Human Lispro (Humalog) 0 unit SQ [facility]; Protocol Last Admin: 06/19/19 07:33 Dose: Not Given Documented by: Lactulose (Cephulac) 10 gm PO DAILYP PRN PRN Reason: Constipation Melatonin (Melatonin 3mg Tablet) 3 mg PO HSP PRN PRN Reason: Insomnia Last Admin: 06/18/19 23:37 Dose: 3 mg Documented by: [facility] Last Admin: 06/18/19 17:15 Dose: 750 mg Documented by: Olmesartan (Benicar) 40 mg PO DAILY [facility] Ondansetron HCl (Zofran) 4 mg IV Q4HP PRN PRN Reason: Nausea And Vomiting Pantoprazole Sodium (Protonix) 40 mg PO QAMAC [facility] Last Admin: 06/19/19 07:35 Dose: 40 mg Documented by: Patient Own Medication () 1 dose PO DAILY [facility] Polyethylene Glycol (Miralax) 17 gm PO DAILYP PRN PRN Reason: Constipation Potassium Chloride (Kdur) 40 meq PO UD PRN PRN Reason: Potssium is 3-3.5 Potassium Chloride (Kdur) 40 meq PO UD PRN PRN Reason: Potassium < 3 Senna (Senokot) 2 tab PO HSP PRN PRN Reason: Constipation Simvastatin (Zocor) 20 mg PO HS [facility] Last Admin: 06/18/19 22:06 Dose: 20 mg Documented by: Sodium Chloride (Saline Flush) 10 ml IV Q8 [facility] Last Admin: 06/19/19 05:42 Dose: 10 ml Documented by: Tamsulosin HCl (Flomax) 0.8 mg PO QDAY [facility] Medical - PN: A/P - Time Spent With Patient Total time spent is greater than 50% in coordination of care (as documented) at patient's floor/unit and/or counseling patient: - Narrative A/P Narrative: A: *Acute Cholecystitis: s/p lap celestino (06/17) *E.coli Bacteremia: 2/2 above *Sepsis: 2/2 above. improved -Lactic acidosis resolved *CARLOS on CKD III: volume depletion. Improved *Transaminitis: 2/2 above, improved *DM: *HTN/HLD: *GERD: *BPH w/possible UR: Follows with Dr. Poon -pt feels he is urinating fine currently *hypoxia while sleeping: suspect CAROLINA P: -Abx per ID, 14 day course , deescalate to PO Levaquin -Surg following, diet per Gen Surg -restarted maricruz BB/ARB/CCB/HCTZ -cont flomax/finasteride; voiding trials -SSI, metformin -IS for atelectasis, wean O2 -recommend outpt sleep study, nocturnal pulse ox while here -f/u CXR -pt/ot -ppx: Lovenox/home PPI DNR Medical - PN: Qual - Stroke Symptom Onset Unknown: No - VTE Deep Vein Thrombosis/Pulmonary Embolism Present on Admission: No
[2019-06-19] MEDS: metFORMIN 500 MG TABLET PO SCH ×2 (08:16→17:46)
[2019-06-19] MEDS: FERROUS GLUCONATE 324 MG TABLET PO SCH (08:16)
[2019-06-19] MEDS: amLODIPine 5 MG TABLET PO SCH (08:17)
[2019-06-19] MEDS: TAMSULOSIN 0.4 MG CAPSULE PO SCH (08:17)
[2019-06-19] MEDS: OLMESARTAN MEDOXOMIL 20 MG TABLET PO SCH (08:17)
[2019-06-19] MEDS: DOCUSATE SODIUM 100 MG CAPSULE PO SCH ×2 (08:17→20:50)
[2019-06-19] MEDS: BISOPROLOL 5 MG TABLET PO SCH (08:18)
[2019-06-19] MEDS: FINASTERIDE 5 MG TABLET PO SCH (08:18)
[2019-06-19] MEDS: ASPIRIN 81 MG TAB.CHEW PO SCH (08:18)
[2019-06-19] MEDS: HYDROCHLOROTHIAZIDE 12.5 MG CAPSULE PO SCH (08:18)
[2019-06-19] MEDS: PATIENTS OWN MEDICATION 1 DOSE MISCELL PO SCH (08:19)
[2019-06-19] MEDS ORDERED: ZINC PO SCH (09:00)
[2019-06-19] MEDS ORDERED: VIT E PO SCH (09:00)
[2019-06-19] MEDS ORDERED: VIT C PO SCH (09:00)
[2019-06-19] MEDS ORDERED: VIT A PO SCH (09:00)
[2019-06-19] MEDS ORDERED: HYDROCHLOROTHIAZIDE 12.5 MG CAPSULE PO SCH (09:00)
[2019-06-19] MEDS ORDERED: COPPER PO SCH (09:00)
--- NOTE | 2019-06-19 11:26 | Discharge Summary ---
Medical - DS: Prov Patient information: Note initiated : 06/19/19 at 11:22 am Service Date, if different from initiated Date: [] Patient: Parag Monk 89 y/o M admitted on 06/14/19 for Fall. Chief Complaint: [] Date of admission: 06/14/19 11:53 Discharge date: 06/21/19 Primary care physician: David Mccray Consults: 06/14/19 Consult to Physician [CONS] Stat Comment: Consulting Provider: Yi Cheung Reason For Exam: Physician to Consult 06/14/19 10:40 Consult to Physician [CONS] Stat Comment: Consulting Provider: Donovan Terry Reason For Exam: Physician to Consult 06/14/19 12:11 Consult to Physician [CONS] Routine Comment: ?early cholecystitis Consulting Provider: Yi Cheung Reason For Exam: Physician to Consult Medical - DS: Meds - Discharge Medications Prescriptions: Levofloxacin [Levaquin] 750 mg PO DAILY #3 tab Transmission Status: Pending to [facility] Drug Active and Home Medications: Home Medications Bisoprolol Fumarate 5 mg PO DAILY 05/09/17 [History Confirmed 06/14/19 Last Taken 06/13/19 08:00] Pravastatin [Pravachol] 40 mg PO HS 05/09/17 [History Confirmed 06/14/19 Last Taken 06/13/19 15:00] metFORMIN [Glucophage] 750 mg PO BIDCC 05/09/17 [History Confirmed 06/14/19 Last Taken 06/13/19 15:00] aspirin 81 mg tablet,delayed release 81 mg PO Q2D 10/13/17 [History Confirmed 06/14/19 Last Taken 06/13/19 08:00] pantoprazole 40 mg tablet,delayed release 40 mg PO QDAY 10/13/17 [History Confirmed 06/14/19 Last Taken 06/13/19 08:00] ferrous gluconate 324 mg (37.5 mg iron) tablet 324 mg PO QDAY tab 12/15/17 [History Confirmed 06/14/19 Last Taken 06/13/19 08:00] hydrochlorothiazide 12.5 mg capsule 12.5 mg PO QDAY 05/27/18 [History Confirmed 06/14/19 Last Taken 06/13/19 08:00] telmisartan 80 mg-amlodipine 5 mg tablet 1 tab PO QDAY 05/27/18 [History Confirmed 06/14/19 Last Taken 06/13/19 08:00] finasteride 5 mg tablet 5 mg PO QDAY #30 tab 11/23/18 [Rx Confirmed 06/14/19 Last Taken 06/13/19 08:00] tamsulosin 0.4 mg capsule 0.8 mg PO QDAY #60 cap 11/23/18 [Rx Confirmed 06/14/19 Last Taken 06/13/19 08:00] Vit A/Vit C/Vit E/Zinc/Copper [Icaps Areds Softgel] 1 each PO DAILY 06/14/19 [History Confirmed 06/14/19 Last Taken 06/13/19 08:00] Medical - DS: Hosp Hospital Course: History obtained from patient and family. Patient states he felt fine going to bed last night and felt fine yesterday. In the middle night he up to urinate went to the bathroom came back to bed but was too weak to get into bed and had a controlled fall to the ground scraping his knees on the carpet. He denies any headache fever chills stomach pain diarrhea constipation. When asked about chest pain he said he did have chest pain in the center before he went to bed while he was sitting in his chair that lasted for several hours and felt better after taking Monie-[place]. He was seen in minor care a month prior for the similar type of chest pain/epigastric pain had a EKG and troponin which were unremarkable. There was some initial concern about confusion but discussion with the family he is never been confused. Per EMS he is quite weak and it sounds like there might of been a low blood pressure obtained by EMS but I do not have the results. In the ED is found to have leukocytosis with elevated lactate level mildly elevated liver enzymes and elevated urine creatinine. Systolic blood pressure in the ER range from 97-124. He received several liters of IV fluids as well as vancomycin and Zosyn. CT abdomen pelvis was obtained which revealed atelectasis large right inguinal hernia and hiatal hernia. It did show cholelithiasis with some gallbladder wall thickening. Gallbladder ultrasound showed cholelithiasis with mild gallbladder wall thickening common bile duct was within normal limits, no mention of pericholecystic fluid. Case was discussed with Dr. Cheung who will review the abdominal imaging. Other than the possible gallbladder no obvious source of infection seen at this time. [id number] bacteremia with E. coli on initial identification. Sensory is pending. Repeat surveillance cultures pending. Procalcitonin 25. ID consulted. MRCP no evidence of biliary obstruction. Patient undergo cholecystectomy likely on Thursday. Echocardiogram awaited. Continue IV antibiotics. De-escalate based on culture sensitivities per ID. T-max 101.3. Lactic acid normalized, white count down from 19.8-13.1, creatinine improved to 1.5 from 1.7. 06/16-patient doing remarkably better. No overnight events during fever chills. White count downtrending. LFTs improving. Due for surgery in 24 hours. 06/17-patient seen postoperatively. No overnight events. Underwent laparoscopic cholecystectomy. Currently under anesthesia sedated. No apparent discomfort. Telemetry sinus rhythm. Nonlabored breathing. No family at bedside. White count 7.3. Creatinine 1.2 with downtrending LFTs 06/18-patient doing a lot better. Postop day 2. No overnight fever chills. Pansensitive E. coli. Anticipate discharge on Thursday with outpatient antibiotics for total of 14 days from positive blood culture. Diet advancement as per surgery. Start oral medications for pre-existing medical issues. No overnight events or concerns per staff. No telemetry events. Pain in good control. Intermittent cough but improved wheezing. Postop urine retention status post straight catheterization with minimal trauma. Continue voiding trials 06/19 States poor sleep from interruptions. But overall feeling well. Has some abdominal ache over the incision sites. Having bowel movements. States he is urinating fine. Per the retail shift leader nurses oxygen saturations dropped down to the mid 80s on room air while sleeping. Was placed on oxygen. Off this morning while sitting in the chair. 06/20 Little better last night. No new complaints having bowel movements. Urinating. His drain in place. 06/21 No new complaints. Sleeping better. No red events. SALOME drain putting very little. Transitioned to oral antibiotics. Discharge diagnosis: Acute cholecystitis E. coli bacteremia sepsis acute kidney injury transamin Secondary discharge diagnosis: Diabetes hypertension GERD BPH suspect CAROL[place] - Time Spent with Patient Total time spent providing and/or coordinating discharge services: Greater than 30 minutes Medical - DS: Exam - Constitutional Vitals: Vital Signs Temp Pulse Resp BP BP Pulse Ox 06/19/19 08:00 68 20 166/68 92 06/19/19 04:59 98 F 67 16 143/81 95 06/18/19 23:46 98.5 F 72 20 162/76 94 06/18/19 20:27 98.1 F 71 20 160/78 92 06/18/19 16:00 98.5 F 59 L 18 149/79 93 06/18/19 14:15 96 06/18/19 12:02 98 F 18 137/66 96 Intake and Output 06/18/19 06/19/19 06/19/19 21:59 05:59 13:59 Intake Total 290 50 50 Output Total 2 20 Balance 288 50 30 Intake: IV 50 50 50 Zosyn 3.375 gm In Dextrose 5% 50 50 50 in Water 50 ml @ 100 mls/hr IV Q6H [facility] Rx#:[id number] Oral 240 Output: Drainage 20 Right Abdomen [place]OME Drain 20 # of times incontinent of urine 2 Other: Urine Color [place] Urine Odor Strong # Voids 1 # Bowel Movements 1 Weight 98.883 kg Medical - DS: Data Labs on day of discharge: Labs from last 24 hours 06/19/19 06/19/19 04:16 04:16 WBC 9.4 RBC 3.85 L Hgb 11.0 L Hct 34.6 L MCV 90.0 MCH 28.7 MCHC 31.9 RDW 14.2 Plt Count 222 MPV 8.9 Gran % 79.4 H Lymph % (Auto) 11.8 L [place] % (Auto) 7.0 Eos % (Auto) 1.4 Baso % (Auto) 0.4 Gran # 7.4 Lymph # (Auto) 1.1 L [place] # (Auto) 0.7 Eos # (Auto) 0.1 Baso # (Auto) 0 Sodium 142 Potassium 4.2 Chloride 104 Carbon Dioxide 29 Anion Gap 9.0 BUN 15 Creatinine 1.2 GFR Calculation 54 Glucose 145 H Uric Acid 4.0 Calcium 8.3 L Phosphorus 3.1 Magnesium 1.8 Total Bilirubin 0.4 Direct Bilirubin < 0.2 GGT 308 H AST 92 H ALT 118 H Alkaline Phosphatase 258 H Lactate Dehydrogenase 250 Total Protein 5.7 L Albumin 3.0 L Globulin 2.7 Albumin/Globulin Ratio 1.1 Triglycerides 117 Preliminary micro results at discharge 06/15/19 07:51 Blood Culture - Preliminary Blood 06/15/19 07:44 Blood Culture - Preliminary Blood 06/14/19 06:36 Blood Culture - Preliminary Blood Escherichia coli 06/14/19 06:43 Blood Culture - Preliminary Blood Gram negative bacillus Medical - DS: A/P - Patient/Caregiver Discharge Instructions Activity: as per physical therapy Diet: Regular Diet Additional Instructions: recommend sleep study to evaluate for CAROLINA - Follow up Plan Follow up with: Yi Cheung MD [Physician] - 07/04/19 9:15 am David Mccray MD [Primary Care Provider] - Disposition: Xfer SNF Care Plan Goals: This discharge packet is provided to you to help keep you informed about your care. We want to ensure you get everything you need when you go home. You will also be receiving a call from us in a few days to follow up with you and see how you are doing since your discharge. This gives us a chance to listen to any concerns you maybe experiencing since you were discharged or any additional needs you may have, as well as providing us feedback on your care experience. We strive to always provide excellent care and thank you for your feedback and for choosing [facility]. Prognosis: Fair Rehab Potential: Fair I certify that the patient requires SNF services: Yes Overall status at discharge: patient is progressing back to baseline Medical - DS: Qual - VTE Deep Vein Thrombosis/Pulmonary Embolism Present on Admission: No
--- NOTE | 2019-06-19 13:27 | General Surgery Progress Note ---
Subjective Patient reports: feels better, pain is less, tolerating a regular diet, flatus, bowel movement, afebrile Narrative: Note initiated : 06/19/19 at 1:25 pm Service Date, if different from initiated Date: [] Patient: Parag Monk 89 y/o M admitted on 06/14/19 for Fall. Chief Complaint: [patient basically feels better. He is tolerating diet. He had bowel movements however he still has significant abdominal distention. White blood count 9.4, hemoglobin 11, hematocrit 34.6, BUN 15, creatinine 1.2, GGT 308, AST 92, ALT 118, alkaline phosphatase 258.] Objective Temp Pulse Resp BP Pulse Ox 98 F 68 20 166/68 92 06/19/19 04:59 06/19/19 08:00 06/19/19 08:00 06/19/19 08:00 06/19/19 08:00 - Additional Data Intake & Output - Last 24 hours: Intake & Output 06/17/19 06/18/19 06/19/19 06/20/19 05:59 05:59 05:59 05:59 Intake Total 3120 1490 1230 50 Output Total 204 1255 54 20 Balance 2916 235 1176 30 Weight 217 lb 9.6 oz 218 lb 218 lb - General physical appearance well developed, well nourished, no distress - Eyes PERRL, normal ocular movement - ENT normal pinna, normal nares, normal mucosa, no congestion, decreased hearing - Neck no masses, no bruits, trachea midline, no lymphadenopathy, no venous distension - Respiratory normal expansion, normal respiratory effort, clear to auscultation - Cardiovascular Cardiovascular exam: Present: normal rate and rhythm, RRR, +S1, +S2. Absent: JVD, tachycardia - Abdomen non tender, bowel sounds (present), surgical scars (none), masses (none), diste nded (abdomen is distended with increased tympany; active bowel sounds; tenderness around port sites; serosanguineous drainage. SALOME drains) Hernia: none - Integumentary no rash, no growths, no abnormal pigmentation - Neurologic normal coordination, normal sensation - Psychiatric oriented to time, oriented to person, oriented to place, speech is normal, memory intact - Labs 06/19/19 04:16 06/19/19 04:16 Diabetes panel 06/19/19 Range/Units 04:16 Sodium 142 (133-145) mmol/L Potassium 4.2 (3.3-5.1) mmol/L Chloride 104 (96-108) mmol/L Carbon Dioxide 29 (22-30) mmol/L BUN 15 (8-23) mg/dl Creatinine 1.2 (0.7-1.2) mg/dl Glucose 145 H (70-105) mg/dL Calcium 8.3 L (8.6-10.4) mg/dl AST 92 H (0-37) U/l ALT 118 H (0-40) U/l Alkaline Phosphatase 258 H (39-117) U/L Total Protein 5.7 L (5.9-8.4) gm/dL Albumin 3.0 L (3.2-5.2) gm/dL Triglycerides 117 (<150) mg/dl Calcium panel 06/19/19 Range/Units 04:16 Calcium 8.3 L (8.6-10.4) mg/dl Phosphorus 3.1 (2.7-4.5) mg/dL Albumin 3.0 L (3.2-5.2) gm/dL Pituitary panel 06/19/19 Range/Units 04:16 Sodium 142 (133-145) mmol/L Potassium 4.2 (3.3-5.1) mmol/L Chloride 104 (96-108) mmol/L Carbon Dioxide 29 (22-30) mmol/L BUN 15 (8-23) mg/dl Creatinine 1.2 (0.7-1.2) mg/dl Glucose 145 H (70-105) mg/dL Calcium 8.3 L (8.6-10.4) mg/dl Adrenal panel 06/19/19 Range/Units 04:16 Sodium 142 (133-145) mmol/L Potassium 4.2 (3.3-5.1) mmol/L Chloride 104 (96-108) mmol/L Carbon Dioxide 29 (22-30) mmol/L BUN 15 (8-23) mg/dl Creatinine 1.2 (0.7-1.2) mg/dl Glucose 145 H (70-105) mg/dL Calcium 8.3 L (8.6-10.4) mg/dl Total Bilirubin 0.4 (0.0-1.0) mg/dL AST 92 H (0-37) U/l ALT 118 H (0-40) U/l Alkaline Phosphatase 258 H (39-117) U/L Total Protein 5.7 L (5.9-8.4) gm/dL Albumin 3.0 L (3.2-5.2) gm/dL Assessment and Plan (1) Elevated liver enzymes Status: Acute Assessment and plan: Stable status post laparoscopic cholecystectomy Check hepatitis panel Current Visit: Yes (2) Cholelithiasis and acute cholecystitis without obstruction Status: Acute Assessment and plan: As noted above Current Visit: Yes (3) Essential (primary) hypertension Status: Chronic Current Visit: No (4) Nonrheumatic aortic valve stenosis Status: Chronic Current Visit: No (5) Type 2 diabetes mellitus without complication Status: Chronic Current Visit: No (6) Bacteremia due to Gram-negative bacteria Status: Resolved Current Visit: Yes - Time Spent With Patient Total time spent is greater than 50% in coordination of care (as documented) at patient's floor/unit and/or counseling patient:
--- NOTE | 2019-06-19 14:26 | XRay Report ---
CLINICAL INFORMATION: hypoxia, ?fluid overload COMPARISON: 06/16/2019 FINDINGS: Moderate hiatal hernia again noted. The heart is mildly enlarged, but stable. The remaining mediastinum and pulmonary vessels are unremarkable. No edema or infiltrates. There is minor bibasilar atelectasis. Small bilateral pleural effusions noted IMPRESSION: Small bilateral pleural effusions increasing from comparison x-ray three days ago. No evidence however, of CHF Moderate hiatal hernia - stable Interpreted and Authenticated by: Otto Dominique 06/19/19
[2019-06-19 15:19] LABS: Hepatitis B Surface Antigen NEGATIVE (NEGATIVE); Hepatitis C Virus Antibody NON REACTIVE (NEGATIVE)
[2019-06-19] MEDS: MAGNESIUM HYDROXIDE 30 ML ORAL.SUSP PO SCH ×2 (19:04→20:56)
[2019-06-19] MEDS: SIMVASTATIN 20 MG TABLET PO SCH (20:50)
[2019-06-20] MEDS: PIPERACILLIN SODIUM/TAZOBACTAM 3.375 GM in DEXTROSE 5% IN WATER 50 ML IV SCH ×2 (00:44→05:45)
[2019-06-20] MEDS: MAGNESIUM HYDROXIDE 30 ML ORAL.SUSP PO SCH (00:48)
[2019-06-20] MEDS: 0.9 % SODIUM CHLORIDE 10 ML SYRINGE IV SCH ×3 (05:45→21:43)
[2019-06-20] MEDS ORDERED: ALBUMIN HUMAN 12.5 GM/50 ML BAG IV ONE (07:10)
[2019-06-20] MEDS ORDERED: FUROSEMIDE 40 MG/4 ML VIAL IV ONE (07:10)
--- NOTE | 2019-06-20 07:11 | Internal Med Progress Note ---
Medical - PN: Subj Patient information: Note initiated : 06/20/19 at 7:07 am Service Date, if different from initiated Date: [] Patient: Parag Monk 89 y/o M admitted on 06/14/19 for Fall. Chief Complaint: [] Interval history: History obtained from patient and family. Patient states he felt fine going to bed last night and felt fine yesterday. In the middle night he up to urinate went to the bathroom came back to bed but was too weak to get into bed and had a controlled fall to the ground scraping his knees on the carpet. He denies any headache fever chills stomach pain diarrhea constipation. When a sked about chest pain he said he did have chest pain in the center before he went to bed while he was sitting in his chair that lasted for several hours and felt better after taking [place]. He was seen in minor care a month prior for the similar type of chest pain/epigastric pain had a EKG and troponin which were unremarkable. There was some initial concern about confusion but discussion with the family he is never been confused. Per EMS he is quite weak and it sounds like there might of been a low blood pressure obtained by EMS but I do not have the results. In the ED is found to have leukocytosis with elevated lactate level mildly elevated liver enzymes and elevated urine creatinine. Systolic blood pressure in the ER range from 97-124. He received several liters of IV fluids as well as vancomycin and Zosyn. CT abdomen pelvis was obtained which revealed atelectasis large right inguinal hernia and hiatal hernia. It did show cholelithiasis with some gallbladder wall thickening. Gallbladder ultrasound showed cholelithiasis with mild gallbladder wall thickening common bile duct was within normal limits, no mention of pericholecystic fluid. Case was discussed with Dr. Cheung who will review the abdominal imaging. Other than the possible gallbladder no obvious source of infection seen at this time. 06/150-[id number] bacteremia with E. coli on initial identification. Sensory is pending. Repeat surveillance cultures pending. Procalcitonin 25. ID consulted. MRCP no evidence of biliary obstruction. Patient undergo cholecystectomy likely on Thursday. Echocardiogram awaited. Continue IV antibiotics. De-escalate based on culture sensitivities per ID. T-max 101.3. Lactic acid normalized, white count down from 19.8-13.1, creatinine improved to 1.5 from 1.7. 06/16-patient doing remarkably better. No overnight events during fever chills. White count downtrending. LFTs improving. Due for surgery in 24 hours. 06/17-patient seen postoperatively. No overnight events. Underwent laparoscopic cholecystectomy. Currently under anesthesia sedated. No apparent discomfort. Telemetry sinus rhythm. Nonlabored breathing. No family at bedside. White count 7.3. Creatinine 1.2 with downtrending LFTs 06/18-patient doing a lot better. Postop day 2. No overnight fever chills. Pansensitive E. coli. Anticipate discharge on Thursday with outpatient ant ibiotics for total of 14 days from positive blood culture. Diet advancement as per surgery. Start oral medications for pre-existing medical issues. No overnight events or concerns per staff. No telemetry events. Pain in good control. Intermittent cough but improved wheezing. Postop urine retention status post straight catheterization with minimal trauma. Continue voiding trials 06/19 States poor sleep from interruptions. But overall feeling well. Has some abdominal ache over the incision sites. Having bowel movements. States he is urinating fine. Per the shift leader nurses oxygen saturations dropped down to the mid 80s on room air while sleeping. Was placed on oxygen. Off this morning while sitting in the chair. 06/20 Little better last night. No new complaints having bowel movements. Urinating. His drain in place. Review of Systems: denies headache/fever/chills/nausea/vomiting/chest or abdominal pain/cough/dyspnea/diarrhea. Otherwise see above. - Constitutional Vitals: Vital Signs Temp Pulse Resp BP Pulse Ox 98 F 67 18 136/80 96 06/20/19 04:39 06/20/19 04:39 06/20/19 04:39 06/20/19 04:39 06/20/19 04:39 Period Temp Pulse Resp BP Sys/[place] Pulse Ox Last 24 Hr 97.9 F-98.6 F 67-80 18-22 136-166/68-81 88-96 Intake and Output 06/19/19 06/20/19 06/20/19 21:59 05:59 13:59 Intake Total 890 250 Output Total 3 28 Balance 887 222 Weight 99.337 kg Intake & Output: Intake & Output 06/19/19 06/20/19 06/20/19 21:59 05:59 13:59 Intake Total 890 250 Output Total 3 28 Balance 887 222 Weight 99.337 kg Intake: IV 50 50 Zosyn 3.375 gm In Dextrose 5% 50 50 in Water 50 ml @ 100 mls/hr IV Q6H [facility] Rx#:[id number] Oral 840 200 Output: Drainage 25 Right Abdomen SALOME Drain 25 # of times incontinent of urine 3 3 Other: Meal Dinner Percent of Meal Consumed 50% Feeding Ability Independent Urine Appearance Large Blood Clots Urine Color Blood Tinged Stool Size Large Moderate Stool Color Brown Brown Stool Consistency Loose Loose # Voids 1 # Bowel Movements 1 # of times incontinent of 1 Bowels Exam: General: Alert, Awake, No acute Distress, obese Eyes/N/T: EOMI, Head/Neck: neck supple, CV: Reg with ectopic, No murmurs, Pulm: mild rales at bases, diminished at bases, no wheezing Abd: soft, mild TTP, +BS x4, SALOME drain in place Ext: no clubbing/cyanosis, 1+ b/l LE edema Neuro: Alert, no focal deficits, moves all extremities, Skin: warm/dry Medical - PN: Obj Da - Labs CBC & Chem 7: 06/19/19 04:16 06/19/19 04:16 Labs: Abnormal Lab Results 06/19/19 06/19/19 06/18/19 04:16 04:16 07:15 RBC 3.85 L Hgb 11.0 L Hct 34.6 L Gran % 79.4 H Lymph % (Auto) 11.8 L Lymph # (Auto) 1.1 L Glucose 145 H 128 H Calcium 8.3 L 8.2 L Phosphorus 2.3 L GGT 308 H 186 H AST 92 H 61 H ALT 118 H 98 H Alkaline Phosphatase 258 H 158 H Total Protein 5.7 L Albumin 3.0 L 06/18/19 07:15 RBC 4.08 L Hgb 11.6 L Hct 36.4 L Gran % 82.7 H Lymph % (Auto) 9.0 L Lymph # (Auto) 0.8 L Glucose Calcium Phosphorus GGT AST ALT Alkaline Phosphatase Total Protein Albumin Meds: Medications Albuterol/Ipratropium (Duoneb) 3 ml NEB Q4HP PRN PRN Reason: Shortness Of Breath Last Admin: 06/18/19 22:10 Dose: 3 ml Documented by: Amlodipine Besylate (Norvasc) 5 mg PO DAILY [facility] Last Admin: 06/19/19 08:17 Dose: 5 mg Documented by: Aspirin (Aspirin) 81 mg PO DAILY [facility] Last Admin: 06/19/19 08:18 Dose: 81 mg Documented by: Bisoprolol Fumarate (Zebeta) 5 mg PO DAILY [facility] Last Admin: 06/19/19 08:18 Dose: 5 mg Documented by: Dextrose (Dextrose 50%) 0 ml IV UD PRN PRN Reason: Hypoglycemia Diagnostic Test (Pha) (Accu-Chek) 1 each FS ACHS [facility] Last Admin: 06/19/19 20:50 Dose: 1 each Documented by: Docusate Sodium (Colace) 100 mg PO BID [facility] Last Admin: 06/19/19 20:50 Dose: 100 mg Documented by: Ferrous Gluconate (Fergon) 324 mg PO [facility] Last Admin: 06/19/19 08:16 Dose: 324 mg Documented by: Finasteride (Proscar) 5 mg PO QDAY [facility] Last Admin: 06/19/19 08:18 Dose: 5 mg Documented by: Glucose (Insta-Glucose) 15 gm PO PRN PRN PRN Reason: Hypoglycemia Hydrochlorothiazide (Oretic) 12.5 mg PO QDAY [facility] Last Admin: 06/19/19 08:18 Dose: 12.5 mg Documented by: Hydromorphone HCl (Dilaudid) 0.25 mg IV Q4HP PRN; Protocol PRN Reason: Per Pain Protocol Potassium Chloride 40 meq/ (Dextrose) 520 mls @ 130 mls/hr IV UD PRN PRN Reason: Potassium < 3 Magnesium Sulfate (Magnesium Sulfate) 2 gm in 50 mls @ 50 mls/hr IV UD PRN PRN Reason: Magnesium </= 1.6 Acetaminophen (Ofirmev) 1,000 mg in 100 mls @ 200 mls/hr IV Q8HP PRN; Protocol PRN Reason: PAIN/FEVER > 101 Piperacillin Sod/Tazobactam (Sod 3.375 gm/ Dextrose) 50 mls @ 100 mls/hr IV Q6H [facility]; Protocol Last Admin: 06/20/19 05:45 Dose: 100 mls/hr Documented by: Insulin Human Lispro (Humalog) 0 unit SQ ACHS [facility]; Protocol Last Admin: 06/19/19 20:48 Dose: 2 units Documented by: Labetalol HCl (Trandate) 10 - 20 mg IV Q2HP PRN PRN Reason: Hypertension Lactulose (Cephulac) 10 gm PO DAILYP PRN PRN Reason: Constipation Melatonin (Melatonin 3mg Tablet) 3 mg PO HSP PRN PRN Reason: Insomnia Last Admin: 06/18/19 23:37 Dose: 3 mg Documented by: Metformin HCl (Glucophage) 750 mg PO BIDCC [facility] Last Admin: 06/19/19 17:46 Dose: 750 mg Documented by: Olmesartan (Benicar) 40 mg PO DAILY [facility] Last Admin: 06/19/19 08:17 Dose: 40 mg Documented by: Ondansetron HCl (Zofran) 4 mg IV Q4HP PRN PRN Reason: Nausea And Vomiting Pantoprazole Sodium (Protonix) 40 mg PO QAMAC [facility] Last Admin: 06/19/19 07:35 Dose: 40 mg Documented by: Patient Own Medication () 1 dose PO DAILY [facility] Last Admin: 06/19/19 08:19 Dose: Not Given Documented by: Polyethylene Glycol (Miralax) 17 gm PO DAILYP PRN PRN Reason: Constipation Potassium Chloride (Kdur) 40 meq PO UD PRN PRN Reason: Potssium is 3-3.5 Potassium Chloride (Kdur) 40 meq PO UD PRN PRN Reason: Potassium < 3 Senna (Senokot) 2 tab PO HSP PRN PRN Reason: Constipation Simvastatin (Zocor) 20 mg PO HS [facility] Last Admin: 06/19/19 20:50 Dose: 20 mg Documented by: Sodium Chloride (Saline Flush) 10 ml IV Q8 [facility] Last Admin: 06/20/19 05:45 Dose: 10 ml Documented by: Tamsulosin HCl (Flomax) 0.8 mg PO QDAY [facility] Last Admin: 06/19/19 08:17 Dose: 0.8 mg Documented by: Medical - PN: A/P - Time Spent With Patient Total time spent is greater than 50% in coordination of care (as documented) at patient's floor/unit and/or counseling patient: - Narrative A/P Narrative: A: *Acute Cholecystitis: s/p lap celestino (06/17) *E.coli Bacteremia: 2/2 above *Sepsis: 2/2 above. improved -Lactic acidosis resolved *CARLOS on CKD III: volume depletion. Improved *Transaminitis: 2/2 above, improved *DM: *HTN/HLD: *GERD: *BPH w/possible UR: Follows with Dr. Poon -pt feels he is urinating fine currently *hypoxia while sleeping: suspect [place] -CXR no CHF/infiltrate, small b/l pleural effusions P: -Abx per ID, 14 day course , deescalate to PO Levaquin -Surg following, diet per Gen Surg -SALOME drain in place -restarted maricruz BB/ARB/CCB/HCTZ -cont flomax/finasteride; voiding trials -SSI, metformin -IS for atelectasis, wean O2 -recommend outpt sleep study, nocturnal pulse ox while here -SNF placement -pt/ot -ppx: Lovenox/home PPI DNR Medical - PN: Qual - Stroke Symptom Onset Unknown: No - VTE Deep Vein Thrombosis/Pulmonary Embolism Present on Admission: No
[2019-06-20] MEDS ORDERED: MAGNESIUM HYDROXIDE 30 ML ORAL.SUSP PO SCH (09:00)
[2019-06-20] MEDS: INSULIN LISPRO 1 UNIT/0.01 ML UNIT SQ SCH ×4 (09:31→21:43)
[2019-06-20] MEDS: PANTOPRAZOLE 40 MG TABLET PO SCH (09:32)
[2019-06-20] MEDS: OLMESARTAN MEDOXOMIL 20 MG TABLET PO SCH (09:39)
[2019-06-20] MEDS: TAMSULOSIN 0.4 MG CAPSULE PO SCH (09:41)
[2019-06-20] MEDS: HYDROCHLOROTHIAZIDE 12.5 MG CAPSULE PO SCH (09:41)
[2019-06-20] MEDS: ASPIRIN 81 MG TAB.CHEW PO SCH (09:42)
[2019-06-20] MEDS: metFORMIN 500 MG TABLET PO SCH ×2 (09:42→17:48)
[2019-06-20] MEDS: BISOPROLOL 5 MG TABLET PO SCH (09:44)
[2019-06-20] MEDS: amLODIPine 5 MG TABLET PO SCH (09:44)
[2019-06-20] MEDS: FERROUS GLUCONATE 324 MG TABLET PO SCH (09:44)
[2019-06-20] MEDS: FINASTERIDE 5 MG TABLET PO SCH (09:44)
[2019-06-20] MEDS: ENOXAPARIN 40 MG/0.4 ML SYRINGE SQ SCH (09:49)
[2019-06-20] MEDS: DOCUSATE SODIUM 100 MG CAPSULE PO SCH ×2 (11:51→21:43)
[2019-06-20] MEDS: PATIENTS OWN MEDICATION 1 DOSE MISCELL PO SCH (11:52)
--- NOTE | 2019-06-20 12:42 | Surgical Pathology Report ---
HISTOLOGY SPECIMEN MICROSCOPIC DIAGNOSIS GALLBLADDER, CHOLECYSTECTOMY: -- ACUTE AND CHRONIC CHOLECYSTITIS. -- CHOLELITHIASIS. -- PERICYSTIC LYMPH NODE WITH REACTIVE FOLLICULAR HYPERPLASIA. (DMT:[email or web address]) PROCEDURAL IMPRESSION Cholelithiasis and acute cholecystitis. GROSS DESCRIPTION Received in formalin labeled gallbladder, is a purple-case gallbladder that measures 8 x 4.2 x 1.6 cm. There are multiple clips identified including one on the duct. Near the duct there is a firm gilmore nodule that measures 1 x 0.7 x 0.3 cm. The specimen contains viscous green fluid and multiple black stones from less than 0.1 to 0.5 cm. The mucosa is pink, gilmore and rough surfaced. The wall is up to 0.3 cm thick. Education Program Manager sections are submitted - one cassette. (SCB:sergio) Electronically Signed by: David Larkin M.D.
--- NOTE | 2019-06-20 16:39 | General Surgery Progress Note ---
Subjective Patient reports: no new complaints, feels better, pain is less (he is), tolerating liquids well, flatus, bowel movement, afebrile Narrative: Note initiated : 06/20/19 at 4:38 pm Service Date, if different from initiated Date: [] Patient: Parag Monk 89 y/o M admitted on 06/14/19 for Fall. Chief Complaint: [Patient states that he feels better. He denies nausea. He is having copious flatus and having bowel movements. His abdomen is a lot softer and less distended.] Objective Temp Pulse Resp BP Pulse Ox 98.0 F 73 16 135/70 93 06/20/19 12:00 06/20/19 12:00 06/20/19 12:00 06/20/19 12:00 06/20/19 12:00 - Additional Data Intake & Output - Last 24 hours: Intake & Output 06/18/19 06/19/19 06/20/19 06/21/19 05:59 05:59 05:59 05:59 Intake Total 1490 1230 1240 460 Output Total 1255 54 51 1 Balance 235 1176 1189 459 Weight 218 lb 218 lb 219 lb - General physical appearance well developed, well nourished, no distress - Eyes PERRL, normal ocular movement - ENT normal pinna, normal nares, normal mucosa, no congestion, decreased hearing - Neck no masses, no bruits, trachea midline, no lymphadenopathy, no venous distension - Respiratory normal expansion, normal respiratory effort, clear to auscultation - Cardiovascular Cardiovascular exam: Present: normal rate and rhythm, RRR, +S1, +S2. Absent: JVD, tachycardia - Abdomen non tender, bowel sounds (present), surgical scars (none), masses (none), distended (abdomen is much less distended with good active bowel sounds) - Rectum normal sphincter tone, no hemorrhoids, no tenderness, no masses, no bleeding - Integumentary no rash, no growths, no abnormal pigmentation - Musculoskeletal normal gait, normal posture - Psychiatric oriented to time, oriented to person, oriented to place, speech is normal, memory intact - Labs 06/19/19 04:16 06/19/19 04:16 Assessment and Plan (1) Elevated liver enzymes Status: Acute Assessment and plan: Hepatitis panel is negative Current Visit: Yes (2) Cholelithiasis and acute cholecystitis without obstruction Status: Resolved Assessment and plan: As noted above Current Visit: Yes (3) Essential (primary) hypertension Status: Chronic Current Visit: No (4) Nonrheumatic aortic valve stenosis Status: Chronic Current Visit: No (5) Type 2 diabetes mellitus without complication Status: Chronic Current Visit: No (6) Bacteremia due to Gram-negative bacteria Status: Resolved Current Visit: Yes - Time Spent With Patient Total time spent is greater than 50% in coordination of care (as documented) at patient's floor/unit and/or counseling patient:
[2019-06-20] MEDS: SIMVASTATIN 20 MG TABLET PO SCH (21:42)
[2019-06-21 06:51] LABS: Basophils # (Auto) 0 K/mcL (0.0-0.3); Basophils % (Auto) 0.3 % (0.0-2.0); Eosinophils # (Auto) 0.2 K/mcL (0.0-0.7); Eosinophils % (Auto) 2.5 % (0.0-7.0); Granulocytes % (Auto) 72.1 % (38.0-78.0); Hematocrit 33.7 % (41.0-55.0); Lymphocytes # (Auto) 1.6 K/mcL (1.5-4.8); Lymphocytes % (Auto) 16.8 % (15.5-49.0); Mean Cell Volume 88.8 fL (80.0-100.0); Mean Corpuscular HGB Conc 32.8 g/dL (31.0-36.0); Monocytes # (Auto) 0.8 K/mcL (0.1-0.9); Monocytes % (Auto) 8.3 % (1.0-12.0); Platelet Count 242 K/mcL (140-440); RBC 3.79 M/mcL (4.50-5.90); Red Cell Distribution Width 14.4 % (11.5-14.5); WBC 9.4 K/mcL (4.5-11.0)
[2019-06-21] MEDS: PANTOPRAZOLE 40 MG TABLET PO SCH (07:09)
[2019-06-21] MEDS: 0.9 % SODIUM CHLORIDE 10 ML SYRINGE IV SCH ×2 (07:10→13:34)
[2019-06-21 07:13] LABS: ALT/SGPT 100 U/l (0-40); AST/SGOT 48 U/l (0-37); Albumin 3.2 gm/dL (3.2-5.2); Albumin/Globulin Ratio 1.1 (1.0-2.3); Alkaline Phosphatase 589 U/L (39-117); Bilirubin,Direct < 0.2 mg/dL (0.0-0.3); Bilirubin,Total 0.5 mg/dL (0.0-1.0); Blood Urea Nitrogen 16 mg/dl (8-23); Calcium 8.7 mg/dl (8.6-10.4); Carbon Dioxide 30 mmol/L (22-30); Chloride 100 mmol/L (96-108); Globulin 2.9 gm/dL (2.2-3.7); Glomerular Filtration Rate 54; Glucose 104 mg/dL (70-105); Lactate Dehydrogenase 266 U/L (94-250); Phosphorous 2.8 mg/dL (2.7-4.5); Triglycerides 179 mg/dl (<150); Uric Acid 5.3 mg/dL (2.5-8.0)
[2019-06-21] MEDS ORDERED: FUROSEMIDE 40 MG/4 ML VIAL IV ONE (07:53)
[2019-06-21] MEDS ORDERED: MAGNESIUM SULFATE 8.12 MEQ in DEXTROSE 5% IN WATER 50 ML IV ONE (07:56)
--- NOTE | 2019-06-21 07:56 | Internal Med Progress Note ---
Medical - PN: Subj Patient information: Note initiated : 06/21/19 at 7:50 am Service Date, if different from initiated Date: [] Patient: Parag Monk 89 y/o M admitted on 06/14/19 for Fall. Chief Complaint: [] Interval history: History obtained from patient and family. Patient states he felt fine going to bed last night and felt fine yesterday. In the middle night he up to urinate went to the bathroom came back to bed but was too weak to get into bed and had a controlled fall to the ground scraping his knees on the carpet. He denies any headache fever chills stomach pain diarrhea constipation. When a sked about chest pain he said he did have chest pain in the center before he went to bed while he was sitting in his chair that lasted for several hours and felt better after taking [facility]. He was seen in minor care a month prior for the similar type of chest pain/epigastric pain had a EKG and troponin which were unremarkable. There was some initial concern about confusion but discussion with the family he is never been confused. Per EMS he is quite weak and it sounds like there might of been a low blood pressure obtained by EMS but I do not have the results. In the ED is found to have leukocytosis with elevated lactate level mildly elevated liver enzymes and elevated urine creatinine. Systolic blood pressure in the ER range from 97-124. He received several liters of IV fluids as well as vancomycin and Zosyn. CT abdomen pelvis was obtained which revealed atelectasis large right inguinal hernia and hiatal hernia. It did show cholelithiasis with some gallbladder wall thickening. Gallbladder ultrasound showed cholelithiasis with mild gallbladder wall thickening common bile duct was within normal limits, no mention of pericholecystic fluid. Case was discussed with Dr. Cheung who will review the abdominal imaging. Other than the possible gallbladder no obvious source of infection seen at this time. 06/[id number] bacteremia with E. coli on initial identification. Sensory is pending. Repeat surveillance cultures pending. Procalcitonin 25. ID consulted. MRCP no evidence of biliary obstruction. Patient undergo cholecystectomy likely on Thursday. Echocardiogram awaited. Continue IV antibiotics. De-escalate based on culture sensitivities per ID. T-max 101.3. Lactic acid normalized, white count down from 19.8-13.1, creatinine improved to 1.5 from 1.7. 06/16-patient doing remarkably better. No overnight events during fever chills. White count downtrending. LFTs improving. Due for surgery in 24 hours. 06/17-patient seen postoperatively. No overnight events. Underwent laparoscopic cholecystectomy. Currently under anesthesia sedated. No apparent discomfort. Telemetry sinus rhythm. Nonlabored breathing. No family at bedside. White count 7.3. Creatinine 1.2 with downtrending LFTs 06/18-patient doing a lot better. Postop day 2. No overnight fever chills. Pansensitive E. coli. Anticipate discharge on Thursday with outpatient ant ibiotics for total of 14 days from positive blood culture. Diet advancement as per surgery. Start oral medications for pre-existing medical issues. No overnight events or concerns per staff. No telemetry events. Pain in good control. Intermittent cough but improved wheezing. Postop urine retention status post straight catheterization with minimal trauma. Continue voiding trials 06/19 States poor sleep from interruptions. But overall feeling well. Has some abdominal ache over the incision sites. Having bowel movements. States he is urinating fine. Per the maintenance technician 2nd shift nurses oxygen saturations dropped down to the mid 80s on room air while sleeping. Was placed on oxygen. Off this morning while sitting in the chair. 06/20 Little better last night. No new complaints having bowel movements. Urinating. His drain in place. 06/21 No new complaints. Sleeping better. No red events. SALOME drain putting very little. Transitioned to oral antibiotics. Review of Systems: denies headache/fever/chills/nausea/vomiting/chest or abdominal pain/cough/dyspnea/diarrhea. Otherwise see above. - Constitutional Vitals: Vital Signs Temp Pulse Resp BP Pulse Ox 97.4 F 63 22 139/70 94 06/21/19 07:16 06/21/19 07:16 06/21/19 07:16 06/21/19 07:16 06/21/19 07:16 Period Temp Pulse Resp BP Sys/Mesa Pulse Ox Last 24 Hr 97.4 F-98.5 F 63-78 16-24 118-142/67-71 93-96 Intake and Output 06/20/19 06/21/19 06/21/19 21:59 05:59 13:59 Intake Total 200 Output Total 54 15 0 Balance -54 185 0 Weight 99.427 kg Intake & Output: Intake & Output 06/20/19 06/21/19 06/21/19 21:59 05:59 13:59 Intake Total 200 Output Total 54 15 0 Balance -54 185 0 Weight 99.427 kg Intake: Oral 200 Output: Drainage 15 0 Right Abdomen SALOME Drain 15 0 Void Amount 50 # of times incontinent of urine 3 Stool 1 Other: Urine Color Blood Tinged Stool Size Small Moderate Stool Color Brown Yellow Green Stool Consistency Liquid Soft Watery Liquid Loose # Voids 1 1 # Bowel Movements 1 # of times incontinent of 2 1 Bowels Exam: General: Alert, Awake, No acute Distress, obese Eyes/N/T: EOMI, Head/Neck: neck supple, CV: Reg with ectopic, No murmurs, Pulm: mild rales at bases, diminished at bases, no wheezing Abd: soft, mild TTP, +BS x4, SALOME drain in place Ext: no clubbing/cyanosis, 1+ b/l LE edema Neuro: Alert, no focal deficits, moves all extremities, Skin: warm/dry Medical - PN: Obj Da - Labs CBC & Chem 7: 06/21/19 04:40 06/21/19 04:40 Labs: Abnormal Lab Results 06/21/19 06/21/19 06/19/19 04:40 04:40 04:16 RBC 3.79 L Hgb 11.0 L Hct 33.7 L Gran % Lymph % (Auto) Lymph # (Auto) Glucose 145 H Calcium 8.3 L Phosphorus Magnesium 1.4 L GGT 637 H 308 H AST 48 H 92 H ALT 100 H 118 H Alkaline Phosphatase 589 H 258 H Lactate Dehydrogenase 266 H Total Protein 5.7 L Albumin 3.0 L Triglycerides 179 H 06/19/19 06/18/19 06/18/19 04:16 07:15 07:15 RBC 3.85 L 4.08 L Hgb 11.0 L 11.6 L Hct 34.6 L 36.4 L Gran % 79.4 H 82.7 H Lymph % (Auto) 11.8 L 9.0 L Lymph # (Auto) 1.1 L 0.8 L Glucose 128 H Calcium 8.2 L Phosphorus 2.3 L Magnesium GGT 186 H AST 61 H ALT 98 H Alkaline Phosphatase 158 H Lactate Dehydrogenase Total Protein Albumin Triglycerides Meds: Medications Albuterol/Ipratropium (Duoneb) 3 ml NEB Q4HP PRN PRN Reason: Shortness Of Breath Last Admin: 06/18/19 22:10 Dose: 3 ml Documented by: Amlodipine Besylate (Norvasc) 5 mg PO DAILY [facility] Last Admin: 06/20/19 09:44 Dose: 5 mg Documented by: Aspirin (Aspirin) 81 mg PO DAILY [facility] Last Admin: 06/20/19 09:42 Dose: 81 mg Documented by: Bisoprolol Fumarate (Zebeta) 5 mg PO DAILY [facility] Last Admin: 06/20/19 09:44 Dose: 5 mg Documented by: Dextrose (Dextrose 50%) 0 ml IV UD PRN PRN Reason: Hypoglycemia Diagnostic Test (Pha) (Accu-Chek) 1 each FS ACHS [facility] Last Admin: 06/20/19 21:41 Dose: 1 each Documented by: Docusate Sodium (Colace) 100 mg PO BID [facility] Last Admin: 06/20/19 21:43 Dose: Not Given Documented by: Enoxaparin Sodium (Lovenox) 40 mg SQ DAILY [facility] Last Admin: 06/20/19 09:49 Dose: 40 mg Documented by: Ferrous Gluconate (Fergon) 324 mg PO [facility] Last Admin: 06/20/19 09:44 Dose: 324 mg Documented by: Finasteride (Proscar) 5 mg PO QDAY [facility] Last Admin: 06/20/19 09:44 Dose: 5 mg Documented by: Glucose (Insta-Glucose) 15 gm PO PRN PRN PRN Reason: Hypoglycemia Hydrochlorothiazide (Oretic) 12.5 mg PO QDAY [facility] Last Admin: 06/20/19 09:41 Dose: 12.5 mg Documented by: Hydromorphone HCl (Dilaudid) 0.25 mg IV Q4HP PRN; Protocol PRN Reason: Per Pain Protocol Potassium Chloride 40 meq/ (Dextrose) 520 mls @ 130 mls/hr IV UD PRN PRN Reason: Potassium < 3 Magnesium Sulfate (Magnesium Sulfate) 2 gm in 50 mls @ 50 mls/hr IV UD PRN PRN Reason: Magnesium </= 1.6 Acetaminophen (Ofirmev) 1,000 mg in 100 mls @ 200 mls/hr IV Q8HP PRN; Protocol PRN Reason: PAIN/FEVER > 101 Insulin Human Lispro (Humalog) 0 unit SQ ACHS [facility]; Protocol Last Admin: 06/20/19 21:43 Dose: Not Given Documented by: Labetalol HCl (Trandate) 10 - 20 mg IV Q2HP PRN PRN Reason: Hypertension Lactulose (Cephulac) 10 gm PO DAILYP PRN PRN Reason: Constipation Levofloxacin (Levaquin) 750 mg PO DAILY [facility]; Protocol Melatonin (Melatonin 3mg Tablet) 3 mg PO HSP PRN PRN Reason: Insomnia Last Admin: 06/18/19 23:37 Dose: 3 mg Documented by: Metformin HCl (Glucophage) 750 mg PO BIDCC [facility] Last Admin: 06/20/19 17:48 Dose: 750 mg Documented by: Olmesartan (Benicar) 40 mg PO DAILY [facility] Last Admin: 06/20/19 09:39 Dose: 40 mg Documented by: Ondansetron HCl (Zofran) 4 mg IV Q4HP PRN PRN Reason: Nausea And Vomiting Pantoprazole Sodium (Protonix) 40 mg PO QAMAC [facility] Last Admin: 06/21/19 07:09 Dose: 40 mg Documented by: Patient Own Medication () 1 dose PO DAILY [facility] Last Admin: 06/20/19 11:52 Dose: Not Given Documented by: Polyethylene Glycol (Miralax) 17 gm PO DAILYP PRN PRN Reason: Constipation Potassium Chloride (Kdur) 40 meq PO UD PRN PRN Reason: Potssium is 3-3.5 Potassium Chloride (Kdur) 40 meq PO UD PRN PRN Reason: Potassium < 3 Senna (Senokot) 2 tab PO HSP PRN PRN Reason: Constipation Simvastatin (Zocor) 20 mg PO HS [facility] Last Admin: 06/20/19 21:42 Dose: 20 mg Documented by: Sodium Chloride (Saline Flush) 10 ml IV Q8 [facility] Last Admin: 06/21/19 07:10 Dose: 10 ml Documented by: Tamsulosin HCl (Flomax) 0.8 mg PO QDAY [facility] Last Admin: 06/20/19 09:41 Dose: 0.8 mg Documented by: Medical - PN: A/P - Time Spent With Patient Total time spent is greater than 50% in coordination of care (as documented) at patient's floor/unit and/or counseling patient: - Narrative A/P Narrative: A: *Acute Cholecystitis: s/p lap celestino (06/17) *E.coli Bacteremia: 2/2 above *Sepsis: 2/2 above. improved -Lactic acidosis resolved *CARLOS on CKD III: volume depletion. Improved *Transaminitis: 2/2 above, improved *DM: *HTN/HLD: *GERD: *BPH w/possible UR: Follows with Dr. Poon -pt feels he is urinating fine currently *hypoxia while sleeping: suspect CAROLINA -CXR no CHF/infiltrate, small b/l pleural effusions P: -d/w with ID, 10 day course, currently on PO Levaquin -Surg following, diet per Gen Surg -SALOME drain in place -restarted maricruz BB/ARB/CCB/HCTZ -cont flomax/finasteride; -SSI, metformin -IS for atelectasis, wean O2 -recommend outpt sleep study -awaiting SNF placement -pt/ot -ppx: Lovenox/home PPI DNR Medical - PN: Qual - Stroke Symptom Onset Unknown: No - VTE Deep Vein Thrombosis/Pulmonary Embolism Present on Admission: No
[2019-06-21] MEDS: INSULIN LISPRO 1 UNIT/0.01 ML UNIT SQ SCH ×2 (08:58→13:33)
[2019-06-21] MEDS: metFORMIN 500 MG TABLET PO SCH (08:59)
[2019-06-21] MEDS: ASPIRIN 81 MG TAB.CHEW PO SCH (08:59)
[2019-06-21] MEDS: FERROUS GLUCONATE 324 MG TABLET PO SCH (08:59)
[2019-06-21] MEDS: DOCUSATE SODIUM 100 MG CAPSULE PO SCH (09:00)
[2019-06-21] MEDS: ENOXAPARIN 40 MG/0.4 ML SYRINGE SQ SCH (09:00)
[2019-06-21] MEDS ORDERED: LEVOFLOXACIN 750 MG TABLET PO SCH (09:00)
[2019-06-21] MEDS: OLMESARTAN MEDOXOMIL 20 MG TABLET PO SCH (09:00)
[2019-06-21] MEDS: TAMSULOSIN 0.4 MG CAPSULE PO SCH (09:00)
[2019-06-21] MEDS: HYDROCHLOROTHIAZIDE 12.5 MG CAPSULE PO SCH (09:00)
[2019-06-21] MEDS: amLODIPine 5 MG TABLET PO SCH (09:00)
[2019-06-21] MEDS: BISOPROLOL 5 MG TABLET PO SCH (09:01)
[2019-06-21] MEDS: PATIENTS OWN MEDICATION 1 DOSE MISCELL PO SCH (09:01)
[2019-06-21] MEDS: FINASTERIDE 5 MG TABLET PO SCH (09:01)
--- NOTE | 2019-06-21 13:18 | General Surgery Progress Note ---
Subjective Patient reports: feels better, pain is less, tolerating a regular diet, flatus, bowel movement, afebrile Narrative: Note initiated : 06/21/19 at 1:17 pm Service Date, if different from initiated Date: [] Patient: Parag Monk 89 y/o M admitted on 06/14/19 for Fall. Chief Complaint: [Patient is feeling better. He has no nausea and is tolerating diet. SALOME drainage is serous.] Objective Temp Pulse Resp BP Pulse Ox 97.4 F 63 22 139/70 94 06/21/19 07:16 06/21/19 07:16 06/21/19 07:16 06/21/19 07:16 06/21/19 07:16 - Additional Data Intake & Output - Last 24 hours: Intake & Output 06/19/19 06/20/19 06/21/19 06/22/19 05:59 05:59 05:59 05:59 Intake Total 1230 1240 900 Output Total 54 51 198 0 Balance 1176 1189 702 0 Weight 218 lb 219 lb 219 lb 3.2 oz - Labs 06/21/19 04:40 06/21/19 04:40 Diabetes panel 06/21/19 Range/Units 04:40 Sodium 143 (133-145) mmol/L Potassium 3.7 (3.3-5.1) mmol/L Chloride 100 (96-108) mmol/L Carbon Dioxide 30 (22-30) mmol/L BUN 16 (8-23) mg/dl Creatinine 1.2 (0.7-1.2) mg/dl Glucose 104 (70-105) mg/dL Calcium 8.7 (8.6-10.4) mg/dl AST 48 H (0-37) U/l ALT 100 H (0-40) U/l Alkaline Phosphatase 589 H (39-117) U/L Total Protein 6.1 (5.9-8.4) gm/dL Albumin 3.2 (3.2-5.2) gm/dL Triglycerides 179 H (<150) mg/dl Calcium panel 06/21/19 Range/Units 04:40 Calcium 8.7 (8.6-10.4) mg/dl Phosphorus 2.8 (2.7-4.5) mg/dL Albumin 3.2 (3.2-5.2) gm/dL Pituitary panel 06/21/19 Range/Units 04:40 Sodium 143 (133-145) mmol/L Potassium 3.7 (3.3-5.1) mmol/L Chloride 100 (96-108) mmol/L Carbon Dioxide 30 (22-30) mmol/L BUN 16 (8-23) mg/dl Creatinine 1.2 (0.7-1.2) mg/dl Glucose 104 (70-105) mg/dL Calcium 8.7 (8.6-10.4) mg/dl Adrenal panel 06/21/19 Range/Units 04:40 Sodium 143 (133-145) mmol/L Potassium 3.7 (3.3-5.1) mmol/L Chloride 100 (96-108) mmol/L Carbon Dioxide 30 (22-30) mmol/L BUN 16 (8-23) mg/dl Creatinine 1.2 (0.7-1.2) mg/dl Glucose 104 (70-105) mg/dL Calcium 8.7 (8.6-10.4) mg/dl Total Bilirubin 0.5 (0.0-1.0) mg/dL AST 48 H (0-37) U/l ALT 100 H (0-40) U/l Alkaline Phosphatase 589 H (39-117) U/L Total Protein 6.1 (5.9-8.4) gm/dL Albumin 3.2 (3.2-5.2) gm/dL Assessment and Plan (1) Elevated liver enzymes Status: Acute Assessment and plan: Hepatitis panel is negative Patient is stable for discharge and will have follow-up liver panel as an outpatient Current Visit: Yes (2) Cholelithiasis and acute cholecystitis without obstruction Status: Resolved Assessment and plan: As noted above Current Visit: Yes (3) Essential (primary) hypertension Status: Chronic Current Visit: No (4) Nonrheumatic aortic valve stenosis Status: Chronic Current Visit: No (5) Type 2 diabetes mellitus without complication Status: Chronic Current Visit: No (6) Bacteremia due to Gram-negative bacteria Status: Resolved Current Visit: Yes - Time Spent With Patient Total time spent is greater than 50% in coordination of care (as documented) at patient's floor/unit and/or counseling patient:
--- NOTE | 2019-06-24 10:34 | Operative Note ---
DATE OF OPERATION: 06/17/2019 PREOPERATIVE DIAGNOSIS: Cholelithiasis with cholecystitis. POSTOPERATIVE DIAGNOSIS: Cholelithiasis with cholecystitis. PROCEDURE: Laparoscopic cholecystectomy. SURGEON: Yi Cheung M.D. FINDINGS: Dilated edematous gallbladder with small stones. DESCRIPTION OF PROCEDURE: Under general anesthesia, the patient's abdomen was prepped and draped in a sterile field. Supraumbilical incision was made. Veress needle was inserted uneventfully. Abdomen was insufflated with 3 liters of CO2. A 12 mm port was placed. Laparoscope was placed. Under videoscopic guidance, a 12 mm port and two 5 mm ports were placed in the right subcostal region. The gallbladder was grasped at this position. Infundibulum dissected. Cystic duct was isolated. Cystic artery branch was isolated. Cystic duct was followed back to the gallbladder, clipped with 5 clips and divided. The cystic artery was clipped with 4 clips and divided at the wall of the gallbladder. The gallbladder was then from the infrahepatic space using electrocautery. The gallbladder was placed in an Endopouch and retrieved. Irrigation was carried out. There was no bile leak. There was slight oozing from the bed so a #10 August drain was placed. It was positioned in the subhepatic space and brought out through the most lateral port site. The CO2 was allowed to escape from the abdomen, and the ports were removed. The fascia at the umbilicus was closed with interrupted 2-0 Vicryl. Skin incisions were closed with jerome. Tegaderm dressings were placed. The drain was secured with 2-0 nylon. The patient was awakened, extubated, and transferred to the postanesthetic care unit in stable, satisfactory condition. LCS:bala Job ID: [id number] Doc ID: [id number] Yi Cheung M.D.
== END 2019-06-21 14:22 | DRG 854 ==
LOC: ED 04:24 → ICU 11:53 → MEDSUR 06-18 14:17
PROVIDERS: ADMIT Internal Medicine; ATTEND Internal Medicine

== ENCOUNTER 2020-02-28 14:57 | Inpatient (IN) ==
[2020-02-28] MEDS ORDERED: 0.9 % SODIUM CHLORIDE 1,000 ML IV ONE (15:22)
--- NOTE | 2020-02-28 16:12 | Emergency Department Note ---
HPI General Chief complaint: Recheck/Abnormal Lab/Rx Stated complaint: Elevated Creatinine Time Seen by Provider: 02/28/20 15:22 Source: patient Mode of arrival: ambulatory Limitations: no limitations History of Present Illness HPI Narrative: 89-year-old male presents ambulatory complaining of high creatinine. Was sent over from minor care. Has a 10-14 history of diarrhea 2-3 times a day. He has absolutely no abdominal pain. States maybe a mildly decreased appetite but he still eating and drinking well. Still making urine. His family took him over to minor care today because he seemed a little bit weaker than normal and he had just told him about the diarrhea. They wanted him to get checked out. They treated him and did some labs and sent home mom and then called him to tell him that his creatinine was 5 and that he needed to come to the ER. He has no history of creatinine that is elevated or any kind of renal problems. Has not had diarrhea like this in the past. He has been under some stress as his has been in the detention last few weeks. No recent travel or ill contacts. No nausea or vomiting. States he feels fine but daughter is concerned. Related Data Home Medications Medication Instructions Recorded Confirmed bisoprolol fumarate 5 mg PO DAILY 05/09/17 02/28/20 metformin 750 mg PO BIDCC 05/09/17 02/28/20 pravastatin 40 mg PO HS 05/09/17 02/28/20 aspirin 81 mg tablet,delayed 81 mg PO Q2D 10/13/17 02/28/20 release pantoprazole 40 mg tablet,delayed 40 mg PO QDAY 10/13/17 02/28/20 release ferrous gluconate 324 mg (37.5 mg 324 mg PO QDAY tab 12/15/17 02/28/20 iron) tablet telmisartan 80 mg-amlodipine 5 mg 1 tab PO QDAY 05/27/18 02/28/20 tablet vitamins A,C,J-jext-zetymx 1 each PO DAILY 06/14/19 02/28/20 furosemide 20 mg tablet 20 mg PO QDAY 08/23/19 02/28/20 Previous Rx's Medication Instructions Recorded finasteride 5 mg tablet 5 mg PO QDAY #30 tab 08/23/19 tamsulosin 0.4 mg capsule 0.8 mg PO QDAY #60 cap 08/23/19 oxybutynin chloride 5 mg 5 mg PO QDAY #30 tab 02/22/20 tablet,extended release 24 hr Allergies Allergy/AdvReac Type Severity Reaction Status Date / Time No Known Drug Allergies Allergy Verified 02/28/20 11:50 Review of Systems All systems ED: reviewed and negative except as stated. ON LICENSE OF [facility] Medical/Surgical/Family History All Active Problems (Updated 02/28/20 @ 16:16 by MARCIE Balbuena) Acute dehydration (Acute) Acute renal failure (Acute) Weight loss (Acute) Diarrhea (Acute) Chest pain, atypical (Acute) History of cholecystectomy (Acute) Abrasion (Acute) Sepsis (Acute) Fall (Acute) Sepsis associated hypotension (Acute) Elevated liver enzymes (Acute) E coli bacteremia (Acute) Diverticulitis (Chronic) Skin cancer of nose (Chronic) UTI (urinary tract infection) (Chronic) Hemorrhoids (Chronic) Diverticulosis (Chronic) History of blood transfusion (Chronic ~2008) Anemia (Chronic) Pneumonia (Chronic ~194) Arthritis (Chronic) Mumps (Chronic ~1935) Measles (Chronic ~1938) Other obstructive and reflux uropathy (Chronic) Nonrheumatic aortic valve stenosis (Chronic) Urge incontinence (Chronic) Essential (primary) hypertension (Chronic) Type 2 diabetes mellitus without complication (Chronic) 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) Acute urinary retention (Chronic) Medical History (Updated 02/28/20 @ 16:16 by MARCIE Balbuena) Anemia (Chronic) Arthritis (Chronic) 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) Diarrhea (Acute) Diverticulitis (Chronic) Diverticulosis (Chronic) Essential (primary) hypertension (Chronic) Hemorrhoids (Chronic) History of blood transfusion (Chronic ~2008) Measles (Chronic ~193) Mumps (Chronic ~1935) Nonrheumatic aortic valve stenosis (Chronic) Other obstructive and reflux uropathy (Chronic) Pneumonia (Chronic ~194) Skin cancer of nose (Chronic) Type 2 diabetes mellitus without complication (Chronic) Urge incontinence (Chronic) UTI (urinary tract infection) (Chronic) Weight loss (Acute) Surgical History History of colon surgery (Chronic ~1999) 1.5 ft of colon removed due to diverticulosis History of hernia repair (Chronic) X2 History of laparoscopic cholecystectomy (Acute) 06/17/2019 History of surgery (Chronic) Skin cancer on nose Family History Other Cancer Diabetes Social History Smoking Status: Former smoker Alcohol Intake Frequency: a few times a month Substance Use: does not use Exam General Limitations: no limitations Head Head: atraumatic, normocephalic and normal inspection Eye Eye: Present normal appearance Chest Chest: Present normal inspection and symmetric chest wall rise Respiratory Respiratory: Present normal lung sounds bilaterally; Absent respiratory distress, rales/crackles, wheezes and accessory muscle use Cardiovascular Cardiovascular: Present regular rate Adbominal Abdominal: Present soft and normal bowel sounds; Absent distention, tenderness, guarding, rebound, rigidity and mass Extremities Extremities: Present normal inspection and normal capillary refill Neurological Neurological: Present alert and oriented X3 Psychiatric Psychiatric: Present normal affect and normal mood Skin Skin: Present warm, dry, intact and normal color Course Course Course Narrative: @ 1613 I did speak with Dr. Garvey, nephrology who agrees to consult on this patient and agrees he should stay and be admited. We have a bed request in for hospitalist. [facility] 16[facility] Vital Signs Vital signs: Vital Signs Temperature 98.1 F 02/28/20 14:59 Pulse Rate 77 02/28/20 14:59 Respiratory Rate 20 02/28/20 14:59 Blood Pressure 104/60 02/28/20 14:59 Pulse Oximetry (%) 94 02/28/20 14:59 Temperature 98.1 F 02/28/20 14:59 Pulse Rate 65 02/28/20 16:35 Respiratory Rate 18 02/28/20 16:35 Blood Pressure 103/65 02/28/20 16:31 Pulse Oximetry (%) 95 02/28/20 16:35 [facility] Lab Data Lab results reviewed: Yes I reviewed the patient's lab results. Labs: Lab Results 02/28/20 Range/Units 14:57 Stool Occult Bld Immuno Cancelled Discharge Plan Patient/Caregiver Discharge Instructions Pt seen by [facility] [employer] only: Yes Clinical Impression: Acute dehydration, Acute renal failure Prescriptions: No Action oxybutynin chloride 5 mg tablet extended release 24hr 5 mg PO QDAY Qty: 30 RF: 2 aspirin 81 mg tablet,delayed release (DR/EC) 81 mg PO Q2D RF: 0 pantoprazole 40 mg tablet,delayed release (DR/EC) 40 mg PO QDAY RF: 0 metformin 500 MG tablet 750 mg PO BIDCC RF: 0 pravastatin 40 MG tablet 40 mg PO HS RF: 0 bisoprolol fumarate 5 MG tablet 5 mg PO DAILY RF: 0 vitamins A,C,R-qaoc-akuimv 1 EACH capsule 1 each PO DAILY RF: 0 ferrous gluconate 324 mg (37.5 mg iron) tablet 324 mg PO QDAY RF: 0 telmisartan-amlodipine 80-5 mg tablet 1 tab PO QDAY RF: 0 furosemide 20 mg tablet 20 mg PO QDAY RF: 0 finasteride 5 mg tablet 5 mg PO QDAY Qty: 30 RF: 11 tamsulosin 0.4 mg capsule 0.8 mg PO QDAY Qty: 60 RF: 11 Follow up with: Camilla Garvey MD [Physician] - Patient Disposition: Xfer As Outpt/Obs ([facility]) Condition: Fair
[2020-02-28] MEDS ORDERED: 0.9 % SODIUM CHLORIDE 1,000 ML IV SCH (16:30)
--- NOTE | 2020-02-28 16:38 | Nephrology Consult Note ---
HPI Consult Narrative Patient Information: Note initiated : 02/28/20 at 4:36 pm Service Date, if different from initiated Date: [] Patient: Parag Monk 89 y/o M admitted on for Elevated Creatinine. diagnosed with diabetes ~1999 Chief Complaint: Elevated creatinine cc:: 89-year-old male with T2 DM, HTN, BPH, was sent to the emergency department for elevated creatinine. He was seen in minor care for diarrhea, watery, x10 to 14 days. He had no abdominal pain. Reports adequate urine output. Says was able to keep food/fluids down. She continued to take all his medications including blood pressure lowering agents, diuretics, ARB, and took NSAIDs for knee pain. He is concerned about his who will be discharged from a nursing facility. [id number] present throughout the visit Medical history, social history reviewed, as below Review of Systems Review of systems: 12 point review of system performed and positive for malaise, watery diarrhea times days, no abdominal pain, no fever or chills, + able to keep food/fluid down. + Knee pain for which he took NSAIDs. 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) Diarrhea (Acute) Diverticulitis (Chronic) Diverticulosis (Chronic) Essential (primary) hypertension (Chronic) Hemorrhoids (Chronic) History of blood transfusion (Chronic ~2008) Measles (Chronic ~1939) Mumps (Chronic ~193) Nonrheumatic aortic valve stenosis (Chronic) Other obstructive and reflux uropathy (Chronic) Pneumonia (Chronic ~194) Skin cancer of nose (Chronic) Type 2 diabetes mellitus without complication (Chronic) Urge incontinence (Chronic) UTI (urinary tract infection) (Chronic) Weight loss (Acute) Surgical History History of colon surgery (Chronic ~1999) 1.5 ft of colon removed due to diverticulosis History of hernia repair (Chronic) X2 History of laparoscopic cholecystectomy (Acute) 06/17/2019 History of surgery (Chronic) Skin cancer on nose Family History Other Cancer Diabetes Social History (Updated 02/28/20 @ 17:29 by Donovan Terry DO) marital status: occupational status: retired physical activity: none smoking status: Former smoker pack-years: 10 alcohol intake frequency: a few times a month substance use type: does not use additional history: Lives at home with however his is been in the nursing over the past 3 weeks Has a few drinks of alcohol socially MEDS/ALLERGIES Home Medications and Allergies Home Medications Medication Instructions Recorded Confirmed Type bisoprolol fumarate 5 mg PO DAILY 05/09/17 02/29/20 History metformin 750 mg PO BIDCC 05/09/17 02/29/20 History pravastatin 40 mg PO HS 05/09/17 02/29/20 History aspirin 81 mg tablet,delayed 81 mg PO Q2D 10/13/17 02/29/20 History release pantoprazole 40 mg tablet,delayed 40 mg PO QDAY 10/13/17 02/29/20 History release ferrous gluconate 324 mg (37.5 mg 324 mg PO QDAY tab 12/15/17 02/29/20 History iron) tablet telmisartan 80 mg-amlodipine 5 mg 1 tab PO QDAY 05/27/18 02/29/20 History tablet vitamins A,C,J-tspk-sugsmk 1 each PO DAILY 06/14/19 02/29/20 History finasteride 5 mg tablet 5 mg PO QDAY #30 tab 08/23/19 02/29/20 Rx furosemide 20 mg tablet 20 mg PO QDAY 08/23/19 02/29/20 History tamsulosin 0.4 mg capsule 0.8 mg PO QDAY #60 cap 08/23/19 02/29/20 Rx oxybutynin chloride 5 mg 5 mg PO QDAY #30 tab 02/22/20 02/29/20 Rx tablet,extended release 24 hr amlodipine 5 mg PO QDAY 02/28/20 02/29/20 History diclofenac sodium 1 % TOPICAL PRN PRN 02/29/20 02/29/20 History Allergies Allergy/AdvReac Type Severity Reaction Status Date / Time No Known Drug Allergies Allergy Verified 02/28/20 11:50 Physical Examination Vital Signs Vital signs: Temp Pulse Resp BP Pulse Ox 36.7 C 65 18 103/65 95 02/28/20 14:59 02/28/20 16:35 02/28/20 16:35 02/28/20 16:31 02/28/20 16:35 General Appearance General appearance: well-developed, well-nourished and appears started age Neck Neck: no JVD, no thyromegaly, no carotid bruit and supple Respiratory Respiratory: clear (anterior aspect ) Cardiovascular Cardiology: no murmurs, no rub, no edema, regular rate, regular rhythm, normal S1 and normal S2 Gastrointestinal Gastrointestinal: normoactive bowel sounds Integumentary Integumentary: no rash and warm and dry Neurologic Neurologic: no focal deficit, no asterixis and alert and oriented x3 Musculoskeletal Musculoskeletal: no cyanosis and no clubbing Psychiatric Psychiatric: mood/affect appropriate and cooperative Results Lab Results Result Diagrams: 02/29/20 05:35 03/01/20 05:45 A/P Assessment and plan (1) Acute renal failure: Status: Acute Narrative A/P Narrative: Narrative: sever CARLOS (per patient non oliguric, POA) *strict I/O, renal diet, continue iv fluids, after total 2 liters can give maintenance 1ml/kg/hour as long as he is non oliguric * Wesley *renal ultrasound to r/o obstruction, ua with microscopic exam *avoid nephrotoxins, no Mg or phos containing stool softners *daily renal function panel *renally dose medication, for GFR <15 for now *after calcium repletion can start sodium bicarbonate 650mg po bid. *no need for dialysis Time Spent With Patient Time: Total time spent is greater than 50% in coordination of care (as documented) at patient's floor/unit and/or counseling patient: discussed case with ED provider, updated patient and daughter in law with findings/ plan, brief ly discussed with warehouse loader. Total time spent with greater than 50% in coordination of care (as documented) at patient's floor/unit and/or counseling patient:: Greater than 35 minutes
--- NOTE | 2020-02-28 16:53 | Internal Med History&Physical ---
HPI History of Present Illness Patient information: Note initiated : 02/28/20 at 4:46 pm Service Date, if different from initiated Date: [] Patient: Parag Monk 89 y/o M admitted on for Elevated Creatinine. Chief Complaint: [] History of present illness: Mr. Monk is a 89 year old M Patient presented to ED at the request of the family because he appeared weak. He did admit that he has had diarrhea 2-3 times a day for the past several we eks. Denies any abdominal pain denies any fever chills. Thinks it may be stress related because his is in a shelter for it. Evaluation of minor care showed a creatinine of 5.5. Patient states his been urinating fine. Vital signs are stable he has no other pains or complaints. He describes the diarrhea as dark from Pepto-Bismol but before he took the Pepto-Bismol it was a yellow. It is nonbloody. He is never had any similar episodes in the past. He did start Meals on Wheels almost 3 weeks ago. That he cannot think of any inciting etiologies. Does not feel like he is having any urinary issues, he has had urinary retention in the past. Review of Systems: Pertinent positives as above. Denies headache/fever/chills/nausea/vomiting/chest or abdominal pain/cough/dyspnea. 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) Diarrhea (Acute) Diverticulitis (Chronic) Diverticulosis (Chronic) Essential (primary) hypertension (Chronic) Hemorrhoids (Chronic) History of blood transfusion (Chronic ~2008) Measles (Chronic ~193) Mumps (Chronic ~193) Nonrheumatic aortic valve stenosis (Chronic) Other obstructive and reflux uropathy (Chronic) Pneumonia (Chronic ~194) Skin cancer of nose (Chronic) Type 2 diabetes mellitus without complication (Chronic) Urge incontinence (Chronic) UTI (urinary tract infection) (Chronic) Weight loss (Acute) Surgical History History of colon surgery (Chronic ~1999) 1.5 ft of colon removed due to diverticulosis History of hernia repair (Chronic) X2 History of laparoscopic cholecystectomy (Acute) 06/17/2019 History of surgery (Chronic) Skin cancer on nose Family History Other Cancer Diabetes Social History (Updated 02/28/20 @ 17:29 by Donovan Terry DO) marital status: occupational status: retired physical activity: none smoking status: Former smoker pack-years: 10 alcohol intake frequency: a few times a month substance use type: does not use additional history: Lives at home with however his is been in the nursing over the past 3 weeks Has a few drinks of alcohol socially MEDS/ALLERGIES Home Medications and Allergies Home Medications Medication Instructions Recorded Confirmed Type bisoprolol fumarate 5 mg PO DAILY 05/09/17 02/28/20 History metformin 750 mg PO BIDCC 05/09/17 02/28/20 History pravastatin 40 mg PO HS 05/09/17 02/28/20 History aspirin 81 mg tablet,delayed 81 mg PO Q2D 10/13/17 02/28/20 History release pantoprazole 40 mg tablet,delayed 40 mg PO QDAY 10/13/17 02/28/20 History release ferrous gluconate 324 mg (37.5 mg 324 mg PO QDAY tab 12/15/17 02/28/20 History iron) tablet telmisartan 80 mg-amlodipine 5 mg 1 tab PO QDAY 05/27/18 02/28/20 History tablet vitamins A,C,M-bxah-ymlacm 1 each PO DAILY 06/14/19 02/28/20 History finasteride 5 mg tablet 5 mg PO QDAY #30 tab 08/23/19 02/28/20 Rx furosemide 20 mg tablet 20 mg PO QDAY 08/23/19 02/28/20 History tamsulosin 0.4 mg capsule 0.8 mg PO QDAY #60 cap 08/23/19 02/28/20 Rx oxybutynin chloride 5 mg 5 mg PO QDAY #30 tab 02/22/20 02/28/20 Rx tablet,extended release 24 hr amlodipine 5 mg PO QDAY 02/28/20 02/28/20 History Allergies Allergy/AdvReac Type Severity Reaction Status Date / Time No Known Drug Allergies Allergy Verified 02/28/20 11:50 EXAM Constitutional Vitals: Temp Pulse Resp BP Pulse Ox 98.1 F 65 18 103/65 95 02/28/20 14:59 02/28/20 16:35 02/28/20 16:35 02/28/20 16:31 02/28/20 16:35 Exam: General: Alert, Awake, No acute Distress Eyes/N/T: EOMI, PERRL, dry MM Head/Neck: neck supple, normocephalic atraumatic CV: RRR, No murmurs, normal s1/s2 Pulm: Clear b/l, no wheezing/rhonchi/rales Abd: soft, nontender, +BS x4 Ext: no clubbing/cyanosis/edema Neuro: Alert, no focal deficits, moves all extremities, CN 2-12 grossly intact, symmetrical strength b/l upper/lower, sensations intact b/l upper/lower Skin: warm/dry DATA Data Completed and Pending Labs on day of discharge: Labs from last 24 hours 02/28/20 14:57 Stool Occult Bld Immuno Cancelled A/P Narrative A/P Narrative: A: *CARLOS on CKD III: 2/2 diarrhea *Diarrhea: Questionable viral gastroenteritis versus other more likely, afebrile/no abdominal pain/no leukocytosis *Volume depletion: *Met acidosis: 2/2 above *DM: *HTN/HLD: *Anemia, chronic: *BPH: *GERD: *Hypocalcemia: * P: -IVF -Follow-up renal function and urine output -Nephrology following -Stool studies pending -renal u/s -prn electrotyte replacement -hold ARB/Lasix/Metformin for carlos -cont BB -SSI -pt/ot -ppx: heparin/home ppi DNR Time Spent With Patient Time: Total time spent is greater than 50% in coordination of care (as documented) at patient's floor/unit and/or counseling patient:
[2020-02-28] MEDS ORDERED: POTASSIUM CHLORIDE 20 MEQ TABLET PO PRN ×2 (18:09)
[2020-02-28] MEDS ORDERED: POTASSIUM CHLORIDE 40 MEQ in DEXTROSE 5% IN WATER 500 ML IV PRN (18:09)
[2020-02-28] MEDS ORDERED: ONDANSETRON 4 MG/2 ML VIAL IV PRN (18:09)
[2020-02-28] MEDS ORDERED: CALCIUM GLUCONATE 4.65 MEQ/10 ML VIAL IV ONE (18:09)
[2020-02-28] MEDS: 0.9 % SODIUM CHLORIDE 1,000 ML IV SCH (18:50)
[2020-02-28] MEDS ORDERED: PRAVASTATIN 40 MG TABLET PO SCH (21:00)
[2020-02-28] MEDS: MAGNESIUM SULFATE 2 GM/50 ML BAG IV PRN (21:00)
[2020-02-28] MEDS: HEPARIN 5,000 UNIT/ML VIAL SQ SCH (21:01)
[2020-02-28] MEDS: 0.9 % SODIUM CHLORIDE 10 ML SYRINGE IV SCH (21:04)
[2020-02-29] MEDS: 0.9 % SODIUM CHLORIDE 10 ML SYRINGE IV SCH ×3 (04:37→20:48)
--- NOTE | 2020-02-29 04:42 | Ultrasound Report ---
CLINICAL INFORMATION: renee COMPARISON: None. FINDINGS: Both kidneys are normal and symmetric in size position and configuration: The right is 9.7 x 5 cm the left is 9 x 5 cm. Renal echotexture is mildly elevated. A 2 cm simple cyst seen in the inferior pole the right kidney and 1 cm simple cyst mid left kidney. No solid lesions stones or hydronephrosis. Arterial blood flow is grossly normal both kidneys on color Doppler. Urinary bladder volume is 84 cc. patient was unable to void. Prostate is markedly enlarged with a volume of 192 cc IMPRESSION: 1. Mildly elevated renal echotexture compatible with medical renal disease. Simple cysts in both kidneys 2. Marked prostate enlargement Interpreted and Authenticated by: Otto Dominique 02/29/20
[2020-02-29] MEDS: 0.9 % SODIUM CHLORIDE 1,000 ML IV SCH (06:05)
[2020-02-29] MEDS: PANTOPRAZOLE 40 MG TABLET PO SCH (07:18)
--- NOTE | 2020-02-29 07:20 | Internal Med Progress Note ---
SUBJECTIVE Subjective Patient information: Note initiated : 02/29/20 at 7:15 am Service Date, if different from initiated Date: [] Patient: Parag Monk 89 y/o M admitted on 02/28/20 for Elevated Creatinine. Chief Complaint: [] Interval history: History of present illness: Mr. Monk is a 89 year old M Patient presented to ED at the request of the family because he appeared weak. He did admit that he has had diarrhea 2-3 times a day for the past several weeks. Denies any abdominal pain denies any fever chills. Thinks it may be stress related because his is in a long term for it. Evaluation of minor care showed a creatinine of 5.5. Patient states his been urinating fine. Vital signs are stable he has no other pains or complaints. He describes the diarrhea as dark from Pepto-Bismol but before he took the Pepto-Bismol it was a yellow. It is nonbloody. He is never had any similar episodes in the past. He did start Meals on Wheels almost 3 weeks ago. That he cannot think of any inciting etiologies. Does not feel like he is having any urinary issues, he has had urinary retention in the past. 02/28 Patient feeling better today. He denies having diarrhea overnight. Had a decent sleep. No new complaints. Review of Systems: denies headache/fever/chills/nausea/vomiting/chest or abdominal pain/cough/dyspnea. Otherwise see above. Constitutional Vitals: Vital Signs Temp Pulse Resp BP Pulse Ox 97.2 F 78 16 100/57 92 02/29/20 04:31 02/29/20 04:31 02/29/20 04:31 02/29/20 04:31 02/29/20 04:31 Period Temp Pulse Resp BP Sys/Mesa Pulse Ox Last 24 Hr 96.9 F-98.1 F 64-86 - 96-126/54-105 92-96 Intake and Output 02/28/20 02/29/20 02/29/20 21:59 05:59 13:59 Intake Total 1908 1200 Output Total 625 275 Balance 1283 925 Weight 87.09 kg Intake & Output: Intake & Output 02/28/20 02/29/20 02/29/20 21:59 05:59 13:59 Intake Total 1908 1200 Output Total 625 275 Balance 1283 925 Weight 87.09 kg Intake: IV 1508 1050 Sodium Chloride 0.9% 1,000 ml @ 1508 1000 100 mls/hr IV .Q10H [facility] Rx#: [id number] Oral 400 150 Output: Void Amount 325 275 Stool 300 Other: Meal 2 Cups of soup, Ice cream Percent of Meal Consumed 100% Feeding Ability Independent Urine Appearance Clear Clear Urine Color Bright Yellow Bright Yellow Urine Odor Normal Stool Color Green Stool Consistency Liquid Loose Exam: General: Alert, Awake, No acute Distress Eyes/N/T: EOMI, Head/Neck: neck supple, CV: RRR, No murmurs, normal s1/s2 Pulm: Clear b/l, no wheezing/rhonchi/rales Abd: soft, nontender, +BS x4 Ext: no clubbing/cyanosis/edema Neuro: Alert, no focal deficits, moves all extremities, Skin: warm/dry OBJ DATA Labs CBC & Chem 7: 02/29/20 05:35 02/29/20 05:35 Meds: Medications Acetaminophen (Tylenol) 650 mg PO Q6HP PRN PRN Reason: PAIN/FEVER > 101 Aspirin (Aspirin) 81 mg PO Q48H [facility] Bisoprolol Fumarate (Zebeta) 5 mg PO DAILY [facility] Finasteride (Proscar) 5 mg PO QDAY [facility] Heparin Sodium (Porcine) (Heparin) 5,000 unit SQ Q12 [facility] Last Admin: 02/28/20 21:01 Dose: 5,000 unit Documented by: Potassium Chloride 40 meq/ (Dextrose) 520 mls @ 130 mls/hr IV UD PRN PRN Reason: Potassium < 3 Magnesium Sulfate (Magnesium Sulfate) 2 gm in 50 mls @ 50 mls/hr IV UD PRN PRN Reason: Magnesium </= 1.6 Last Infusion: 02/28/20 22:00 Dose: Infused Documented by: Sodium Chloride (Sodium Chloride 0.9%) 1,000 mls @ 100 mls/hr IV .Q10H [facility] Stop: 02/29/20 14:08 Last Admin: 02/29/20 06:05 Dose: 100 mls/hr Documented by: Ondansetron HCl (Zofran) 4 mg IV Q4HP PRN PRN Reason: Nausea And Vomiting Oxybutynin Chloride (Ditropan Xl) 5 mg PO QDAY [facility] Pantoprazole Sodium (Protonix) 40 mg PO QAMAC [facility] Potassium Chloride (Kdur) 40 meq PO UD PRN PRN Reason: Potssium is 3-3.5 Potassium Chloride (Kdur) 40 meq PO UD PRN PRN Reason: Potassium < 3 Sodium Chloride (Saline Flush) 10 ml IV Q8 [facility] Last Admin: 02/29/20 04:37 Dose: Not Given Documented by: Tamsulosin HCl (Flomax) 0.8 mg PO QDAY GARY A/P Assessment and plan (1) Acute renal failure: Status: Acute Narrative A/P Narrative: Narrative: A: *CARLOS on CKD III: 2/2 diarrhea -renal u/s no hydro -improving *Diarrhea: ?viral gastroenteritis versus other more likely, afebrile/no abdominal pain/no leukocytosis -c. diff neg, few fecal wbc, stool cx neg *Volume depletion: *Met acidosis: 2/2 above *DM: *HTN/HLD: *Anemia, chronic: *BPH: *GERD: *Hypocalcemia: *Electrolyte imbalance: P: -cont IVF -Follow-up renal function and urine output -Nephrology following -Stool cx's pending -start imodium if stool cx's neg -prn electrotyte replacement -hold ARB/Lasix/Metformin for carlos -cont BB -SSI -pt/ot -ppx: heparin/home ppi DNR Time Spent With Patient Time: Total time spent is greater than 50% in coordination of care (as documented) at patient's floor/unit and/or counseling patient: QUALITY Stroke Symptom Onset Unknown: No VTE Deep Vein Thrombosis/Pulmonary Embolism Present on Admission: No
--- NOTE | 2020-02-29 07:37 | Nephrology Progress Note ---
SUBJECTIVE Subjective Patient information: Note initiated : 02/29/20 at 7:36 am Service Date, if different from initiated Date: [] Patient: Parag Monk 89 y/o M admitted on 02/28/20 for Elevated Creatinine. Chief Complaint: Elevated creatinine Interval history: Narrative: good spontaneous urine output, positive fluid balance. SCR improving Constitutional Vitals: Vital Signs Temp Pulse Resp BP Pulse Ox 36.2 C 78 16 100/57 92 02/29/20 04:31 02/29/20 04:31 02/29/20 04:31 02/29/20 04:31 02/29/20 04:31 Period Temp Pulse Resp BP Sys/Mesa Pulse Ox Last 24 Hr 36.1 C-36.7 C 64-86 - 96-126/54-105 92-96 Intake and Output 02/28/20 02/29/20 02/29/20 21:59 05:59 13:59 Intake Total 1908 1200 Output Total 625 275 Balance 1283 925 Weight 87.09 kg Intake & Output: Intake & Output 02/28/20 02/29/20 02/29/20 21:59 05:59 13:59 Intake Total 1908 1200 Output Total 625 275 Balance 1283 925 Weight 87.09 kg Intake: IV 1508 1050 Sodium Chloride 0.9% 1,000 ml @ 1508 1000 100 mls/hr IV .Q10H [facility] Rx#: [id number] Oral 400 150 Output: Void Amount 325 275 Stool 300 Other: Meal 2 Cups of soup, Ice cream Percent of Meal Consumed 100% Feeding Ability Independent Urine Appearance Clear Clear Urine Color Bright Yellow Bright Yellow Urine Odor Normal Stool Color Green Stool Consistency Liquid Loose Head Head exam: Present atraumatic Eye Additional comments: Nonicteric sclera Extremities Exam Additional comments: No lower extremity edema No clubbing or cyanosis Neurological Exam Neurological exam: Present alert Additional comments: Clear speech A/P Assessment and plan (1) Acute renal failure: Status: Acute Comment: Severe nonoliguric CARLOS (2) Hypocalcemia: Status: Acute (3) Hypomagnesemia: Status: Acute (4) Metabolic acidosis: Status: Acute Narrative A/P Narrative: Severe, nonoliguric CARLOS. Improving. CKD stage III, baseline SCR 1.2- 1.4, EGFR 45 as of 07/08/2019 CARLOS most likely multifactorial, prolonged prerenal state in the setting of diarrhea, ARBdiuretic and NSAID use leading to ATN. 02/29/2020 urine dipstick unremarkable 02/28/2020 renal ultrasound R9.7, L9. Echotexture mildly elevated. Simple cyst. No hydronephrosis, prostate markedly enlarged with a volume of 192. Urinary bladder volume 84 cc *ARB, diuretic on hold. *Continue IV fluid 1 mill per KG per hour today *Continue renal diet hemodynamics and volume Clinically dry to euvolemic. Management as above acid-base Bicarbonate 15, bicarbonate replacement on hold because of hypocalcemia. Once hypocalcemia corrects will initiate sodium bicarbonate 650 twice daily bone-mineral metabolism Hypocalcemia, despite 2 g calcium administration yesterday. He received another 2 g today I expect his hyperphosphatemia will improve with improvement of renal function Magnesium was repleted as well *Recheck calcium in the morning and check vitamin D. BUN/ K 71/4.1. Azotemia improving Time Spent With Patient Time: patient update with progress
[2020-02-29 07:48] LABS: Basophils # (Auto) 0.02 K/mcL (0.00-0.30); Basophils % (Auto) 0.3 % (0.0-2.0); Eosinophils # (Auto) 0.11 K/mcL (0.00-0.70); Eosinophils % (Auto) 1.4 % (0.0-7.0); Granulocytes % (Auto) 69.2 % (38.0-78.0); Hematocrit 33.2 % (40.1-51.0); Lymphocytes # (Auto) 1.53 K/mcL (1.50-4.80); Lymphocytes % (Auto) 19.9 % (15.5-49.0); Mean Cell Volume 90.7 fL (80.0-100.0); Mean Corpuscular HGB Conc 33.1 g/dL (31.0-36.0); Mean Platelet Volume 11.9 fL (7.4-10.4); Monocytes # (Auto) 0.71 K/mcL (0.10-0.90); Monocytes % (Auto) 9.2 % (1.0-12.0); Platelet Count 202 K/mcL (140-440); RBC 3.66 M/mcL (4.63-6.08); Red Cell Distribution Width 13.6 % (11.5-14.5); WBC 7.7 K/mcL (4.50-11.00)
[2020-02-29 07:52] LABS: Bilirubin,Direct < 0.2 mg/dL (0.0-0.3); Chloride 104 mmol/L (96-108)
[2020-02-29 07:55] LABS: ALT/SGPT < 5 U/l (0-40); AST/SGOT 8 U/l (0-37); Albumin 3.5 gm/dL (3.2-5.2); Albumin/Globulin Ratio 1.3 (1.0-2.3); Alkaline Phosphatase 117 U/L (39-117); Bilirubin,Total 0.3 mg/dL (0.0-1.0); Blood Urea Nitrogen 71 mg/dl (8-23); Calcium 6.9 mg/dl (8.6-10.4); Carbon Dioxide 15 mmol/L (22-30); Globulin 2.7 gm/dL (2.2-3.7); Glomerular Filtration Rate 11; Glucose 80 mg/dL (70-105); Lactate Dehydrogenase 154 U/L (94-250); Phosphorous 4.8 mg/dL (2.7-4.5); Triglycerides 128 mg/dl (<150); Uric Acid 13.8 mg/dL (2.5-8.0)
[2020-02-29 07:56] LABS: Appearance,Urine CLEAR; Bilirubin,Urine NEG (NEG); Color,Urine YELLOW; Culture Indicated,Urine NO; Glucose,Urine (UA) NEGATIVE (NEG); Ketones,Urine NEG (NEG); Leukocyte Esterase,Urine NEG /uL (NEG); Nitrate,Urine NEG (NEG); Protein,Urine NEG (NEG); Urine Blood NEG mg/dL (<0.03); Urobilinogen,Urine NEG (NEG)
[2020-02-29] MEDS ORDERED: CALCIUM GLUCONATE 4.65 MEQ/10 ML VIAL IV ONE (08:19)
[2020-02-29] MEDS ORDERED: MAGNESIUM SULFATE 2 GM/50 ML BAG IV ONE (08:19)
[2020-02-29] MEDS ORDERED: 0.9 % SODIUM CHLORIDE 1,000 ML IV SCH (08:22)
[2020-02-29] MEDS ORDERED: CALCIUM GLUCONATE 9.3 MEQ in DEXTROSE 5% IN WATER 50 ML IV ONE (08:30)
[2020-02-29] MEDS: TAMSULOSIN 0.4 MG CAPSULE PO SCH (08:47)
[2020-02-29] MEDS: HEPARIN 5,000 UNIT/ML VIAL SQ SCH ×2 (08:47→20:46)
[2020-02-29] MEDS: OXYBUTYNIN CHLORIDE 5 MG TAB.XL.24H PO SCH (08:48)
[2020-02-29] MEDS: BISOPROLOL 5 MG TABLET PO SCH (08:48)
[2020-02-29] MEDS: FINASTERIDE 5 MG TABLET PO SCH (08:48)
[2020-02-29] MEDS: ASPIRIN 81 MG TAB.CHEW PO SCH (09:20)
[2020-02-29] MEDS ORDERED: LOPERAMIDE 2 MG CAPSULE PO ONE ×2 (18:30→18:38)
[2020-03-01] MEDS: 0.9 % SODIUM CHLORIDE 10 ML SYRINGE IV SCH ×3 (06:07→20:40)
[2020-03-01] MEDS: PANTOPRAZOLE 40 MG TABLET PO SCH (06:59)
[2020-03-01 07:49] LABS: Bilirubin,Direct < 0.2 mg/dL (0.0-0.3)
[2020-03-01 07:50] LABS: ALT/SGPT < 5 U/l (0-40); AST/SGOT 10 U/l (0-37); Albumin 3.3 gm/dL (3.2-5.2); Albumin/Globulin Ratio 1.3 (1.0-2.3); Alkaline Phosphatase 104 U/L (39-117); Bilirubin,Total 0.3 mg/dL (0.0-1.0); Blood Urea Nitrogen 36 mg/dl (8-23); Calcium 7.2 mg/dl (8.6-10.4); Carbon Dioxide 15 mmol/L (22-30); Chloride 112 mmol/L (96-108); Globulin 2.5 gm/dL (2.2-3.7); Glomerular Filtration Rate 18; Glucose 82 mg/dL (70-105); Lactate Dehydrogenase 162 U/L (94-250); Phosphorous 4.1 mg/dL (2.7-4.5); Triglycerides 126 mg/dl (<150)
[2020-03-01] MEDS: OXYBUTYNIN CHLORIDE 5 MG TAB.XL.24H PO SCH (09:46)
[2020-03-01] MEDS: BISOPROLOL 5 MG TABLET PO SCH (09:46)
[2020-03-01] MEDS: FINASTERIDE 5 MG TABLET PO SCH (09:47)
[2020-03-01] MEDS: TAMSULOSIN 0.4 MG CAPSULE PO SCH (09:47)
[2020-03-01] MEDS: MAGNESIUM SULFATE 2 GM/50 ML BAG IV PRN (09:48)
[2020-03-01] MEDS: HEPARIN 5,000 UNIT/ML VIAL SQ SCH ×2 (09:50→20:40)
--- NOTE | 2020-03-01 12:44 | Internal Med Progress Note ---
SUBJECTIVE Subjective Patient information: Note initiated : 03/01/20 at 12:42 pm Service Date, if different from initiated Date: [] Patient: Parag Monk 89 y/o M admitted on 02/28/20 for Elevated Creatinine. Chief Complaint: History of present illness: Mr. Monk is a 89 year old M Patient presented to ED at the request of the family because he appeared weak. He did admit that he has had diarrhea 2-3 times a day for the past several weeks. Denies any abdominal pain denies any fever chills. Thinks it may be stress related because his is in a custodial for it. Evaluation of minor care showed a creatinine of 5.5. Patient states his been urinating fine. Vital signs are stable he has no other pains or complaints. He describes the diarrhea as dark from Pepto-Bismol but before he took the Pepto-Bismol it was a yellow. It is nonbloody. He is never had any similar episodes in the past. He did start Meals on Wheels almost 3 weeks ago. That he cannot think of any inciting etiologies. Does not feel like he is having any urinary issues, he has had urinary retention in the past. 02/28 Patient feeling better today. He denies having diarrhea overnight. Had a decent sleep. No new complaints. 03/01 Patient's creatinine improved still 3.0 Diarrhea has slowed down No abdominal tenderness He was able to work with physical therapy Interval history: Narrative: Review of system Constitutional-no fever no chills Respiratory-no shortness of breath no cough no need of oxygen Cardiology-no chest pain no palpitations Abdominal-continued having diarrhea improving, no abdominal tenderness Urinary-no urine symptoms Neuro-no seizure no headache no focal neuro deficit Psychiatric no anxiety no depression Constitutional Vitals: Vital Signs Temp Pulse Resp BP Pulse Ox 97.4 F 85 16 107/63 94 03/01/20 07:51 03/01/20 07:51 03/01/20 07:51 03/01/20 07:51 03/01/20 07:51 Period Temp Pulse Resp BP Sys/Mesa Pulse Ox Last 24 Hr 97.4 F-98.0 F 58-85 16-18 101-112/50-65 92-96 Intake and Output 02/29/20 03/01/20 03/01/20 21:59 05:59 13:59 Intake Total 3143 0 Output Total 675 125 Balance 2468 0 -125 Weight 193 lb Intake & Output: Intake & Output 02/29/20 03/01/20 03/01/20 21:59 05:59 13:59 Intake Total 3143 0 Output Total 675 125 Balance 2468 0 -125 Weight 193 lb Intake: IV 1243 Sodium Chloride 0.9% 1,000 ml @ 1123 84 mls/hr IV .[id number] [facility] Rx#: [id number] Calcium Gluconate 9.3 Meq In 70 Dextrose 5% in Water 50 ml @ 140 mls/hr IV ONCE ONE Rx#: [id number] Oral 1900 0 Output: Void Amount 575 125 Stool 100 Other: Meal Dinner Breakfast Percent of Meal Consumed 100% 100% Feeding Ability Assist with Tray Set Up Urine Appearance Clear Clear Urine Color Dark Yellow Pale Urine Odor Normal Normal Stool Size Small Stool Color Brown Stool Consistency Liquid Watery # Voids 1 # Bowel Movements 1 Head Head exam: Present atraumatic, normal inspection and normocephalic Eye Eye exam: Present EOMI; Absent periorbital swelling and scleral icterus ENT ENT exam: Present mucous membranes dry and normal external ear exam Neck Neck exam: Present full ROM and normal inspection; Absent lymphadenopathy and tenderness Respiratory Respiratory exam: Present normal respiratory exam; Absent accessory muscle use and respiratory distress Cardiovascular Cardiovascular exam: Present normal rate and rhythm; Absent JVD, rubs, +S3 and +S4 GI/Abdominal GI/Abdominal exam: Present distended; Absent guarding and tenderness Extremities Exam Extremities exam: Present normal capillary refill and neurovascular intact; Absent calf tenderness and tenderness Psychiatric Psychiatric exam: Absent agitated and anxious Skin Skin exam: Present normal color; Absent cyanosis and erythema OBJ DATA Labs CBC & Chem 7: 02/29/20 05:35 03/01/20 05:45 Labs: Abnormal Lab Results 03/01/20 03/01/20 02/29/20 05:45 05:45 05:35 RBC Hgb Hct MPV Chloride 112 H Carbon Dioxide 15 L 15 L Anion Gap 19.0 H BUN 36 H 71 H Creatinine 3.0 H 4.4 H Uric Acid 12.0 H 13.8 H Calcium 7.2 L 6.9 L Phosphorus 4.8 H Magnesium 1.2 L Total Protein 5.8 L 25-OH Vitamin D Total 27.08 L 02/29/20 05:35 RBC 3.66 L Hgb 11.0 L Hct 33.2 L MPV 11.9 H Chloride Carbon Dioxide Anion Gap BUN Creatinine Uric Acid Calcium Phosphorus Magnesium Total Protein 25-OH Vitamin D Total Meds: Medications Acetaminophen (Tylenol) 650 mg PO Q6HP PRN PRN Reason: PAIN/FEVER > 101 Aspirin (Aspirin) 81 mg PO Q48H [facility] Last Admin: 02/29/20 09:20 Dose: 81 mg Documented by: Bisoprolol Fumarate (Zebeta) 5 mg PO DAILY [facility] Last Admin: 03/01/20 09:46 Dose: 5 mg Documented by: Finasteride (Proscar) 5 mg PO QDAY [facility] Last Admin: 03/01/20 09:47 Dose: 5 mg Documented by: Heparin Sodium (Porcine) (Heparin) 5,000 unit SQ Q12 [facility] Last Admin: 03/01/20 09:50 Dose: 5,000 unit Documented by: Potassium Chloride 40 meq/ (Dextrose) 520 mls @ 130 mls/hr IV UD PRN PRN Reason: Potassium < 3 Magnesium Sulfate (Magnesium Sulfate) 2 gm in 50 mls @ 50 mls/hr IV UD PRN PRN Reason: Magnesium </= 1.6 Last Admin: 03/01/20 09:48 Dose: 50 mls/hr Documented by: Loperamide HCl (Imodium) 2 mg PO PRN PRN PRN Reason: Diarrhea Ondansetron HCl (Zofran) 4 mg IV Q4HP PRN PRN Reason: Nausea And Vomiting Oxybutynin Chloride (Ditropan Xl) 5 mg PO QDAY [facility] Last Admin: 03/01/20 09:46 Dose: 5 mg Documented by: Pantoprazole Sodium (Protonix) 40 mg PO QAMAC [facility] Last Admin: 03/01/20 06:59 Dose: 40 mg Documented by: Potassium Chloride (Kdur) 40 meq PO UD PRN PRN Reason: Potssium is 3-3.5 Potassium Chloride (Kdur) 40 meq PO UD PRN PRN Reason: Potassium < 3 Sodium Chloride (Saline Flush) 10 ml IV Q8 [facility] Last Admin: 03/01/20 06:07 Dose: 10 ml Documented by: Tamsulosin HCl (Flomax) 0.8 mg PO QDAY [facility] Last Admin: 03/01/20 09:47 Dose: 0.8 mg Documented by: A/P Assessment and plan (1) Acute renal failure: Status: Acute Narrative A/P Narrative: Narrative: Acute renal failure Probably due to volume loss from diarrhea Improving Creatinine 3.0 Patient has baseline CKD stage III Continued having good urine output Probable acute gastroenteritis Probably viral infection Stool ova parasite pending No need for any antibiotics Diarrhea seems to be improving Metabolic acidosis-due to gastroenteritis improved Nephrology planning to start bicarbonate Essential hypertension We will restart home medications as indicated Hyperlipidemia Continue home medications BPH Continue home medications Type 2 diabetes Restart home medications as he can tolerate DVT prophylaxis Heparin subcu heparin CODE STATUS-DNR Time Spent With Patient Time: Total time spent is greater than 50% in coordination of care (as documented) at patient's floor/unit and/or counseling patient: QUALITY Stroke Symptom Onset Unknown: No VTE Deep Vein Thrombosis/Pulmonary Embolism Present on Admission: No
[2020-03-01] MEDS: LOPERAMIDE 2 MG CAPSULE PO PRN ×3 (14:34→20:41)
--- NOTE | 2020-03-01 18:23 | Nephrology Progress Note ---
SUBJECTIVE Subjective Patient information: Note initiated : 03/01/20 at 6:21 pm Service Date, if different from initiated Date: [] Patient: Parag Monk 89 y/o M admitted on 02/28/20 for Elevated Creatinine. Chief Complaint: [] Interval history: Narrative: diarrhea improving. good urine output. renal function improving as well. Constitutional Vitals: Vital Signs Temp Pulse Resp BP Pulse Ox 36.5 C 64 16 107/64 90 03/01/20 16:00 03/01/20 16:00 03/01/20 16:00 03/01/20 16:00 03/01/20 16:00 Period Temp Pulse Resp BP Sys/Mesa Pulse Ox Last 24 Hr 36.3 C-36.7 C 58-85 16-16 101-112/50-65 90-94 Intake and Output 03/01/20 03/01/20 03/01/20 05:59 13:59 21:59 Intake Total 0 800 Output Total 125 250 Balance 0 -125 550 Intake & Output: Intake & Output 03/01/20 03/01/20 03/01/20 05:59 13:59 21:59 Intake Total 0 800 Output Total 125 250 Balance 0 -125 550 Intake: Oral 0 800 Output: Void Amount 125 125 Stool 125 Other: Meal Breakfast Lunch Percent of Meal Consumed 100% 100% Urine Appearance Clear Clear Urine Color Pale Pale Urine Odor Normal Stool Size Moderate Stool Color Brown Stool Consistency Liquid # Voids 1 # Bowel Movements 1 Head Head exam: Present atraumatic Cardiovascular Cardiovascular exam: Present normal rate and rhythm Extremities Exam Additional comments: No lower extremity edema Neurological Exam Neurological exam: Present alert A/P Assessment and plan (1) Acute renal failure: Status: Acute Comment: Severe nonoliguric CARLOS (2) Hypocalcemia: Status: Acute (3) Hypomagnesemia: Status: Acute (4) Metabolic acidosis: Status: Acute Narrative A/P Narrative: Severe, nonoliguric CARLOS. Improving. Peak Scr 5.5 on 02/28/2020 --> 3 on 03/01/2020 CKD stage III, baseline SCR 1.2- 1.4, EGFR 45 as of 07/08/2019 CARLOS most likely multifactorial, prolonged prerenal state in the setting of diarrhea, ARBdiuretic and NSAID use leading to ATN. 02/29/2020 urine dipstick unremarkable 02/28/2020 renal ultrasound R9.7, L9. Echotexture mildly elevated. Simple cyst. No hydronephrosis, prostate markedly enlarged with a volume of 192. Urinary bladder volume 84 cc *ARB, diuretic on hold. *as long as diarrhea is controlled and can take po, agree to hold iv fluids *Continue strict I's and O's, avoid nephrotoxins hemodynamics and volume Clinically euvolemic. 06/15/2019 echocardiogram mild cLVH, LVEF 54% unable to accurately assess diastolic function. RV systolic function normal *decrease bisoprolol to 2.5mg po daily acid-base Bicarbonate 15, bicarbonate replacement was held because of hypocalcemia. I also expect this will correct with improvement of renal function/cessation of diarrhea. *If calcium, bicarbonate stable by 03/02/2020, start sodium bicarbonate 650 twice daily bone-mineral metabolism Hypocalcemia improved but persists. hyperphosphatemia, resolved. Magnesium was repleted as well *give 1 gram calcium carbonate po today and tomorrow * start 1k units vitamin D BUN/ K 71/4.1. Azotemia improving Time Spent With Patient Time: Total time spent is greater than 50% in coordination of care (as documented) at patient's floor/unit and/or counseling patient:
[2020-03-01] MEDS ORDERED: CALCIUM CARBONATE 500 MG TAB.CHEW CHEWED ONE (20:42)
[2020-03-02] MEDS: LOPERAMIDE 2 MG CAPSULE PO PRN ×5 (02:34→22:51)
[2020-03-02] MEDS: 0.9 % SODIUM CHLORIDE 10 ML SYRINGE IV SCH ×3 (06:31→20:39)
[2020-03-02] MEDS: PANTOPRAZOLE 40 MG TABLET PO SCH (06:31)
[2020-03-02 07:44] LABS: Basophils # (Auto) 0.02 K/mcL (0.00-0.30); Basophils % (Auto) 0.3 % (0.0-2.0); Eosinophils # (Auto) 0.19 K/mcL (0.00-0.70); Hematocrit 31.8 % (40.1-51.0); Hemoglobin 10.6 g/dL (13.7-17.5); Lymphocytes # (Auto) 1.27 K/mcL (1.50-4.80); Lymphocytes % (Auto) 19.8 % (15.5-49.0); Mean Cell Volume 89.6 fL (80.0-100.0); Mean Corpuscular HGB Conc 33.3 g/dL (31.0-36.0); Mean Platelet Volume 11.8 fL (7.4-10.4); Monocytes # (Auto) 0.76 K/mcL (0.10-0.90); Monocytes % (Auto) 11.9 % (1.0-12.0); Platelet Count 210 K/mcL (140-440); RBC 3.55 M/mcL (4.63-6.08); Red Cell Distribution Width 14.1 % (11.5-14.5); WBC 6.4 K/mcL (4.50-11.00)
[2020-03-02] MEDS ORDERED: CALCIUM CARBONATE 500 MG TAB.CHEW CHEWED ONE (08:00)
[2020-03-02] MEDS: HEPARIN 5,000 UNIT/ML VIAL SQ SCH ×2 (08:11→20:39)
[2020-03-02] MEDS: VITAMIN D3 1,000 UNIT TABLET PO SCH (08:12)
[2020-03-02] MEDS: BISOPROLOL 5 MG TABLET PO SCH (08:12)
[2020-03-02] MEDS: TAMSULOSIN 0.4 MG CAPSULE PO SCH (08:12)
[2020-03-02] MEDS: OXYBUTYNIN CHLORIDE 5 MG TAB.XL.24H PO SCH (08:12)
[2020-03-02] MEDS: FINASTERIDE 5 MG TABLET PO SCH (08:12)
[2020-03-02] MEDS: ASPIRIN 81 MG TAB.CHEW PO SCH (08:12)
[2020-03-02 08:18] LABS: ALT/SGPT 5 U/l (0-40); AST/SGOT 9 U/l (0-37); Albumin 3.4 gm/dL (3.2-5.2); Albumin/Globulin Ratio 1.1 (1.0-2.3); Alkaline Phosphatase 116 U/L (39-117); Bilirubin,Total 0.3 mg/dL (0.0-1.0); Calcium 8.1 mg/dl (8.6-10.4); Carbon Dioxide 18 mmol/L (22-30); Glomerular Filtration Rate 21; Glucose 107 mg/dL (70-105)
[2020-03-02 08:19] LABS: Blood Urea Nitrogen 56 mg/dl (8-23); Chloride 111 mmol/L (96-108)
--- NOTE | 2020-03-02 08:26 | Nephrology Progress Note ---
SUBJECTIVE Subjective Patient information: Note initiated : 03/02/20 at 8:25 am Service Date, if different from initiated Date: [] Patient: Parag Monk 89 y/o M admitted on 02/28/20 for Elevated Creatinine. Chief Complaint: diarrhea, CARLOS Interval history: good spontaneous urine output Scr improving, so is the acidosis. diarrhea restarted patient is sad he cannot be with his for their anniversary Constitutional Vitals: Vital Signs Temp Pulse Resp BP Pulse Ox 36.7 C 68 16 122/70 91 03/02/20 03:40 03/02/20 03:40 03/02/20 06:39 03/02/20 03:40 03/02/20 03:40 Period Temp Pulse Resp BP Sys/Mesa Pulse Ox Last 24 Hr 36.5 C-37.4 C 64-75 16-24 107-125/64-70 90-92 Intake and Output 03/01/20 03/02/20 03/02/20 21:59 05:59 13:59 Intake Total 800 830 Output Total 250 Balance 550 830 Weight 88.269 kg Intake & Output: Intake & Output 03/01/20 03/02/20 03/02/20 21:59 05:59 13:59 Intake Total 800 830 Output Total 250 Balance 550 830 Weight 88.269 kg Intake: Oral 800 830 Output: Void Amount 125 Stool 125 Other: Meal Lunch Percent of Meal Consumed 100% Urine Appearance Clear Urine Color Pale Stool Size Moderate Moderate Stool Color Brown Stool Consistency Loose Loose # Voids 1 1 # Unmeasured Emesis 1 # Bowel Movements 1 1 # of times incontinent of 1 Bowels Additional findings Additional findings: general elderly male, in NAD HEENT NC, AT, eyes non icteric sclerae. moist oral mucosa resp: on RA, non labored respirations extremities: no cyanosis or edema A/P Assessment and plan (1) Acute renal failure: Status: Acute (2) Hypocalcemia: Status: Acute (3) Hypomagnesemia: Status: Resolved (4) Metabolic acidosis: Status: Acute Narrative A/P Narrative: Narrative:Severe, nonoliguric CARLOS. Improving. Peak Scr 5.5 on 02/28/2020 --> 2.6 03/02/2020 CKD stage III, baseline SCR 1.2- 1.4, EGFR 45 as of 07/08/2019 CARLOS most likely multifactorial, prolonged prerenal state in the setting of diarrhea, ARBdiuretic and NSAID use leading to ATN. 02/29/2020 urine dipstick unremarkable 02/28/2020 renal ultrasound R9.7, L9. Echotexture mildly elevated. Simple cyst. No hydronephrosis, prostate markedly enlarged with a volume of 192. Urinary bladder volume 84 cc *ARB, diuretic on hold. *Continue strict I's and O's, avoid nephrotoxins * as long as the patient continues to have diarrhea, it is reasonable to support with iv fluids at maintenance rate, favor LR hemodynamics and volume Clinically euvolemic. 06/15/2019 echocardiogram mild cLVH, LVEF 54% unable to accurately assess diastolic function. RV systolic function normal *decrease bisoprolol to 2.5mg po daily acid-base Bicarbonate 18, bicarbonate replacement was held because of hypocalcemia. level has improved, but diarrhea re-started * if diarrhea persists today 03/02/2020 start sodium bicarbonate 325mg po bid. bone-mineral metabolism Hypocalcemia continues to improve. Phosphorus, magnesium at goal. *give 1 gram calcium carbonate po today *1k units vitamin D heme anemia, hbg 10.6, management per primary team
[2020-03-02] MEDS: 0.9 % SODIUM CHLORIDE 1,000 ML IV SCH ×2 (09:26→20:39)
--- NOTE | 2020-03-02 12:51 | Internal Med Progress Note ---
SUBJECTIVE Subjective Patient information: Note initiated : 03/02/20 at 12:48 pm Service Date, if different from initiated Date: [] Patient: Parag Monk 89 y/o M admitted on 02/28/20 for Elevated Creatinine. Chief Complaint: Patient presented to ED at the request of the family because he appeared weak. He did admit that he has had diarrhea 2-3 times a day for the past several weeks. Denies any abdominal pain denies any fever chills. Thinks it may be stress related because his is in a half-way for it. Evaluation of minor care showed a creatinine of 5.5. Patient states his been urinating fine. Vital signs are stable he has no other pains or complaints. He describes the diarrhea as dark from Pepto-Bismol but before he took the Pepto-Bismol it was a yellow. It is nonbloody. He is never had any similar episodes in the past. He did start Meals on Wheels almost 3 weeks ago. That he cannot think of any inciting etiologies. Does not feel like he is having any urinary issues, he has had urinary retention in the past. 02/28 Patient feeling better today. He denies having diarrhea overnight. Had a decent sleep. No new complaints. 03/01 Patient's creatinine improved still 3.0 Diarrhea has slowed down No abdominal tenderness He was able to work with physical therapy 03/02 Patient continued having severe diarrhea overnight We will no mucus or no blood in stool His initial stool cultures have been negative so far some of them pending If he continued having diarrhea will consider starting him on antibiotics and consider CT of the abdomen His creatinine is 2.6 and restarted him on IV fluids Patient needs to be inpatient for for acute renal failure and continued diarrhea Review of system Constitutional-no fever no chills Respiratory-no shortness of breath no cough no need of oxygen Cardiology-no chest pain no palpitations Abdominal-c diarrhea is worse last night and having cramping and tenderness Urinary-no urine symptoms Neuro-no seizure no headache no focal neuro deficit Psychiatric no anxiety no depression Interval history: Narrative: Constitutional Vitals: Vital Signs Temp Pulse Resp BP Pulse Ox 97.7 F 59 L 18 135/67 93 03/02/20 08:00 03/02/20 08:00 03/02/20 08:00 03/02/20 08:00 03/02/20 08:00 Period Temp Pulse Resp BP Sys/Mesa Pulse Ox Last 24 Hr 97.7 F-99.3 F 59-75 16-24 107-135/64-70 90-93 Intake and Output 03/01/20 03/02/20 03/02/20 21:59 05:59 13:59 Intake Total 800 830 240 Output Total 250 400 Balance 550 830 -160 Weight 194 lb 9.6 oz Intake & Output: Intake & Output 03/01/20 03/02/20 03/02/20 21:59 05:59 13:59 Intake Total 800 830 240 Output Total 250 400 Balance 550 830 -160 Weight 194 lb 9.6 oz Intake: Oral 800 830 240 Output: Void Amount 125 100 Stool 125 300 Other: Meal Lunch Lunch Percent of Meal Consumed 100% 75% Urine Appearance Clear Urine Color Pale Straw Urine Odor Normal Stool Size Moderate Moderate Stool Color Brown Brown Stool Consistency Loose Loose Liquid Watery Loose # Voids 1 1 # Unmeasured Emesis 1 # Bowel Movements 1 1 # of times incontinent of 1 2 Bowels Head Head exam: Present atraumatic, normal inspection and normocephalic Eye Eye exam: Present EOMI; Absent conjunctival injection, periorbital swelling and scleral icterus Neck Neck exam: Present normal inspection; Absent lymphadenopathy and tenderness Respiratory Respiratory exam: Present normal respiratory exam; Absent accessory muscle use, respiratory distress and wheezes Cardiovascular Cardiovascular exam: Absent bradycardia, clicks, gallop, irregular rhythm, JVD and +S4 GI/Abdominal GI/Abdominal exam: Present distended and hyperactive bowel sounds; Absent guarding, mass and tenderness Extremities Exam Extremities exam: Present normal inspection; Absent calf tenderness Neurological Exam Neurological exam: Present alert, CN II-XII intact, oriented X3 and reflexes normal; Absent abnormal gait and motor sensory deficit Skin Skin exam: Absent abrasion, cyanosis, dry and mottled OBJ DATA Labs CBC & Chem 7: 03/02/20 05:50 03/02/20 05:50 Labs: Abnormal Lab Results 03/02/20 03/02/20 03/01/20 05:50 05:50 05:45 RBC 3.55 L Hgb 10.6 L Hct 31.8 L MPV 11.8 H Lymph # (Auto) 1.27 L Chloride 111 H Carbon Dioxide 18 L Anion Gap BUN 56 H Creatinine 2.6 H Glucose 107 H Uric Acid Calcium 8.1 L Phosphorus Magnesium Total Protein 25-OH Vitamin D Total 27.08 L 03/01/20 02/29/20 02/29/20 05:45 05:35 05:35 RBC 3.66 L Hgb 11.0 L Hct 33.2 L MPV 11.9 H Lymph # (Auto) Chloride 112 H Carbon Dioxide 15 L 15 L Anion Gap 19.0 H BUN 36 H 71 H Creatinine 3.0 H 4.4 H Glucose Uric Acid 12.0 H 13.8 H Calcium 7.2 L 6.9 L Phosphorus 4.8 H Magnesium 1.2 L Total Protein 5.8 L 25-OH Vitamin D Total Meds: Medications Acetaminophen (Tylenol) 650 mg PO Q6HP PRN PRN Reason: PAIN/FEVER > 101 Aspirin (Aspirin) 81 mg PO Q48H [facility] Last Admin: 03/02/20 08:12 Dose: 81 mg Documented by: Bisoprolol Fumarate (Zebeta) 5 mg PO DAILY [facility] Last Admin: 03/02/20 08:12 Dose: 5 mg Documented by: Finasteride (Proscar) 5 mg PO QDAY [facility] Last Admin: 03/02/20 08:12 Dose: 5 mg Documented by: Heparin Sodium (Porcine) (Heparin) 5,000 unit SQ Q12 [facility] Last Admin: 03/02/20 08:11 Dose: 5,000 unit Documented by: Potassium Chloride 40 meq/ (Dextrose) 520 mls @ 130 mls/hr IV UD PRN PRN Reason: Potassium < 3 Magnesium Sulfate (Magnesium Sulfate) 2 gm in 50 mls @ 50 mls/hr IV UD PRN PRN Reason: Magnesium </= 1.6 Last Admin: 03/01/20 09:48 Dose: 50 mls/hr Documented by: Sodium Chloride (Sodium Chloride 0.9%) 1,000 mls @ 100 mls/hr IV .Q10H [facility] Last Admin: 03/02/20 09:26 Dose: 100 mls/hr Documented by: Loperamide HCl (Imodium) 2 mg PO PRN PRN PRN Reason: Diarrhea Last Admin: 03/02/20 11:48 Dose: 2 mg Documented by: Ondansetron HCl (Zofran) 4 mg IV Q4HP PRN PRN Reason: Nausea And Vomiting Last Admin: 03/01/20 21:02 Dose: 4 mg Documented by: Oxybutynin Chloride (Ditropan Xl) 5 mg PO QDAY [facility] Last Admin: 03/02/20 08:12 Dose: 5 mg Documented by: Pantoprazole Sodium (Protonix) 40 mg PO QAMAC [facility] Last Admin: 03/02/20 06:31 Dose: 40 mg Documented by: Potassium Chloride (Kdur) 40 meq PO UD PRN PRN Reason: Potssium is 3-3.5 Potassium Chloride (Kdur) 40 meq PO UD PRN PRN Reason: Potassium < 3 Sodium Chloride (Saline Flush) 10 ml IV Q8 [facility] Last Admin: 03/02/20 06:31 Dose: 10 ml Documented by: Tamsulosin HCl (Flomax) 0.8 mg PO QDAY [facility] Last Admin: 03/02/20 08:12 Dose: 0.8 mg Documented by: Vitamin D (Vitamin D3) 1,000 unit PO DAILY [facility] Last Admin: 03/02/20 08:12 Dose: 1,000 unit Documented by: A/P Assessment and plan (1) Acute renal failure: Status: Acute Comment: Severe nonoliguric CARLOS (2) Hypocalcemia: Status: Acute (3) Hypomagnesemia: Status: Acute (4) Metabolic acidosis: Status: Acute Narrative A/P Narrative: Narrative: Time Spent With Patient Time: Total time spent is greater than 50% in coordination of care (as documented) at patient's floor/unit and/or counseling patient: QUALITY Stroke Symptom Onset Unknown: No VTE Deep Vein Thrombosis/Pulmonary Embolism Present on Admission: No
[2020-03-03] MEDS: LOPERAMIDE 2 MG CAPSULE PO PRN ×4 (01:41→20:01)
[2020-03-03] MEDS: 0.9 % SODIUM CHLORIDE 1,000 ML IV SCH ×3 (06:09→17:19)
[2020-03-03] MEDS: 0.9 % SODIUM CHLORIDE 10 ML SYRINGE IV SCH ×3 (06:27→21:30)
[2020-03-03] MEDS: PANTOPRAZOLE 40 MG TABLET PO SCH (06:27)
[2020-03-03 06:55] LABS: Basophils # (Auto) 0.02 K/mcL (0.00-0.30); Basophils % (Auto) 0.3 % (0.0-2.0); Eosinophils # (Auto) 0.14 K/mcL (0.00-0.70); Eosinophils % (Auto) 2.1 % (0.0-7.0); Granulocytes % (Auto) 64.6 % (38.0-78.0); Hematocrit 31.4 % (40.1-51.0); Hemoglobin 10.4 g/dL (13.7-17.5); Lymphocytes # (Auto) 1.32 K/mcL (1.50-4.80); Lymphocytes % (Auto) 19.8 % (15.5-49.0); Mean Cell Volume 89.5 fL (80.0-100.0); Mean Corpuscular HGB Conc 33.1 g/dL (31.0-36.0); Mean Platelet Volume 11.6 fL (7.4-10.4); Monocytes # (Auto) 0.88 K/mcL (0.10-0.90); Monocytes % (Auto) 13.2 % (1.0-12.0); Platelet Count 204 K/mcL (140-440); RBC 3.51 M/mcL (4.63-6.08); Red Cell Distribution Width 14.2 % (11.5-14.5); WBC 6.7 K/mcL (4.50-11.00)
[2020-03-03 07:15] LABS: ALT/SGPT < 5 U/l (0-40); AST/SGOT 8 U/l (0-37); Albumin 3.2 gm/dL (3.2-5.2); Albumin/Globulin Ratio 1.2 (1.0-2.3); Alkaline Phosphatase 112 U/L (39-117); Bilirubin,Total 0.3 mg/dL (0.0-1.0); Blood Urea Nitrogen 44 mg/dl (8-23); Calcium 8.1 mg/dl (8.6-10.4); Carbon Dioxide 18 mmol/L (22-30); Chloride 110 mmol/L (96-108); Globulin 2.7 gm/dL (2.2-3.7); Glomerular Filtration Rate 23; Glucose 125 mg/dL (70-105)
[2020-03-03] MEDS ORDERED: CALCIUM CARBONATE 500 MG TAB.CHEW CHEWED ONE (08:06)
[2020-03-03] MEDS: TAMSULOSIN 0.4 MG CAPSULE PO SCH (08:43)
[2020-03-03] MEDS: HEPARIN 5,000 UNIT/ML VIAL SQ SCH ×2 (08:44→21:30)
[2020-03-03] MEDS: OXYBUTYNIN CHLORIDE 5 MG TAB.XL.24H PO SCH (08:44)
[2020-03-03] MEDS: VITAMIN D3 1,000 UNIT TABLET PO SCH (08:44)
[2020-03-03] MEDS: FINASTERIDE 5 MG TABLET PO SCH (08:44)
[2020-03-03] MEDS: BISOPROLOL 5 MG TABLET PO SCH (08:44)
--- NOTE | 2020-03-03 11:40 | Internal Med Progress Note ---
SUBJECTIVE Subjective Patient information: Note initiated : 03/03/20 at 11:38 am Service Date, if different from initiated Date: [] Patient: Parag Monk 89 y/o M admitted on 02/28/20 for Elevated Creatinine. Chief Complaint: [] Patient presented to ED at the request of the family because he appeared weak. He did admit that he has had diarrhea 2-3 times a day for the past several weeks. Denies any abdominal pain denies any fever chills. Thinks it may be stress related because his is in a longterm for it. Evaluation of minor care showed a creatinine of 5.5. Patient states his been urinating fine. Vital signs are stable he has no other pains or complaints. He describes the diarrhea as dark from Pepto-Bismol but before he took the Pepto-Bismol it was a yellow. It is nonbloody. He is never had any similar episodes in the past. He did start Meals on Wheels almost 3 weeks ago. That he cannot think of any inciting etiologies. Does not feel like he is having any urinary issues, he has had urinary retention in the past. 02/28 Patient feeling better today. He denies having diarrhea overnight. Had a decent sleep. No new complaints. 03/01 Patient's creatinine improved still 3.0 Diarrhea has slowed down No abdominal tenderness He was able to work with physical therapy 03/02 Patient continued having severe diarrhea overnight We will no mucus or no blood in stool His initial stool cultures have been negative so far some of them pending If he continued having diarrhea will consider starting him on antibiotics and consider CT of the abdomen His creatinine is 2.6 and restarted him on IV fluids Patient needs to be inpatient for for acute renal failure and continued diarrhea 03/03/20 Patient continued having diarrhea Creatinine is 2.4 Patient appears to be hypovolemic Continue IV fluid resuscitation Started on ceftriaxone and Flagyl If he continued having diarrhea will obtain a CT Abdominal examination nontender bowel sounds hyperactive Review of system Constitutional-no fever no chills Respiratory-no shortness of breath no cough no need of oxygen Cardiology-no chest pain no palpitations Abdominal-continued having 6-8 bowel movements overnight, no tenderness Urinary-no urine symptoms Neuro-no seizure no headache no focal neuro deficit Psychiatric no anxiety no depression Interval history: Narrative: Constitutional Vitals: Vital Signs Temp Pulse Resp BP Pulse Ox 98.2 F 72 20 128/62 94 03/03/20 07:22 03/03/20 07:22 03/03/20 07:22 03/03/20 07:22 03/03/20 07:22 Period Temp Pulse Resp BP Sys/Mesa Pulse Ox Last 24 Hr 97.2 F-98.5 F 66-84 14-20 100-130/50-62 91-94 Intake and Output 03/02/20 03/03/20 03/03/20 21:59 05:59 13:59 Intake Total 1700 240 Output Total 525 325 Balance 1175 -85 Weight 191 lb 8 oz Intake & Output: Intake & Output 03/02/20 03/03/20 03/03/20 21:59 05:59 13:59 Intake Total 1700 240 Output Total 525 325 Balance 1175 -85 Weight 191 lb 8 oz Intake: IV 1000 Sodium Chloride 0.9% 1,000 ml @ 1000 100 mls/hr IV .Q10H [facility] Rx#: [id number] Oral 700 240 Output: Void Amount 375 325 Stool 150 Other: Meal Lunch Percent of Meal Consumed 100% Urine Appearance Clear Clear Urine Color Bright Yellow Bright Yellow Urine Odor Normal Stool Size Moderate Large Stool Color Brown Brown Green Stool Consistency Liquid Liquid Watery # Voids 1 # Bowel Movements 1 # of times incontinent of 1 1 Bowels Head Head exam: Present atraumatic, normal inspection and normocephalic Eye Eye exam: Present EOMI; Absent periorbital swelling and scleral icterus ENT ENT exam: Present mucous membranes dry, normal exam and normal oropharynx Respiratory Respiratory exam: Absent accessory muscle use, respiratory distress and wheezes Cardiovascular Cardiovascular exam: Absent bradycardia, gallop, JVD, +S4 and systolic murmur GI/Abdominal GI/Abdominal exam: Present distended and hyperactive bowel sounds; Absent guarding, pulsatile mass and tenderness Neurological Exam Neurological exam: Present alert, oriented X3 and reflexes normal; Absent motor sensory deficit Psychiatric Psychiatric exam: Absent agitated, anxious and depressed OBJ DATA Labs CBC & Chem 7: 03/03/20 05:40 03/03/20 05:40 Labs: Abnormal Lab Results 03/03/20 03/03/20 03/02/20 05:40 05:40 05:50 RBC 3.51 L Hgb 10.4 L Hct 31.4 L MPV 11.6 H [place] % (Auto) 13.2 H Lymph # (Auto) 1.32 L Chloride 110 H 111 H Carbon Dioxide 18 L 18 L BUN 44 H 56 H Creatinine 2.4 H 2.6 H Glucose 125 H 107 H Uric Acid Calcium 8.1 L 8.1 L Total Protein 25-OH Vitamin D Total 03/02/20 03/01/20 03/01/20 05:50 05:45 05:45 RBC 3.55 L Hgb 10.6 L Hct 31.8 L MPV 11.8 H [place] % (Auto) Lymph # (Auto) 1.27 L Chloride 112 H Carbon Dioxide 15 L BUN 36 H Creatinine 3.0 H Glucose Uric Acid 12.0 H Calcium 7.2 L Total Protein 5.8 L 25-OH Vitamin D Total 27.08 L Meds: Medications Acetaminophen (Tylenol) 650 mg PO Q6HP PRN PRN Reason: PAIN/FEVER > 101 Aspirin (Aspirin) 81 mg PO Q48H [facility] Last Admin: 03/02/20 08:12 Dose: 81 mg Documented by: Bisoprolol Fumarate (Zebeta) 5 mg PO DAILY [facility] Last Admin: 03/03/20 08:44 Dose: 5 mg Documented by: Ceftriaxone Sodium (Rocephin) 1 gm IV Q24H [facility]; Protocol Finasteride (Proscar) 5 mg PO QDAY [facility] Last Admin: 03/03/20 08:44 Dose: 5 mg Documented by: Heparin Sodium (Porcine) (Heparin) 5,000 unit SQ Q12 [facility] Last Admin: 03/03/20 08:44 Dose: 5,000 unit Documented by: Potassium Chloride 40 meq/ (Dextrose) 520 mls @ 130 mls/hr IV UD PRN PRN Reason: Potassium < 3 Magnesium Sulfate (Magnesium Sulfate) 2 gm in 50 mls @ 50 mls/hr IV UD PRN PRN Reason: Magnesium </= 1.6 Last Admin: 03/01/20 09:48 Dose: 50 mls/hr Documented by: Sodium Chloride (Sodium Chloride 0.9%) 1,000 mls @ 100 mls/hr IV .Q10H [facility] Last Admin: 03/03/20 06:09 Dose: 100 mls/hr Documented by: Metronidazole (Flagyl) 500 mg in 100 mls @ 100 mls/hr IV Q8H [facility]; Protocol Loperamide HCl (Imodium) 2 mg PO PRN PRN PRN Reason: Diarrhea Last Admin: 03/03/20 06:27 Dose: 2 mg Documented by: Ondansetron HCl (Zofran) 4 mg IV Q4HP PRN PRN Reason: Nausea And Vomiting Last Admin: 03/01/20 21:02 Dose: 4 mg Documented by: Oxybutynin Chloride (Ditropan Xl) 5 mg PO QDAY [facility] Last Admin: 03/03/20 08:44 Dose: 5 mg Documented by: Pantoprazole Sodium (Protonix) 40 mg PO QAMAC [facility] Last Admin: 03/03/20 06:27 Dose: 40 mg Documented by: Potassium Chloride (Kdur) 40 meq PO UD PRN PRN Reason: Potssium is 3-3.5 Potassium Chloride (Kdur) 40 meq PO UD PRN PRN Reason: Potassium < 3 Sodium Chloride (Saline Flush) 10 ml IV Q8 [facility] Last Admin: 03/03/20 06:27 Dose: Not Given Documented by: Tamsulosin HCl (Flomax) 0.8 mg PO QDAY [facility] Last Admin: 03/03/20 08:43 Dose: 0.8 mg Documented by: Vitamin D (Vitamin D3) 1,000 unit PO DAILY [facility] Last Admin: 03/03/20 08:44 Dose: 1,000 unit Documented by: A/P Assessment and plan (1) Acute renal failure: Status: Acute Comment: Severe nonoliguric CARLOS (2) Hypocalcemia: Status: Acute (3) Hypomagnesemia: Status: Resolved (4) Metabolic acidosis: Status: Acute Narrative A/P Narrative: Narrative: Acute renal failure Probably due to volume loss from diarrhea Creatinine 2.4 Started him on IV fluid resuscitation NS 100 mils per hour Patient has baseline CKD stage III Continued having good urine output Acute gastroenteritis Stool ova parasite initial results are negative so far and some of them are still pending stool culture pending No absolute indication for antibiotics Continued having diarrhea and started him on Flagyl and ceftriaxone Metabolic acidosis-due to gastroenteritis improved Nephrology planning to start bicarbonate Essential hypertension We will restart home medications as indicated Hyperlipidemia Continue home medications BPH Continue home medications Type 2 diabetes Restart home medications as he can tolerate Blood sugar has been controlled DVT prophylaxis Heparin subcu heparin CODE STATUS-DNR Time Spent With Patient Time: Total time spent is greater than 50% in coordination of care (as documented) at patient's floor/unit and/or counseling patient: QUALITY Stroke Symptom Onset Unknown: No VTE Deep Vein Thrombosis/Pulmonary Embolism Present on Admission: No
[2020-03-03] MEDS: metroNIDAZOLE 500 MG/100 ML BAG IV SCH ×2 (12:05→21:30)
[2020-03-03] MEDS: cefTRIAXone 1 GM VIAL IV SCH (13:19)
[2020-03-04] MEDS: LOPERAMIDE 2 MG CAPSULE PO PRN ×3 (01:17→07:03)
[2020-03-04] MEDS: 0.9 % SODIUM CHLORIDE 1,000 ML IV SCH ×3 (03:31→15:53)
[2020-03-04] MEDS: metroNIDAZOLE 500 MG/100 ML BAG IV SCH ×3 (05:26→21:27)
[2020-03-04] MEDS: 0.9 % SODIUM CHLORIDE 10 ML SYRINGE IV SCH ×3 (05:26→21:28)
[2020-03-04 06:56] LABS: Basophils # (Auto) 0.02 K/mcL (0.00-0.30); Basophils % (Auto) 0.3 % (0.0-2.0); Eosinophils # (Auto) 0.15 K/mcL (0.00-0.70); Eosinophils % (Auto) 2.2 % (0.0-7.0); Granulocytes % (Auto) 63.2 % (38.0-78.0); Hematocrit 29.5 % (40.1-51.0); Hemoglobin 9.9 g/dL (13.7-17.5); Lymphocytes # (Auto) 1.53 K/mcL (1.50-4.80); Lymphocytes % (Auto) 22.1 % (15.5-49.0); Mean Cell Volume 90.2 fL (80.0-100.0); Mean Corpuscular HGB Conc 33.6 g/dL (31.0-36.0); Mean Platelet Volume 11.4 fL (7.4-10.4); Monocytes # (Auto) 0.84 K/mcL (0.10-0.90); Monocytes % (Auto) 12.2 % (1.0-12.0); Platelet Count 197 K/mcL (140-440); RBC 3.27 M/mcL (4.63-6.08); Red Cell Distribution Width 14.1 % (11.5-14.5); WBC 6.9 K/mcL (4.50-11.00)
[2020-03-04] MEDS: PANTOPRAZOLE 40 MG TABLET PO SCH (07:03)
[2020-03-04 07:15] LABS: ALT/SGPT < 5 U/l (0-40); AST/SGOT 7 U/l (0-37); Albumin 3.2 gm/dL (3.2-5.2); Albumin/Globulin Ratio 1.2 (1.0-2.3); Alkaline Phosphatase 94 U/L (39-117); Bilirubin,Total 0.3 mg/dL (0.0-1.0); Blood Urea Nitrogen 34 mg/dl (8-23); Calcium 8.1 mg/dl (8.6-10.4); Carbon Dioxide 18 mmol/L (22-30); Chloride 110 mmol/L (96-108); Globulin 2.6 gm/dL (2.2-3.7); Glomerular Filtration Rate 27; Glucose 116 mg/dL (70-105)
[2020-03-04] MEDS: BISOPROLOL 5 MG TABLET PO SCH (09:01)
[2020-03-04] MEDS: VITAMIN D3 1,000 UNIT TABLET PO SCH (09:01)
[2020-03-04] MEDS: TAMSULOSIN 0.4 MG CAPSULE PO SCH (09:01)
[2020-03-04] MEDS: FINASTERIDE 5 MG TABLET PO SCH (09:01)
[2020-03-04] MEDS: OXYBUTYNIN CHLORIDE 5 MG TAB.XL.24H PO SCH (09:01)
[2020-03-04] MEDS: HEPARIN 5,000 UNIT/ML VIAL SQ SCH ×2 (09:01→21:27)
[2020-03-04] MEDS: cefTRIAXone 1 GM VIAL IV SCH (09:07)
[2020-03-04] MEDS: ASPIRIN 81 MG TAB.CHEW PO SCH (09:12)
--- NOTE | 2020-03-04 21:59 | Internal Med Progress Note ---
SUBJECTIVE Subjective Patient information: Note initiated : 03/04/20 at 9:57 pm Service Date, if different from initiated Date: [] Patient: Praag Monk 89 y/o M admitted on 02/28/20 for Elevated Creatinine. Chief Complaint: [] Patient presented to ED at the request of the family because he appeared weak. He did admit that he has had diarrhea 2-3 times a day for the past several weeks. Denies any abdominal pain denies any fever chills. Thinks it may be stress related because his is in a long-term for it. Evaluation of minor care showed a creatinine of 5.5. Patient states his been urinating fine. Vital signs are stable he has no other pains or complaints. He describes the diarrhea as dark from Pepto-Bismol but before he took the Pepto-Bismol it was a yellow. It is nonbloody. He is never had any similar episodes in the past. He did start Meals on Wheels almost 3 weeks ago. That he cannot think of any inciting etiologies. Does not feel like he is having any urinary issues, he has had urinary retention in the past. 02/28 Patient feeling better today. He denies having diarrhea overnight. Had a decent sleep. No new complaints. 03/01 Patient's creatinine improved still 3.0 Diarrhea has slowed down No abdominal tenderness He was able to work with physical therapy 03/02 Patient continued having severe diarrhea overnight We will no mucus or no blood in stool His initial stool cultures have been negative so far some of them pending If he continued having diarrhea will consider starting him on antibiotics and consider CT of the abdomen His creatinine is 2.6 and restarted him on IV fluids Patient needs to be inpatient for for acute renal failure and continued diarrhea 03/03/20 Patient continued having diarrhea Creatinine is 2.4 Patient appears to be hypovolemic Continue IV fluid resuscitation Started on ceftriaxone and Flagyl If he continued having diarrhea will obtain a CT Abdominal examination non-tender bowel sounds hyperactive 03/04/20 Patient continued having diarrhea Decreased frequency Continue ceftriaxone and Flagyl No fever No other abdominal symptoms Constitutional-no fever no chills Respiratory-no shortness of breath no cough no need of oxygen Cardiology-no chest pain no palpitations Abdominal-continued having diarrhea, reduced frequency Urinary-no urine symptoms Neuro-no seizure no headache no focal neuro deficit Psychiatric no anxiety no depression Interval history: Narrative: Constitutional Vitals: Vital Signs Temp Pulse Resp BP Pulse Ox 99 F 63 20 115/64 97 03/04/20 16:00 03/04/20 11:50 03/04/20 16:00 03/04/20 16:00 03/04/20 16:00 Period Temp Pulse Resp BP Sys/[place] Pulse Ox Last 24 Hr 98.2 F-99 F 63-83 16-20 109-136/57-67 94-97 Intake and Output 03/04/20 03/04/20 03/04/20 05:59 13:59 21:59 Intake Total 1565 1100 500 Output Total 100 Balance 1565 1100 400 Intake & Output: Intake & Output 03/04/20 03/04/20 03/04/20 05:59 13:59 21:59 Intake Total 1565 1100 500 Output Total 100 Balance 1565 1100 400 Intake: IV 1100 1100 100 Sodium Chloride 0.9% 1,000 ml @ 1000 1000 100 mls/hr IV .Q10H [facility] Rx#: [id number] Oral 465 400 Output: Void Amount 100 Other: Urine Appearance Clear Urine Color Dark Yellow Urine Odor Normal Stool Size Moderate Moderate Stool Color Green Green Stool Consistency Liquid Liquid Watery Loose # Voids 1 # Bowel Movements 1 # of times incontinent of 1 Bowels General appearance: mild distress Head Head exam: Present atraumatic, normal inspection and normocephalic Eye Eye exam: Present EOMI and normal appearance; Absent periorbital swelling, pe riorbital tenderness and scleral icterus ENT ENT exam: Present normal external ear exam and normal oropharynx Neck Neck exam: Present full ROM and normal inspection; Absent tenderness Respiratory Respiratory exam: Absent accessory muscle use, respiratory distress, rhonchi and wheezes Cardiovascular Cardiovascular exam: Absent JVD, +S3, +S4 and tachycardia GI/Abdominal GI/Abdominal exam: Present distended and hyperactive bowel sounds; Absent guarding, pulsatile mass and tenderness Extremities Exam Extremities exam: Present normal capillary refill; Absent tenderness Neurological Exam Neurological exam: Present alert, oriented X3 and reflexes normal; Absent motor sensory deficit Psychiatric Psychiatric exam: Present normal mood; Absent anxious, depressed, flat affect and homicidal ideation OBJ DATA Labs CBC & Chem 7: 03/04/20 05:40 03/04/20 05:40 Labs: Abnormal Lab Results 03/04/20 03/04/20 03/03/20 05:40 05:40 05:40 RBC 3.27 L Hgb 9.9 L Hct 29.5 L MPV 11.4 H [place] % (Auto) 12.2 H Lymph # (Auto) Chloride 110 H 110 H Carbon Dioxide 18 L 18 L BUN 34 H 44 H Creatinine 2.1 H 2.4 H Glucose 116 H 125 H Calcium 8.1 L 8.1 L Total Protein 5.8 L 03/03/20 03/02/20 03/02/20 05:40 05:50 05:50 RBC 3.51 L 3.55 L Hgb 10.4 L 10.6 L Hct 31.4 L 31.8 L MPV 11.6 H 11.8 H [place] % (Auto) 13.2 H Lymph # (Auto) 1.32 L 1.27 L Chloride 111 H Carbon Dioxide 18 L BUN 56 H Creatinine 2.6 H Glucose 107 H Calcium 8.1 L Total Protein Meds: Medications Acetaminophen (Tylenol) 650 mg PO Q6HP PRN PRN Reason: PAIN/FEVER > 101 Aspirin (Aspirin) 81 mg PO Q48H [facility] Last Admin: 03/04/20 09:12 Dose: 81 mg Documented by: Bisoprolol Fumarate (Zebeta) 5 mg PO DAILY [facility] Last Admin: 03/04/20 09:01 Dose: 5 mg Documented by: Ceftriaxone Sodium (Rocephin) 1 gm IV Q24H [facility]; Protocol Last Admin: 03/04/20 09:07 Dose: 1 gm Documented by: Finasteride (Proscar) 5 mg PO QDAY [facility] Last Admin: 03/04/20 09:01 Dose: 5 mg Documented by: Heparin Sodium (Porcine) (Heparin) 5,000 unit SQ Q12 [facility] Last Admin: 03/04/20 21:27 Dose: 5,000 unit Documented by: Potassium Chloride 40 meq/ (Dextrose) 520 mls @ 130 mls/hr IV UD PRN PRN Reason: Potassium < 3 Magnesium Sulfate (Magnesium Sulfate) 2 gm in 50 mls @ 50 mls/hr IV UD PRN PRN Reason: Magnesium </= 1.6 Last Admin: 03/01/20 09:48 Dose: 50 mls/hr Documented by: Sodium Chloride (Sodium Chloride 0.9%) 1,000 mls @ 100 mls/hr IV .Q10H [facility] Last Admin: 03/04/20 15:53 Dose: 100 mls/hr Documented by: Metronidazole (Flagyl) 500 mg in 100 mls @ 100 mls/hr IV Q8H [facility]; Protocol Last Admin: 03/04/20 21:27 Dose: 100 mls/hr Documented by: Loperamide HCl (Imodium) 2 mg PO PRN PRN PRN Reason: Diarrhea Last Admin: 03/04/20 07:03 Dose: 2 mg Documented by: Ondansetron HCl (Zofran) 4 mg IV Q4HP PRN PRN Reason: Nausea And Vomiting Last Admin: 03/01/20 21:02 Dose: 4 mg Documented by: Oxybutynin Chloride (Ditropan Xl) 5 mg PO QDAY [facility] Last Admin: 03/04/20 09:01 Dose: 5 mg Documented by: Pantoprazole Sodium (Protonix) 40 mg PO QAMAC [facility] Last Admin: 03/04/20 07:03 Dose: 40 mg Documented by: Potassium Chloride (Kdur) 40 meq PO UD PRN PRN Reason: Potssium is 3-3.5 Potassium Chloride (Kdur) 40 meq PO UD PRN PRN Reason: Potassium < 3 Sodium Chloride (Saline Flush) 10 ml IV Q8 [facility] Last Admin: 03/04/20 21:28 Dose: Not Given Documented by: Tamsulosin HCl (Flomax) 0.8 mg PO QDAY [facility] Last Admin: 03/04/20 09:01 Dose: 0.8 mg Documented by: Vitamin D (Vitamin D3) 1,000 unit PO DAILY [facility] Last Admin: 03/04/20 09:01 Dose: 1,000 unit Documented by: A/P Assessment and plan (1) Acute renal failure: Status: Acute (2) Hypocalcemia: Status: Acute (3) Hypomagnesemia: Status: Resolved (4) Metabolic acidosis: Status: Acute Narrative A/P Narrative: Narrative: acute renal failure Probably due to volume loss from diarrhea Creatinine 2.1 Patient continued having volume loss with the diarrhea Continue IV fluid resuscitation with 100 mils per hour Patient has baseline CKD stage III Continued having good urine output Acute gastroenteritis Stool ova parasite initial results are negative so far and some of them are still pending stool culture pending No absolute indication for antibiotics C. difficile PCR was negative Continued having diarrhea-reduce frequency Continue Flagyl and ceftriaxone Metabolic acidosis-due to gastroenteritis improved Patient was started on bicarbonate Essential hypertension We will restart home medications as indicated Hyperlipidemia Continue home medications BPH Continue home medications Type 2 diabetes Restart home medications as he can tolerate Blood sugar has been controlled DVT prophylaxis Heparin subcu heparin CODE STATUS-DNR Time Spent With Patient Time: Total time spent is greater than 50% in coordination of care (as documented) at patient's floor/unit and/or counseling patient: QUALITY Stroke Symptom Onset Unknown: No VTE Deep Vein Thrombosis/Pulmonary Embolism Present on Admission: No
[2020-03-05] MEDS: ACETAMINOPHEN 325 MG TABLET PO PRN ×2 (00:06→07:37)
[2020-03-05] MEDS: 0.9 % SODIUM CHLORIDE 1,000 ML IV SCH ×4 (00:22→20:56)
[2020-03-05] MEDS: metroNIDAZOLE 500 MG/100 ML BAG IV SCH ×3 (05:51→20:56)
[2020-03-05] MEDS: 0.9 % SODIUM CHLORIDE 10 ML SYRINGE IV SCH ×3 (05:52→20:56)
[2020-03-05] MEDS: LOPERAMIDE 2 MG CAPSULE PO PRN (06:36)
[2020-03-05] MEDS: PANTOPRAZOLE 40 MG TABLET PO SCH (06:36)
[2020-03-05 06:51] LABS: Basophils # (Auto) 0.03 K/mcL (0.00-0.30); Basophils % (Auto) 0.4 % (0.0-2.0); Eosinophils # (Auto) 0.23 K/mcL (0.00-0.70); Eosinophils % (Auto) 2.9 % (0.0-7.0); Granulocytes % (Auto) 60.7 % (38.0-78.0); Hematocrit 29.7 % (40.1-51.0); Hemoglobin 9.8 g/dL (13.7-17.5); Lymphocytes # (Auto) 2.15 K/mcL (1.50-4.80); Lymphocytes % (Auto) 27.2 % (15.5-49.0); Mean Cell Volume 90.5 fL (80.0-100.0); Mean Platelet Volume 11.1 fL (7.4-10.4); Monocytes % (Auto) 8.8 % (1.0-12.0); Platelet Count 209 K/mcL (140-440); RBC 3.28 M/mcL (4.63-6.08); Red Cell Distribution Width 14.2 % (11.5-14.5); WBC 7.9 K/mcL (4.50-11.00)
[2020-03-05 07:09] LABS: ALT/SGPT < 5 U/l (0-40); AST/SGOT 7 U/l (0-37); Albumin 2.7 gm/dL (3.2-5.2); Albumin/Globulin Ratio 1.1 (1.0-2.3); Alkaline Phosphatase 99 U/L (39-117); Bilirubin,Total 0.2 mg/dL (0.0-1.0); Blood Urea Nitrogen 28 mg/dl (8-23); Calcium 7.9 mg/dl (8.6-10.4); Carbon Dioxide 18 mmol/L (22-30); Chloride 113 mmol/L (96-108); Globulin 2.5 gm/dL (2.2-3.7); Glomerular Filtration Rate 29; Glucose 95 mg/dL (70-105)
[2020-03-05] MEDS: MAGNESIUM SULFATE 2 GM/50 ML BAG IV PRN (07:37)
[2020-03-05] MEDS: FINASTERIDE 5 MG TABLET PO SCH (08:07)
[2020-03-05] MEDS: HEPARIN 5,000 UNIT/ML VIAL SQ SCH ×2 (08:07→20:56)
[2020-03-05] MEDS: OXYBUTYNIN CHLORIDE 5 MG TAB.XL.24H PO SCH (08:07)
[2020-03-05] MEDS: TAMSULOSIN 0.4 MG CAPSULE PO SCH (08:07)
[2020-03-05] MEDS: BISOPROLOL 5 MG TABLET PO SCH (08:07)
[2020-03-05] MEDS: VITAMIN D3 1,000 UNIT TABLET PO SCH (08:07)
[2020-03-05] MEDS: cefTRIAXone 1 GM VIAL IV SCH (08:11)
[2020-03-05 10:37] LABS: Norovirus Ag Stool-SO NOT DETECTED
--- NOTE | 2020-03-05 17:58 | Nephrology Progress Note ---
SUBJECTIVE Subjective Patient information: Note initiated : 03/05/20 at 5:56 pm Service Date, if different from initiated Date: [] Patient: Parag Monk 89 y/o M admitted on 02/28/20 for Elevated Creatinine. Chief Complaint: [ARF with diarrhea superimposed on CKD III] Interval history: Narrative: Patient is an 89-year-old gentleman who presented with acute on chronic renal insufficiency in the setting of GI volume loss with diarrhea. He has responded to IV volume expansion and his GFR has been improving. Baseline creatinine is on 1 to 1.3 mg/dL his zenith creatinine was 5.5 and is currently down to 2.0. Stool was negative for ova and parasites and norovirus. Earlier he was C. difficile negative as well as negative for Cryptosporidium. Lipase was normal Thyroid function was normal Prior to hospitalization he probably had a mild contraction alkalosis but on presentation here he had an anion gap positive metabolic acidosis with an anion gap of 20. He will need potassium and magnesium supplementation Constitutional Vitals: Vital Signs Temp Pulse Resp BP Pulse Ox 36.5 C 56 L 18 118/60 95 03/05/20 15:59 03/05/20 15:59 03/05/20 15:59 03/05/20 15:59 03/05/20 15:59 Period Temp Pulse Resp BP Sys/[place] Pulse Ox Last 24 Hr 36.3 C-36.9 C 51-67 16-20 118-147/55-68 94-95 Intake and Output 03/05/20 03/05/20 03/05/20 05:59 13:59 21:59 Intake Total 350 550 100 Output Total 176 300 125 Balance 174 250 -25 Weight 89.584 kg Patient Weight 03/06/20 05:59 Weight 89.584 kg Intake & Output: Intake & Output 03/05/20 03/05/20 03/05/20 05:59 13:59 21:59 Intake Total 350 550 100 Output Total 176 300 125 Balance 174 250 -25 Weight 89.584 kg Intake: IV 100 150 100 Oral 250 400 Output: Void Amount 175 300 125 # of times incontinent of urine 1 Other: Meal Breakfast Percent of Meal Consumed 100% Urine Appearance Clear Clear Clear Urine Color Bright Yellow Light Lori Straw Urine Odor Normal Normal Stool Size Large Stool Color Green Stool Consistency Liquid # Voids 1 General appearance: average body habitus, cooperative and no acute distress Head Head exam: Present atraumatic and normocephalic Eye Eye exam: Present EOMI, normal appearance and PERRL Pupils: Present PERRL ENT ENT exam: Present mucous membranes moist Neck Neck exam: Present full ROM Respiratory Respiratory exam: Present normal respiratory exam and CTAB Cardiovascular Cardiovascular exam: Present normal rate and rhythm, RRR, +S1 and +S2 GI/Abdominal GI/Abdominal exam: Present normal bowel sounds, soft and distended Extremities Exam Extremities exam: Present full ROM; Absent pedal edema and tenderness Neurological Exam Neurological exam: Present CN II-XII intact and oriented X3 Skin Skin exam: Present dry and intact A/P Assessment and plan (1) Acute renal failure: Status: Acute Comment: Improved from peak 5.5 to 2.0 mg/dl with baseline CKD 3 and GFR 1.3 mg/dl (2) Hypocalcemia: Status: Acute Comment: Improved (3) Hypomagnesemia: Status: Resolved Comment: Improved Stop PPI (4) Metabolic acidosis: Status: Acute Comment: Improved Narrative A/P Narrative: Narrative: Dehydration 2/2 to GI fluid losses and furosemide in the setting of RAASI therapy => acute prerenal azotemia which has improved with stopping the ARB/CCB combo, providing IV hydration, and resolution of the diarrhea. Avoid ARB May restart metformin once SCr <1.5 Avoid PPi due to diarrhea and electrolyte issues (decreased Mg) Replace electrolytes as needed. No objection to transfer tomorrow Follow up with Dr Josi Garvey in 2 weeks Time Spent With Patient Time: Total time spent is greater than 50% in coordination of care (as documented) at patient's floor/unit and/or counseling patient:
--- NOTE | 2020-03-05 21:27 | Internal Med Progress Note ---
SUBJECTIVE Subjective Patient information: Note initiated : 03/05/20 at 9:25 pm Service Date, if different from initiated Date: [] Patient: Parag Monk 89 y/o M admitted on 02/28/20 for Elevated Creatinine. Chief Complaint: [] Patient presented to ED at the request of the family because he appeared weak. He did admit that he has had diarrhea 2-3 times a day for the past several weeks. Denies any abdominal pain denies any fever chills. Thinks it may be stress related because his is in a residential for it. Evaluation of minor care showed a creatinine of 5.5. Patient states his been urinating fine. Vital signs are stable he has no other pains or complaints. He describes the diarrhea as dark from Pepto-Bismol but before he took the Pepto-Bismol it was a yellow. It is nonbloody. He is never had any similar episodes in the past. He did start Meals on Wheels almost 3 weeks ago. That he cannot think of any inciting etiologies. Does not feel like he is having any urinary issues, he has had urinary retention in the past. 02/28 Patient feeling better today. He denies having diarrhea overnight. Had a decent sleep. No new complaints. 03/01 Patient's creatinine improved still 3.0 Diarrhea has slowed down No abdominal tenderness He was able to work with physical therapy 03/02 Patient continued having severe diarrhea overnight We will no mucus or no blood in stool His initial stool cultures have been negative so far some of them pending If he continued having diarrhea will consider starting him on antibiotics and consider CT of the abdomen His creatinine is 2.6 and restarted him on IV fluids Patient needs to be inpatient for for acute renal failure and continued diarrhea 03/03/20 Patient continued having diarrhea Creatinine is 2.4 Patient appears to be hypovolemic Continue IV fluid resuscitation Started on ceftriaxone and Flagyl If he continued having diarrhea will obtain a CT Abdominal examination non-tender bowel sounds hyperactive 03/04/20 Patient continued having diarrhea Decreased frequency Continue ceftriaxone and Flagyl No fever No other abdominal symptoms 03/05/2020 Patient continued having diarrhea but significantly reduced frequency Stool is more soft not watery Continue Flagyl and ceftriaxone Creatinine 2.0 Potassium 3.2 and ordered IV replacement Constitutional-no fever no chills Respiratory-no shortness of breath no cough no need of oxygen Cardiology-no chest pain no palpitations Abdominal-continued having diarrhea, reduced frequency Urinary-no urine symptoms Neuro-no seizure no headache no focal neuro deficit Psychiatric no anxiety no depression Interval history: Narrative: Constitutional Vitals: Vital Signs Temp Pulse Resp BP Pulse Ox 97.7 F 76 16 139/71 95 03/05/20 19:27 03/05/20 19:27 03/05/20 19:27 03/05/20 19:27 03/05/20 19:27 Period Temp Pulse Resp BP Sys/[place] Pulse Ox Last 24 Hr 97.3 F-98.4 F 51-76 16-20 118-147/55-71 94-95 Intake and Output 03/05/20 03/05/20 03/05/20 05:59 13:59 21:59 Intake Total 1350 550 340 Output Total 176 300 225 Balance 1174 250 115 Weight 202 lb 5 oz Patient Weight 03/06/20 05:59 Weight 202 lb 5 oz Intake & Output: Intake & Output 03/05/20 03/05/20 03/05/20 05:59 13:59 21:59 Intake Total 1350 550 340 Output Total 176 300 225 Balance 1174 250 115 Weight 202 lb 5 oz Intake: IV 1100 150 100 Sodium Chloride 0.9% 1,000 ml @ 1000 100 mls/hr IV .Q10H [facility] Rx#: [id number] Oral 250 400 240 Output: Void Amount 175 300 225 # of times incontinent of urine 1 Other: Meal Breakfast Dinner Percent of Meal Consumed 100% 100% Feeding Ability Independent Urine Appearance Clear Clear Clear Urine Color Bright Yellow Light Lori Bright Yellow Urine Odor Normal Normal Stool Size Large Stool Color Green Stool Consistency Liquid # Voids 1 General appearance: cooperative and mild distress Head Head exam: Present atraumatic, normal inspection and normocephalic Eye Eye exam: Present EOMI and PERRL; Absent nystagmus, periorbital swelling and scleral icterus Pupils: Absent irregular ENT ENT exam: Present mucous membranes dry, normal external ear exam and normal oropharynx Respiratory Respiratory exam: Absent accessory muscle use, respiratory distress and wheezes Cardiovascular Cardiovascular exam: Absent bradycardia, gallop and systolic murmur GI/Abdominal GI/Abdominal exam: Present soft, distended and hyperactive bowel sounds; Absent guarding and tenderness Neurological Exam Neurological exam: Present alert, oriented X3 and reflexes normal; Absent motor sensory deficit Psychiatric Psychiatric exam: Absent agitated, anxious and depressed OBJ DATA Labs CBC & Chem 7: 03/05/20 05:25 03/05/20 05:25 Labs: Abnormal Lab Results 03/05/20 03/05/20 03/04/20 05:25 05:25 05:40 RBC 3.28 L Hgb 9.8 L Hct 29.7 L MPV 11.1 H [place] % (Auto) Lymph # (Auto) Potassium 3.2 L Chloride 113 H 110 H Carbon Dioxide 18 L 18 L BUN 28 H 34 H Creatinine 2.0 H 2.1 H Glucose 116 H Calcium 7.9 L 8.1 L Magnesium 1.4 L Total Protein 5.2 L 5.8 L Albumin 2.7 L 03/04/20 03/03/20 03/03/20 05:40 05:40 05:40 RBC 3.27 L 3.51 L Hgb 9.9 L 10.4 L Hct 29.5 L 31.4 L MPV 11.4 H 11.6 H [place] % (Auto) 12.2 H 13.2 H Lymph # (Auto) 1.32 L Potassium Chloride 110 H Carbon Dioxide 18 L BUN 44 H Creatinine 2.4 H Glucose 125 H Calcium 8.1 L Magnesium Total Protein Albumin Meds: Medications Acetaminophen (Tylenol) 650 mg PO Q6HP PRN PRN Reason: PAIN/FEVER > 101 Last Admin: 03/05/20 07:37 Dose: 650 mg Documented by: Aspirin (Aspirin) 81 mg PO Q48H [facility] Last Admin: 03/04/20 09:12 Dose: 81 mg Documented by: Bisoprolol Fumarate (Zebeta) 5 mg PO DAILY [facility] Last Admin: 03/05/20 08:07 Dose: 5 mg Documented by: Ceftriaxone Sodium (Rocephin) 1 gm IV Q24H [facility]; Protocol Last Admin: 03/05/20 08:11 Dose: 1 gm Documented by: Finasteride (Proscar) 5 mg PO QDAY [facility] Last Admin: 03/05/20 08:07 Dose: 5 mg Documented by: Heparin Sodium (Porcine) (Heparin) 5,000 unit SQ Q12 [facility] Last Admin: 03/05/20 20:56 Dose: 5,000 unit Documented by: Potassium Chloride 40 meq/ (Dextrose) 520 mls @ 130 mls/hr IV UD PRN PRN Reason: Potassium < 3 Last Admin: 03/05/20 09:12 Dose: 130 mls/hr Documented by: Magnesium Sulfate (Magnesium Sulfate) 2 gm in 50 mls @ 50 mls/hr IV UD PRN PRN Reason: Magnesium </= 1.6 Last Infusion: 03/05/20 08:41 Dose: Infused Documented by: Sodium Chloride (Sodium Chloride 0.9%) 1,000 mls @ 100 mls/hr IV .Q10H [facility] Last Admin: 03/05/20 20:56 Dose: 100 mls/hr Documented by: Metronidazole (Flagyl) 500 mg in 100 mls @ 100 mls/hr IV Q8H [facility]; Protocol Last Admin: 03/05/20 20:56 Dose: 100 mls/hr Documented by: Loperamide HCl (Imodium) 2 mg PO PRN PRN PRN Reason: Diarrhea Last Admin: 03/05/20 06:36 Dose: 2 mg Documented by: Ondansetron HCl (Zofran) 4 mg IV Q4HP PRN PRN Reason: Nausea And Vomiting Last Admin: 03/01/20 21:02 Dose: 4 mg Documented by: Oxybutynin Chloride (Ditropan Xl) 5 mg PO QDAY [facility] Last Admin: 03/05/20 08:07 Dose: 5 mg Documented by: Pantoprazole Sodium (Protonix) 40 mg PO QAMAC [facility] Last Admin: 03/05/20 06:36 Dose: 40 mg Documented by: Potassium Chloride (Kdur) 40 meq PO UD PRN PRN Reason: Potssium is 3-3.5 Potassium Chloride (Kdur) 40 meq PO UD PRN PRN Reason: Potassium < 3 Sodium Chloride (Saline Flush) 10 ml IV Q8 [facility] Last Admin: 03/05/20 20:56 Dose: Not Given Documented by: Tamsulosin HCl (Flomax) 0.8 mg PO QDAY [facility] Last Admin: 03/05/20 08:07 Dose: 0.8 mg Documented by: Vitamin D (Vitamin D3) 1,000 unit PO DAILY [facility] Last Admin: 03/05/20 08:07 Dose: 1,000 unit Documented by: A/P Assessment and plan (1) Acute renal failure: Status: Acute (2) Hypocalcemia: Status: Acute (3) Hypomagnesemia: Status: Resolved (4) Metabolic acidosis: Status: Acute Narrative A/P Narrative: Narrative: acute renal failure- Probably due to volume loss from diarrhea Creatinine 2.0 on admission 5.5 and baseline 1.3 Patient continued having volume loss with the diarrhea Continue IV fluid resuscitation with 100 mils per hour Patient has baseline CKD stage III Continued having good urine output Acute gastroenteritis Stool ova parasite initial results are negative so far and some of them are still pending stool culture pending No absolute indication for antibiotics C. difficile PCR was negative Continued having diarrhea-reduced frequency Continue Flagyl and ceftriaxone Essential hypertension We will restart home medications as indicated Hyperlipidemia Continue home medications BPH Continue home medications Type 2 diabetes Restart home medications as he can tolerate Blood sugar has been controlled DVT prophylaxis Heparin subcu heparin CODE STATUS-DNR Time Spent With Patient Time: Total time spent is greater than 50% in coordination of care (as documented) at patient's floor/unit and/or counseling patient: QUALITY Stroke Symptom Onset Unknown: No VTE Deep Vein Thrombosis/Pulmonary Embolism Present on Admission: No
[2020-03-06] MEDS: 0.9 % SODIUM CHLORIDE 1,000 ML IV SCH (03:42)
[2020-03-06] MEDS: 0.9 % SODIUM CHLORIDE 10 ML SYRINGE IV SCH (04:27)
[2020-03-06] MEDS: metroNIDAZOLE 500 MG/100 ML BAG IV SCH (05:48)
[2020-03-06 06:39] LABS: Basophils # (Auto) 0.07 K/mcL (0.00-0.30); Basophils % (Auto) 0.8 % (0.0-2.0); Eosinophils # (Auto) 0.26 K/mcL (0.00-0.70); Eosinophils % (Auto) 2.8 % (0.0-7.0); Granulocytes % (Auto) 66.5 % (38.0-78.0); Lymphocytes # (Auto) 1.99 K/mcL (1.50-4.80); Lymphocytes % (Auto) 21.8 % (15.5-49.0); Mean Cell Volume 90.1 fL (80.0-100.0); Mean Corpuscular HGB Conc 33.3 g/dL (31.0-36.0); Monocytes # (Auto) 0.74 K/mcL (0.10-0.90); Monocytes % (Auto) 8.1 % (1.0-12.0); Platelet Count 221 K/mcL (140-440); RBC 3.33 M/mcL (4.63-6.08); Red Cell Distribution Width 14.5 % (11.5-14.5); WBC 9.1 K/mcL (4.50-11.00)
[2020-03-06] MEDS: PANTOPRAZOLE 40 MG TABLET PO SCH (06:45)
[2020-03-06 06:55] LABS: ALT/SGPT < 5 U/l (0-40); AST/SGOT 8 U/l (0-37); Albumin/Globulin Ratio 1.2 (1.0-2.3); Alkaline Phosphatase 98 U/L (39-117); Bilirubin,Total 0.2 mg/dL (0.0-1.0); Blood Urea Nitrogen 24 mg/dl (8-23); Calcium 8.1 mg/dl (8.6-10.4); Carbon Dioxide 18 mmol/L (22-30); Chloride 113 mmol/L (96-108); Globulin 2.5 gm/dL (2.2-3.7); Glomerular Filtration Rate 33; Glucose 87 mg/dL (70-105)
[2020-03-06] MEDS: TAMSULOSIN 0.4 MG CAPSULE PO SCH (08:02)
[2020-03-06] MEDS: BISOPROLOL 5 MG TABLET PO SCH (08:02)
[2020-03-06] MEDS: VITAMIN D3 1,000 UNIT TABLET PO SCH (08:02)
[2020-03-06] MEDS: OXYBUTYNIN CHLORIDE 5 MG TAB.XL.24H PO SCH (08:02)
--- NOTE | 2020-03-06 08:02 | Nephrology Progress Note ---
SUBJECTIVE Subjective Patient information: Note initiated : 03/06/20 at 8:00 am Service Date, if different from initiated Date: [] Patient: Parag Monk 89 y/o M admitted on 02/28/20 for Elevated Creatinine. Chief Complaint: [decreased urine] Interval history: Narrative:Diarrhea and diuretic fluid loss + ARB => ARF with SCr 1.3 to 5.5 and now back to 1.8 mg/dl Ok for discharge to outpatient facility .Laboratory Tests 03/06/20 04:58 Sodium 141 Potassium 3.8 Chloride 113 H Carbon Dioxide 18 L Anion Gap 10.0 BUN 24 H Creatinine 1.8 H GFR Calculation 33 Glucose 87 Calcium 8.1 L Magnesium 1.6 Albumin 3.0 L Constitutional Vitals: Vital Signs Temp Pulse Resp BP Pulse Ox 36.8 C 60 16 141/58 93 03/06/20 07:58 03/06/20 07:58 03/06/20 07:58 03/06/20 07:58 03/06/20 07:58 Period Temp Pulse Resp BP Sys/[place] Pulse Ox Last 24 Hr 36.3 C-36.8 C 53-76 14-18 118-141/58-71 92-95 Intake and Output 03/05/20 03/06/20 03/06/20 21:59 05:59 13:59 Intake Total 440 150 Output Total 225 201 101 Balance 215 -51 -101 Weight 91.767 kg Intake & Output: Intake & Output 03/05/20 03/06/20 03/06/20 21:59 05:59 13:59 Intake Total 440 150 Output Total 225 201 101 Balance 215 -51 -101 Weight 91.767 kg Intake: IV 200 Oral 240 150 Output: Void Amount 225 200 100 # of times incontinent of urine 1 1 Other: Meal Dinner Percent of Meal Consumed 100% Feeding Ability Independent Urine Appearance Clear Clear Clear Urine Color Bright Yellow Bright Yellow Pale Urine Odor Normal General appearance: average body habitus and no acute distress Head Head exam: Present atraumatic and normocephalic Eye Eye exam: Present EOMI, normal appearance and PERRL Pupils: Present PERRL ENT ENT exam: Present mucous membranes dry Neck Neck exam: Present full ROM and normal inspection Respiratory Respiratory exam: Present normal respiratory exam and CTAB Cardiovascular Cardiovascular exam: Present normal rate and rhythm, +S1 and +S2; Absent gallop, JVD, rubs and +S3 GI/Abdominal GI/Abdominal exam: Present normal bowel sounds and distended; Absent bruit and tenderness Rectal Rectal exam: Present deferred Extremities Exam Extremities exam: Present full ROM and neurovascular intact; Absent calf tenderness, tenderness and Ruth's sign Back Exam Additional comments: No CVAT Neurological Exam Neurological exam: Present alert, CN II-XII intact and oriented X3 Additional comments: Up in a chair with good balance Psychiatric Psychiatric exam: Present normal affect and normal mood Skin Skin exam: Present dry A/P Assessment and plan (1) Acute renal failure: Status: Acute Comment: Improved from peak 5.5 to 2.0 mg/dl with baseline CKD 3 and GFR 1.3 mg/dl (2) Hypocalcemia: Status: Acute Comment: Improved (3) Hypomagnesemia: Status: Resolved Comment: Improved Stop PPI (4) Metabolic acidosis: Status: Acute Comment: Improved Narrative A/P Narrative: Narrative: No objection [facility]. Anticipate recovery back to a GFR of 40 to 50 cc/min or his baseline creatinine of 1.3 mg/dL Renal follow-up in about [address] Garvey or myself I would avoid ARB's and other RAASI therapy until seen as an outpatient by nephrology Discharge Medications Active and Home Medications:Home Medications bisoprolol fumarate 5 mg PO DAILY 05/09/17 [History Confirmed 02/29/20 Last Taken 02/28/20 5 mg] pravastatin 40 mg PO HS 05/09/17 [History Confirmed 02/29/20 Last Taken 02/27/20 40 mg] aspirin 81 mg tablet,delayed release 81 mg PO Q2D 10/13/17 [History Confirmed 02/29/20 Last Taken 02/27/20 81 mg] pantoprazole 40 mg tablet,delayed release 40 mg PO QDAY 10/13/17 [History Confirmed 02/29/20 Last Taken 02/28/20 40 mg] ferrous gluconate 324 mg (37.5 mg iron) tablet 324 mg PO QDAY tab 12/15/17 [History Confirmed 02/29/20 Last Taken 02/27/20 324 mg] telmisartan 80 mg-amlodipine 5 mg tablet 1 tab PO QDAY 05/27/18 [History Confirmed 02/29/20 Last Taken 02/28/20 1 Dose] I would stop this Rx vitamins A,C,X-dnzx-cfwypk 1 each PO DAILY 06/14/19 [History Confirmed 02/29/20 Last Taken 02/27/20 1 Tab] finasteride 5 mg tablet 5 mg PO QDAY #30 tab 08/23/19 [Rx Confirmed 02/29/20 Last Taken 02/27/20 5 mg] tamsulosin 0.4 mg capsule 0.8 mg PO QDAY #60 cap 08/23/19 [Rx Confirmed 02/29/20 Last Taken 02/27/20 0.8 mg] oxybutynin chloride 5 mg tablet,extended release 24 hr 5 mg PO QDAY #30 tab 02/22/20 [Rx Confirmed 02/29/20 Last Taken 02/28/20 5 mg] amlodipine 5 mg PO QDAY 02/28/20 [History Confirmed 02/29/20 Last Taken 02/28/20 5 mg] diclofenac sodium 1 % TOPICAL PRN PRN 02/29/20 [History Confirmed 02/29/20 Last Taken 02/27/20 1 Application] cefpodoxime 100 mg PO BID #10 tab NS 03/06/20 [Rx Last Taken Unknown] metronidazole [Flagyl] 500 mg PO TID #15 tab NS 03/06/20 [Rx Last Taken Unknown] Time Spent With Patient Time: Total time spent is greater than 50% in coordination of care (as documented) at patient's floor/unit and/or counseling patient:
[2020-03-06] MEDS: HEPARIN 5,000 UNIT/ML VIAL SQ SCH (08:03)
[2020-03-06] MEDS: FINASTERIDE 5 MG TABLET PO SCH (08:03)
[2020-03-06] MEDS: ASPIRIN 81 MG TAB.CHEW PO SCH (08:08)
--- NOTE | 2020-03-06 08:17 | Discharge Summary ---
Discharge Provider Provider Patient information: Note initiated : 03/06/20 at 8:15 am Service Date, if different from initiated Date: [] Patient: Parag Monk 89 y/o M admitted on 02/28/20 for Elevated Creatinine. Chief Complaint: [] Date of admission: 02/28/20 17:38 Discharge date: 03/06/20 Consults: 02/28/20 16:15 Consult to Physician [CONS] Stat Comment: Consulting Provider: Camilla Garvey Reason For Exam: Physician to Consult 02/28/20 16:20 Consult to Physician [CONS] Stat Comment: Consulting Provider: Donovan Terry Reason For Exam: Physician to Consult Discharge Meds Discharge Medications Active and Home Medications: Home Medications bisoprolol fumarate 5 mg PO DAILY 05/09/17 [History Confirmed 02/29/20 Last Taken 02/28/20 5 mg] pravastatin 40 mg PO HS 05/09/17 [History Confirmed 02/29/20 Last Taken 02/27/20 40 mg] aspirin 81 mg tablet,delayed release 81 mg PO Q2D 10/13/17 [History Confirmed 02/29/20 Last Taken 02/27/20 81 mg] pantoprazole 40 mg tablet,delayed release 40 mg PO QDAY 10/13/17 [History Confirmed 02/29/20 Last Taken 02/28/20 40 mg] ferrous gluconate 324 mg (37.5 mg iron) tablet 324 mg PO QDAY tab 12/15/17 [History Confirmed 02/29/20 Last Taken 02/27/20 324 mg] telmisartan 80 mg-amlodipine 5 mg tablet 1 tab PO QDAY 05/27/18 [History Confirmed 02/29/20 Last Taken 02/28/20 1 Dose] vitamins A,C,V-oxwt-gymobr 1 each PO DAILY 06/14/19 [History Confirmed 02/29/20 Last Taken 02/27/20 1 Tab] finasteride 5 mg tablet 5 mg PO QDAY #30 tab 08/23/19 [Rx Confirmed 02/29/20 Last Taken 02/27/20 5 mg] tamsulosin 0.4 mg capsule 0.8 mg PO QDAY #60 cap 08/23/19 [Rx Confirmed 02/29/20 Last Taken 02/27/20 0.8 mg] oxybutynin chloride 5 mg tablet,extended release 24 hr 5 mg PO QDAY #30 tab 02/22/20 [Rx Confirmed 02/29/20 Last Taken 02/28/20 5 mg] amlodipine 5 mg PO QDAY 02/28/20 [History Confirmed 02/29/20 Last Taken 02/28/20 5 mg] diclofenac sodium 1 % TOPICAL PRN PRN 02/29/20 [History Confirmed 02/29/20 Last Taken 02/27/20 1 Application] cefpodoxime 100 mg PO BID #10 tab NS 03/06/20 [Rx Last Taken Unknown] metronidazole [Flagyl] 500 mg PO TID #15 tab NS 03/06/20 [Rx Last Taken Unknown] COURSE Hospital Course Hospital Course: Patient presented to ED at the request of the family because he appeared weak. He did admit that he has had diarrhea 2-3 times a day for the past several weeks. Denies any abdominal pain denies any fever chills. Thinks it may be stress related because his is in a senior living for it. Evaluation of minor care showed a creatinine of 5.5. Patient states his been urinating fine. Vital signs are stable he has no other pains or complaints. He describes the diarrhea as dark from Pepto-Bismol but before he took the Pepto-Bismol it was a yellow. It is nonbloody. He is never had any similar episodes in the past. He did start Meals on Wheels almost 3 weeks ago. That he cannot think of any inciting etiologies. Does not feel like he is having any urinary issues, he has had urinary retention in the past. 02/28 Patient feeling better today. He denies having diarrhea overnight. Had a decent sleep. No new complaints. 03/01 Patient's creatinine improved still 3.0 Diarrhea has slowed down No abdominal tenderness He was able to work with physical therapy 03/02 Patient continued having severe diarrhea overnight We will no mucus or no blood in stool His initial stool cultures have been negative so far some of them pending If he continued having diarrhea will consider starting him on antibiotics and consider CT of the abdomen His creatinine is 2.6 and restarted him on IV fluids Patient needs to be inpatient for for acute renal failure and continued diarrhea 03/03/20 Patient continued having diarrhea Creatinine is 2.4 Patient appears to be hypovolemic Continue IV fluid resuscitation Started on ceftriaxone and Flagyl If he continued having diarrhea will obtain a CT Abdominal examination non-tender bowel sounds hyperactive 03/04/20 Patient continued having diarrhea Decreased frequency Continue ceftriaxone and Flagyl No fever No other abdominal symptoms 03/05/2020 Patient continued having diarrhea but significantly reduced frequency Stool is more soft not watery Continue Flagyl and ceftriaxone Creatinine 2.0 Potassium 3.2 and ordered IV replacement 03/06/2020 Patient's diarrhea resolved and no bowel movements last 24-hour More formed stool yesterday Antibiotics changed to Flagyl p.o. 500 3 times daily and Cefpodoxime 200 twice daily for 5 days Creatinine improved to 1.8 and his baseline is around 1.5 He probably had some ATN This needs to be followed up with the primary care provider Encouraged the patient to drink lots of water and electrolytes Constitutional-no fever no chills Respiratory-no shortness of breath no cough no need of oxygen Cardiology-no chest pain no palpitations Abdominal-continued having diarrhea, reduced frequency Urinary-no urine symptoms Neuro-no seizure no headache no focal neuro deficit Psychiatric no anxiety no depression acute renal failure- Probably due to volume loss from diarrhea Creatinine 1.8 on admission 5.5 and baseline 1.3 He probably developed some ATN with a hypovolemic renal injury Continue IV fluid resuscitation with 100 mils per hour during the hospital stay Patient diarrhea stopped last 24-hour and IV fluids stopped encouraged him to take p.o. Patient has baseline CKD stage III Continued having good urine output Acute gastroenteritis Stool ova parasite initial results are negative so far and some of them are still pending stool culture pending No absolute indication for antibiotics C. difficile PCR was negative Continued having diarrhea-reduced frequency Continue Flagyl and ceftriaxone for 3 days during the hospital stay Changed to p.o. Flagyl and cefpodoxime Needs to follow-up with the primary care provider to make sure complete resolution of symptoms Essential hypertension We will restart home medications as indicated Hyperlipidemia Continue home medications BPH Continue home medications Type 2 diabetes Restart home medications as he can tolerate Blood sugar has been controlled Discharge diagnosis: Acute renal failure probably due to diuretics and diarrhea, diarrhea probably due to metformin or acute gastroenteritis Time Spent with Patient Time attestation: Total time spent providing and/or coordinating discharge services: Time spent: Greater than 30 minutes EXAM Constitutional Vitals: Temp Pulse Resp BP Pulse Ox 98.2 F 60 16 141/58 93 03/06/20 07:58 03/06/20 07:58 03/06/20 07:58 03/06/20 07:58 03/06/20 07:58 General appearance: no acute distress Head Head exam: Present atraumatic and normal inspection Eye Eye exam: Present EOMI; Absent periorbital swelling and scleral icterus ENT ENT exam: Present mucous membranes moist, normal exam and normal oropharynx Respiratory Respiratory exam: Present CTAB; Absent accessory muscle use, respiratory distress and wheezes Cardiovascular Cardiovascular exam: Absent bradycardia, +S3, +S4 and tachycardia GI/Abdominal GI/Abdominal exam: Present normal bowel sounds; Absent hyperactive bowel sounds Neurological Exam Neurological exam: Present alert, oriented X3 and reflexes normal; Absent motor sensory deficit Psychiatric Psychiatric exam: Absent agitated and anxious Discharge Data Data Completed and Pending Labs on day of discharge: Labs from last 24 hours 03/06/20 03/06/20 02/28/20 04:58 04:58 18:10 WBC 9.1 RBC 3.33 L Hgb 10.0 L Hct 30.0 L MCV 90.1 MCH 30.0 MCHC 33.3 RDW 14.5 Plt Count 221 MPV 11.0 H Gran % 66.5 Lymph % (Auto) 21.8 [place] % (Auto) 8.1 Eos % (Auto) 2.8 Baso % (Auto) 0.8 Gran # 6.07 Lymph # (Auto) 1.99 [place] # (Auto) 0.74 Eos # (Auto) 0.26 Baso # (Auto) 0.07 Sodium 141 Potassium 3.8 Chloride 113 H Carbon Dioxide 18 L Anion Gap 10.0 BUN 24 H Creatinine 1.8 H GFR Calculation 33 Glucose 87 Calcium 8.1 L Magnesium 1.6 Total Bilirubin 0.2 AST 8 ALT < 5 Alkaline Phosphatase 98 Total Protein 5.5 L Albumin 3.0 L Globulin 2.5 Albumin/Globulin Ratio 1.2 Stool Norovirus Ag Not detected Discharge Plan Patient/Caregiver Discharge Instructions Activity: ambulate only with your walker and as per physical therapy Diet: Regular Diet Activity Restrictions/Additional Instructions: Stop taking furosemide (water pill) which might be causing kidney failure Stop taking metformin-which might be causing diarrhea, discuss this with your primary care provider Prescriptions: New metronidazole [Flagyl] 500 mg tablet 500 mg PO TID Qty: 15 RF: 0 cefpodoxime 100 mg tablet 100 mg PO BID Qty: 10 RF: 0 Continued oxybutynin chloride 5 mg tablet extended release 24hr 5 mg PO QDAY Qty: 30 RF: 2 aspirin 81 mg tablet,delayed release (DR/EC) 81 mg PO Q2D RF: 0 pantoprazole 40 mg tablet,delayed release (DR/EC) 40 mg PO QDAY RF: 0 pravastatin 40 MG tablet 40 mg PO HS RF: 0 bisoprolol fumarate 5 MG tablet 5 mg PO DAILY RF: 0 vitamins A,C,L-czob-rxhmhk 1 EACH capsule 1 each PO DAILY RF: 0 amlodipine 5 mg Tablet 5 mg PO QDAY RF: 0 diclofenac sodium 1 % gel 1 % TOPICAL PRN PRN (Reason: Pain) RF: 0 ferrous gluconate 324 mg (37.5 mg iron) tablet 324 mg PO QDAY RF: 0 telmisartan-amlodipine 80-5 mg tablet 1 tab PO QDAY RF: 0 finasteride 5 mg tablet 5 mg PO QDAY Qty: 30 RF: 11 tamsulosin 0.4 mg capsule 0.8 mg PO QDAY Qty: 60 RF: 11 Discontinued metformin 500 MG tablet 750 mg PO BIDCC RF: 0 furosemide 20 mg tablet 20 mg PO QDAY RF: 0 Follow Up Plan Follow up with: Camilla Garvey MD [Physician] - (7-10 days ) Patient Disposition: Xfer SNF Prognosis: Fair Rehab Potential: Fair I certify that the patient requires SNF services: Yes Overall status at discharge: patient is progressing back to baseline Discharge Orders: Discharge Order (Routine); Ordered 03/06/20 Ordered By: Charly Rose Discharge Comment: PCP follow up in 7 days QUALITY VTE Deep Vein Thrombosis/Pulmonary Embolism Present on Admission: No
[2020-03-06] MEDS: MAGNESIUM SULFATE 2 GM/50 ML BAG IV PRN (09:42)
[2020-03-06] MEDS: cefTRIAXone 1 GM VIAL IV SCH (10:57)
== END 2020-03-06 11:10 | DRG 683 ==
LOC: ED 14:57 → MEDSUR 17:38
PROVIDERS: ADMIT Internal Medicine; ATTEND Internal Medicine